=== PATIENT | male | born 1940 | race African-American/Black ===

== ENCOUNTER 2017-06-04 02:59 | Inpatient (IN) | payer MEDICARE ==
--- OUTSIDE RECORDS SUMMARY | 2017-06-04 03:02 | XMS | Continuity of Care Document ---
:[address] [facility] Care Team Providers Name Role Phone NOLOCAL, PRIMARY Primary Care Physician Unavailable Insurance Providers Payer Name Policy Number Subscriber Name Relationship VISN 16 [facility] [id number] LISA MONDRAGON SELF/SAME PATIENT Advance Directives Directive Response Recorded Date/Time Advance Directive? N 03/08/16 5:18pm Living Will? N 03/08/16 5:18pm Health Care Proxy? N 03/08/16 5:18pm Healthcare Power of Dry Primer Powder Blender? N 03/08/16 5:18pm Is the patient an Organ Donor? N 03/08/16 5:18pm Chief Complaint and Reason for Visit Reason for Visit "OFF BALANCE,ELEVATED BP" Problems No problem information available. Medications Current Home Medications Medication Dose Units Route Directions Days/Qty Instructions Start Date Clonidine 0.2 MG PO EVERY DAY @ 0900 14 03/08/16 Hydrochloride (CLONIDINE 0.2 MG TAB) 0.2 MG TAB Meclizine HCl 25 MG PO TWICE A DAY 14 03/08/16 (MECLIZINE 25 MG (0900; 2100) PRN TAB) 25 MG TAB DIZZINESS Social History Problem Response Recorded Date Recreational drugs? N 03/08/16 Alcohol? Y 03/08/16 Query Response Start Date Stop Date Smoking Status: Never Smoker Hospital Discharge Instructions No hospital discharge instructions. Plan of Care Discharge Date 03/08/16 Disposition HOME/SELF CARE Condition at Discharge STABLE Instructions/Education Provided DI for High Blood Pressure DI for Arthritis Forms Provided Discharge Form Prescriptions See Medications Section Referrals NOLOCAL,PRIMARY CARE DOC - Additional Instructions/Education USE EXTRA STRENGTH TYLENOL DIRECTED OR LOW DOSE IBUPROFEN DIRECTED FOR MORNING STIFFNESS OF ARTHRITIS USE MEDICATIONS DIRECTED PROVIDED TO YOU AND FOLLOWUP WITH YOUR PCP OR CLINIC SOON POSSIBLE Functional Status No functional status results. Allergies, Adverse Reactions, Alerts Allergen Type Severity Reaction Status Last Updated Iodine Allergy Unknown Active 03/08/16 Immunizations No Known History of Immunizations. Vital Signs Vital Reading Collection Date/Time Result Blood Pressure 03/08/16 7:37pm 151/70 Blood Pressure Source 03/08/16 7:07pm Manual Cuff Patient Temperature 03/08/16 7:37pm 98.1 Temperature Source 03/08/16 7:07pm Tympanic Respiratory Rate 03/08/16 7:16pm 17 Pulse Rate 03/08/16 7:37pm 88 Pulse Location 03/08/16 7:07pm Monitor Bedside Pulse Oximetry 03/08/16 7:37pm 98 Height 03/08/16 3:51pm 165.10 cm Height 03/08/16 3:51pm 5 ft 5.00 in Weight 03/08/16 3:51pm 71.214 kg Weight 03/08/16 3:51pm 157 lb 0.00 oz Body Mass Index 03/08/16 3:51pm 26.1 Results Laboratory Results Test Name Result Units Flags Reference Collection Result Comments Date/Time Date/Time White Blood Count 6.8 K/uL 4.8-10.8 03/08/16 03/08/16 5:20pm 5:45pm Red Blood Count 6.07 M/uL H 4.70-6.00 03/08/16 03/08/16 5:20pm 5:45pm Hemoglobin 15.7 g/dL 13.5-17.5 03/08/16 03/08/16 5:20pm 5:45pm Hematocrit 48.7 % 42.0-52.0 03/08/16 03/08/16 5:20pm 5:45pm Mean Corpuscular 80.2 fl 80.0-100.0 03/08/16 03/08/16 Volume 5:20pm 5:45pm Mean Corpuscular 25.9 pg L 27.0-31.0 03/08/16 03/08/16 Hemoglobin 5:20pm 5:45pm Mean Corpuscular 32.3 g/dL 32.0-36.0 03/08/16 03/08/16 Hgb Concent Diff 5:20pm 5:45pm Red Cell 15.9 % H 11.5-14.5 03/08/16 03/08/16 Distribution Width 5:20pm 5:45pm Platelet Count 296 K/uL 130-400 03/08/16 03/08/16 5:20pm 5:45pm Mean Platelet 8.2 fl 03/08/16 03/08/16 Volume 5:20pm 5:45pm Granulocytes (%) 62.8 % 50.0-75.0 03/08/16 03/08/16 5:20pm 5:45pm Lymphocytes % 28.0 % 20.0-40.0 03/08/16 03/08/16 5:20pm 5:45pm Monocytes % 5.6 % 0.0-15.0 03/08/16 03/08/16 5:20pm 5:45pm Eosinophils % 2.9 % 0.0-10.0 03/08/16 03/08/16 5:20pm 5:45pm Basophils % 0.7 % 0.0-2.0 03/08/16 03/08/16 5:20pm 5:45pm Granulocytes # 4.3 K/uL 1.8-6.4 03/08/16 03/08/16 5:20pm 5:45pm Lymphocytes # 1.9 K/uL 1.2-3.6 03/08/16 03/08/16 5:20pm 5:45pm Monocytes # 0.4 K/uL 0.3-0.9 03/08/16 03/08/16 5:20pm 5:45pm Eosinophils # 0.2 K/ul 0.0-0.5 03/08/16 03/08/16 5:20pm 5:45pm BASO # 0.0 K/uL 0.0-0.2 03/08/16 03/08/16 5:20pm 5:45pm Manual NO 03/08/16 03/08/16 Differential 5:20pm 5:45pm Sodium Level 141 mmol/L 135-144 03/08/16 03/08/16 5:20pm 5:50pm Potassium Level 4.0 mmol/L 3.5-5.1 03/08/16 03/08/16 5:20pm 5:50pm Chloride Level 104 mmol/L 101-111 03/08/16 03/08/16 5:20pm 5:50pm Carbon Dioxide 26 mmol/L 22-32 03/08/16 03/08/16 Level 5:20pm 5:50pm Anion Gap 15.0 mmol/L 10-20 03/08/16 03/08/16 5:20pm 5:50pm Random Glucose 82 mg/dL 70-109 03/08/16 03/08/16 Random glucose > 200 mg/dL in a patient with typical 5:20pm 5:50pm symptoms of diabetes (polydipsia, polyuria and unexplained weight loss) satisfies ADA criteria for diabetes mellitus if confirmed by repeat testing on another day. Confirmation is unnecessary when acute metabolic decompensation with hyperglycemia is manifested. Reference: Report of the Expert Committee on the Diagnosis and Classification of Diabetes Mellitus. Diabetes Care, 20:1183, 1997. Blood Urea 15 mg/dL 8-26 03/08/16 03/08/16 Nitrogen 5:20pm 5:50pm Creatinine 1.10 mg/dL 0.61-1.24 03/08/16 03/08/16 5:20pm 5:50pm EGFR Note > 60.0 03/08/16 03/08/16 eGFR (Estimated Glomerular Filtration Rate) 5:20pm 5:50pm Reference Range: >60 ml/min/1.73m eGFR calculation value obtained using the MDRD equation. The reportable reference ranges is recommended to be greater than 60 ml/min/1.73m. This is an estimation of the patient's GFR and clinical correlation is recommended. Calcium Level 9.6 mg/dL 8.9-10.3 03/08/16 03/08/16 5:20pm 5:50pm Albumin 4.4 g/dL 3.5-5.0 03/08/16 03/08/16 5:20pm 5:50pm Total Bilirubin 0.5 mg/dL 0.3-1.2 03/08/16 03/08/16 5:20pm 5:50pm Alkaline 92 IU/L H 32-91 03/08/16 03/08/16 Phosphatase 5:20pm 5:50pm Total Protein 8.2 g/dL H 6.5-8.1 03/08/16 03/08/16 5:20pm 5:50pm Alanine 20 IU/L 7-55 03/08/16 03/08/16 Aminotransferase 5:20pm 5:50pm (ALT/SGPT) Aspartate Amino 22 IU/L 15-41 03/08/16 03/08/16 Transf (AST/SGOT) 5:20pm 5:50pm Globulin 3.8 g/dL H 2.3-3.5 03/08/16 03/08/16 5:20pm 5:50pm Albumin/Globulin 1.0 L 1.2-2.2 03/08/16 03/08/16 Ratio 5:20pm 5:50pm Lipase 22 U/L 22-51 03/08/16 03/08/16 5:20pm 5:50pm Procedures No Known History of Procedures. Encounters Encounter Location Arrival/Admit Date Discharge/Depart Date Attending Provider Departed [facility] 03/08/16 3:47pm 03/08/16 7:37pm Randell GAMBLE [facility] Encounter Diagnosis
[2017-06-04 04:00] LABS: Troponin I 0.049 ng/mL (< 0.028)
[2017-06-04] MEDS ORDERED: Mag-Al 1200 mg/1200 mg/30 ML UDCUP PO PRN (05:42)
[2017-06-04] MEDS ORDERED: Nitroglycerin 0.4 MG TAB (25 Tab Bottle) PO PRN (05:42)
[2017-06-04] MEDS ORDERED: Ondansetron ODT 4 MG TAB PO PRN (05:42)
[2017-06-04] MEDS ORDERED: Senokot 8.6 MG TAB PO PRN (05:42)
[2017-06-04] MEDS ORDERED: Aspirin 300 MG Suppository PR SCH (05:45)
[2017-06-04] MEDS ORDERED: Dextrose 50% Abboject 50 ML SYRINGE SLOW IVP PRN (05:46)
[2017-06-04] MEDS ORDERED: Dextrose 5% in Water 1,000 ML IV PRN (05:46)
[2017-06-04] MEDS ORDERED: HumaLOG 300 UNITS/3 ML VIAL SC PRN ×2 (05:46)
[2017-06-04 06:30] VITALS: BMI 27.7
[2017-06-04 06:44] LABS: Troponin I 0.073 ng/mL (< 0.028)
--- NOTE | 2017-06-04 07:15 | HP-2 ---
DATE OF ADMISSION: 06/04/2017 TIME: 0500 CODE STATUS: FULL CODE. PRIMARY CARE PHYSICIAN: Glory cheema, transferred from [place]. ATTENDING: Dr. Pao Pate. PGY-1: Dr. Lilia Miramontes. HISTORIAN: The patient and nurses. CHIEF COMPLAINT: Altered mental status, weakness, and elevated troponin. HISTORY OF PRESENT ILLNESS: A 77-year-old male who presents to the ED as a transfer from [facility] with an elevated troponin without complaint of chest pain. The patient has a past medical histor y of Alzheimer's dementia and at baseline is alert and oriented x1. The patient is without family i n the room. The patient presented to [place] ED for weakness that was generalized and increase d altered mentation per his family. ER: The patient received 325 mg of aspirin in the ED in [place]. PAST MEDICAL HISTORY: Type 2 diabetes, hypertension, hyperlipidemia, dementia, BPH. PAST SURGICAL HISTORY: Prostatectomy, TURP. ALLERGIES: IODINE. MEDICATIONS: Aspirin 81 mg daily, omeprazole 20 mg daily, HCTZ 25 mg daily, mirtazapine 30 mg at n ight, KCl 20 mEq, amlodipine 10 mg daily, atorvastatin 40 mg daily, metoprolol 50 mg b.i.d., metform in 500 mg once a day, glyburide 5 mg daily, prazosin 1 mg at bedtime, clonidine 0.1 mg q.8 hours p.r .n. SOCIAL HISTORY: Former smoker over 10 years. Denies alcohol use, denies drug use. REVIEW OF SYSTEMS: General: Denies fevers, chills, weight changes. Eyes: Denies vision changes o r eye pain. Respiratory: Denies cough, congestion. Cardiovascular: Denies chest pain, palpitatio ns. Gastrointestinal: Denies nausea, vomiting, diarrhea, constipation. Genitourinary: Denies inc ontinence, dysuria. Skin: Denies rashes or lesions. Musculoskeletal: Denies pain or tenderness. Neurologic: Endorses weakness. Denies numbness. Psychiatric: Denies anxiety, depression. PHYSICAL EXAMINATION: VITAL SIGNS: Blood pressure 144/74, pulse 88, respiratory rate 22, T-max 99, pulse ox 95% on room a ir, current weight 86 kilograms. GENERAL: Alert and oriented x1 to person. No apparent distress, thin, not appropriately interactiv e. EYES: PERRLA. Conjunctivae within normal limits. ENT: Oropharynx within normal limits. NECK: Supple, no lymphadenopathy, no thyromegaly. CARDIOVASCULAR: Regular rate and rhythm. No murmur, rub or gallop. A 2+ pedal pulses. RESPIRATORY: Normal effort, no retractions, clear to auscultation bilaterally. SKIN: Warm and dry. ABDOMEN: Soft, nontender to palpation. Positive bowel sounds in all 4 quadrants. No masses or dis tention. EXTREMITIES: No clubbing or cyanosis. MUSCULOSKELETAL: Structure within normal limits. NEUROLOGIC: No focal deficit. GCS 15. PSYCHIATRIC: Appropriate. LABORATORY DATA AND IMAGING: CBC, white blood cell count 11.7, hemoglobin 13.8, hematocrit 43.3, pl atelets 251. Chemistry: Sodium 140, potassium 3.5, chloride 103, bicarbonate 25, BUN 19, creatinin e 1.43, glucose 153, calcium 9.6, total protein 7.2, albumin 3.8, AST 13, ALT 19, alkaline phosphata se 62, total bilirubin 0.9, GFR 58. Hemoglobin A1c 6.2. CRP 12.96. UA, blood negative, protein ne gative, leukocyte esterase negative, nitrites negative, ketones negative, glucose negative. UDS neg ative. CK-MB 1.5. Troponin 0.051, 0.049. EKG, bifascicular block. Chest x-ray, nodular opacities. Final read pending. CT of the head, no acute intracranial abnormalities. ASSESSMENT AND PLAN: 1. A 77-year-old male presents with weakness, altered mental status and found to have an elevated t roponin, admitted for ACS rule out and deconditioning. 2. ACS rule out. Unable to assess whether the patient is actually having chest pain or not due to the patient's Alzheimer disease. We will admit to inpatient telemetry. We will trend the patient's troponins to complete the ACS rule out. We will provide conservative management given the past [facility] history of dementia and other comorbidities. We will discuss goals of care with the family in the morning and determine if we will proceed with a chemical stress test. 3. Deconditioned with decrease in baseline functional status. The patient presented to [facility] with generalized weakness and altered mentation. The patient has an elevated CRP and leukocytosis of unknown infectious source. Blood cultures were ordered. The patient was without signs of skin ulcer. The patient was without signs of pneumonia on chest x-ray and without signs of infection in his urine. Case management consult will be placed to get a better story of the social environment t he patient is currently living and as the patient came in, covered in fecal matter. PT, OT and spee ch will also be consulted in the morning. 4. Diabetes type 2. Sliding scale insulin was started. 5. Acute kidney injury on chronic kidney disease stage 2. The patient was started on normal saline at 120 mL an hour. 6. Hypertension. The patient's HCTZ and amlodipine were restarted, metoprolol was held and the eleni nidine was held. 7. Benign prostatic hypertrophy. Prazosin was started. 8. Hyperlipidemia, atorvastatin 40 mg daily was started.
[2017-06-04] MEDS: Sodium Chloride 0.9% 1,000 ML IV SCH ×4 (08:54→23:40)
[2017-06-04] MEDS: Docusate 100 MG CAP PO SCH ×3 (08:56→20:20)
[2017-06-04] MEDS: Enoxaparin Sodium 30 MG/0.3 ML SYRINGE SC SCH (08:56)
[2017-06-04] MEDS: Hydrochlorothiazide 25 MG TAB PO SCH (08:56)
[2017-06-04] MEDS ORDERED: Enoxaparin Sodium 40 MG/0.4 ML SYRINGE SC SCH (09:00)
--- NOTE | 2017-06-04 09:37 | PDOC.EVN ---
Event Note - Event Note Event Note: Spoke with Dr. Sampson with Cardiology and presented him the case. He states that with his advanced dementia and eleveated troponins, but with lack of EKG changes , hypotension, or severe symptoms, invasive treatment options would not be pursued. I appreciate Dr. Sampson's recommendations and help on this difficult case.
[2017-06-04 09:49] LABS: Troponin I 0.086 ng/mL (< 0.028)
[2017-06-04] MEDS: Prazosin HCl 1 MG CAP PO SCH ×2 (11:36→20:19)
--- NOTE | 2017-06-04 11:53 | RAD ---
RADIOGRAPH CHEST 1 VIEW: HISTORY: 77-year-old male with elevated C-reactive protein. FINDINGS: The thoracic aorta is tortuous and ectatic. There is no evidence of air space density, pneumothorax , or pulmonary edema. The lateral costophrenic angles are sharp. There is no interval change since 06/03/17. IMPRESSION: 1. No acute pulmonary findings. 2. Ectasia of thoracic aorta. zohreh [] POS: APARNA
[2017-06-04 12:23] LABS: Troponin I 0.082 ng/mL (< 0.028)
[2017-06-04] MEDS ORDERED: Sodium Chloride 0.9% 1,000 ML IV SCH (14:45)
[2017-06-04 14:46] LABS: #Basophils 0.1 thou/uL (0.0-0.2); #Lymphocytes 1.2 thou/uL (1.20-3.40); #Monocytes 1.5 thou/uL (0.11-0.59); #Neutrophils 12.2 thou/uL (1.40-6.50); %Basophils 0.3 % (0.0-1.0); %Eosinophils 0.1 % (0.0-10.0); %Lymphocytes 8.1 % (21.0-51.0); Hematocrit 45.6 % (42.0-52.0); Mean Platelet Volume 7.3 fL (7.4-10.4); Red Blood Cell (RBC) Count 5.33 mill/uL (4.70-6.10)
--- NOTE | 2017-06-04 15:05 | PDOC.EVN ---
Event Note - Event Note Event Note: I was called by the nurse about a temp of 103.0 around 1415. Myself and Dr. Alvares went and evaluated the patient. Patient is alert, but fidgeting with lines, very tremulous, and not responding to questions appropriately, not speaking in sentences. Has dementia at baseline, but speaking with the nurse, he was speaking in full sentences this morning, talking about his recent birthday and such. VS: P-128 RR- 30 T-103.0 PE: General: AOx0, in NAD HEENT: no neck tenderness, negative chin to chest test for stiffness CV: sinus tachycardia, no murmurs Lungs: CTAB Abd: soft, mildly distended, possibly some guarding, and hyperactive bowel sounds : No scrotal tenderness or swelling Extremities: No edema, R knee with mild swelling, no erythema, extremely tender to palpation along medial joint line and extreme tenderness with passive ROM, no wounds noted Neuro: b/l UE hand tremors, not responding to commands, failure to move RLE, but all other extremities with motion, UE hand automotive manager strength 5/5 b/l MSK: no spinal tenderness, tenderness to palpation in b/l knee joints, but much worse in R knee, poor movement of both LE, but able to wiggle toes in LLE, no motion of RLE Plan: 1. Sepsis 2/2 unknown source: patient with fever, tachycardia, tachypnea, elevated CRP, and mild leukocytosis. Will start broad spectrum Abx (Vanc and Zosyn) until source is found and Abx can be deescalated. Urine cx and blood cx ordered. Lactic acid ordered. Will give 1L NS bolus. Possible joint infection , will obtain joint aspirate for evaluation. Will consider head CT and LP for possible meningitis.
[2017-06-04 15:06] LABS: AST (SGOT) 19 U/L (5-34); Alkaline Phosphatase 64 U/L (40-150); Anion Gap 16 mmol/L (10-20); BUN (Urea Nitrogen) 12 mg/dL (8.4-25.7); Bilirubin, Total 1.3 mg/dL (0.2-1.2); Calc. Creatinine Clearance 62 mL/min (70-130); Calcium 10.5 mg/dL (7.8-10.44); Carbon Dioxide 24 mmol/L (23-31); Chloride 99 mmol/L (98-107); Estimated GFR-MDRD 85; Globulin 3.9 g/dL (2.4-3.5); Protein, Total 7.9 g/dL (5.8-8.1)
[2017-06-04 15:07] LABS: ALT (SGPT) 20 U/L (8-55)
[2017-06-04] MEDS ORDERED: Lidocaine 1% (PF) 30 ML VIAL ONE (15:09)
[2017-06-04] MEDS ORDERED: Labetalol HCl 100 MG/20 ML VIAL SLOW IVP PRN (15:21)
[2017-06-04 15:53] LABS: BF Reference Range Comment Note:
[2017-06-04 16:08] LABS: BF Color Yellow
[2017-06-04 16:09] LABS: RBC Count-Automated 55000 /cumm
[2017-06-04 16:33] LABS: Number Cells Counted-Fluids 100
[2017-06-04] MEDS: Piperacillin/Tazobactam 3.375 GM in Sodium Chloride 0.9% 100 ML IVPB SCH ×2 (17:05→23:37)
[2017-06-04] MEDS: Acetaminophen 650 MG Suppository PR PRN ×2 (17:11→20:17)
[2017-06-04 18:28] LABS: Troponin I 0.102 ng/mL (< 0.028)
--- NOTE | 2017-06-04 19:30 | HP ---
DATE OF SERVICE: 06/04/2017 CHIEF COMPLAINT: Altered mental status, weakness, and elevated troponins. HISTORY OF PRESENT ILLNESS: The patient is a 77-year-old -[place] male, who was transferred from the [place] ER to the [place] ER with elevated troponins. The patient was apparently taken to the hospital via EMS, when the family was concerned that he was getting more weak. Per EMS reports, the patient was covered in feces when they first got to him. The patient has advanced dem entia and is unable to offer any history at this time. There are also no family members at bedside to help fill in any additional history. In the ER in [place], he was noted to have elevated tr oponins and he subsequently had been sent to [facility] for further intervention. Patient has r emained stable overnight and has been resting comfortably. For the full history on this patient, please see the resident's dictation. PHYSICAL EXAMINATION: VITAL SIGNS: Temperature 99.0, pulse 107, respiration rate 18, O2 sat 97% on room air, blood pressu re 171/81. GENERAL: The patient is resting comfortably and in no acute distress. HEENT: Pupils are equal, round, reactive to light and accommodation. Extraocular muscles are intac t. HEENT: Oropharynx and nasopharynx are without erythema or exudate. NECK: Supple without lymphadenopathy, thyromegaly, or bruits. CARDIOVASCULAR: Regular rate and rhythm without murmurs, gallops, or rubs. LUNGS: Clear to auscultation bilaterally without wheezing or rhonchi. ABDOMEN: Soft, nontender to palpation with bowel sounds present in four quadrants. There is no gua rding or rebound tenderness present. EXTREMITIES: There is no clubbing, cyanosis, or edema. MUSCULOSKELETAL: Was unable to be assessed as patient was resting. LABORATORY AND X-RAY FINDINGS: 1. CBC: WBC is 11.7, hemoglobin 13.8, hematocrit 43.3, platelet count 251. 2. Coags: PT 14.0, INR 1.1, PTT 29.0. 3. CMP: Sodium 140, potassium 3.5, chloride 103, bicarbonate 25, BUN 19, creatinine 1.43, glucose 153, calcium 9.6, total bilirubin 0.9, AST 13, ALT 19, alkaline phosphatase 62, total protein 7.2, a lbumin 3.8. 4. CRP of 12.96. 5. Troponin, 0.051, 0.049, 0.073, 0.086, 0.082. 6. CK-MB 1.4 to 1.5, CK of 155. 7. Urinalysis unremarkable. 8. Toxicology: UDS and SDS were negative. 9. CT of the brain shows no intracranial hemorrhage, but moderate white matter disease and mild vol ume loss. 10. Chest x-ray shows no acute pulmonary findings and ectasia of the thoracic aorta. 11. EKG shows a bifascicular block. ASSESSMENT AND PLAN: The patient is a 77-year-old male, who presented with generalized weakness, al tered mental status, and elevated troponins. 1. Elevated troponins: The patient has not endorsed any chest pain, shortness of breath, palpitati ons, nausea, or vomiting. Unsure how reliable he is as a historian due to his advanced dementia. W toribio will discuss the case with Cardiology to help determine whether the patient should be worked up fo r this elevated troponin. 2. Altered mental status: Urine and blood cultures are currently pending. Patient was initially a febrile and is still afebrile, though temperature is in the 99s currently. There are no overt signs of infection anywhere. We have not seen any evidence of skin breakdown or ulceration that could in dicate whether the patient has an elevated CRP. We will check a procalcitonin. We are going to rec heck the patient's chest x-ray and try to get a 2-view chest x-ray if possible. At this point in ti me, we will hold off on antibiotics, as the patient has no overt signs of infection. 3. Generalized deconditioning: We will try to contact the patient's family to figure out what his baseline is. It sounds like he was having increasing weakness at home so the patient may need to be placed in a facility for further rehabilitation. We will consult case management. 4. Type 2 diabetes: We will check a hemoglobin A1c and place the patient on a sliding scale insuli n. 5. Acute kidney injury: The patient is being started on IV fluids and we will trend his creatinine . 6. Please see the resident's dictation for the remainder of the history, physical, assessment and p eloise.
[2017-06-04] MEDS: Vancomycin HCl 1 GM in Premix Bag 1 BAG IVPB SCH (20:19)
[2017-06-04] MEDS: Atorvastatin Calcium 40 MG TAB PO SCH (20:19)
[2017-06-05] MEDS: Sodium Chloride 0.9% 1,000 ML IV SCH ×3 (04:20→23:37)
[2017-06-05] MEDS: Piperacillin/Tazobactam 3.375 GM in Sodium Chloride 0.9% 100 ML IVPB SCH ×4 (05:54→23:37)
[2017-06-05 06:09] LABS: #Monocytes 1.2 thou/uL (0.11-0.59); #Neutrophils 11.5 thou/uL (1.40-6.50); %Basophils 0.1 % (0.0-1.0); %Lymphocytes 7.3 % (21.0-51.0); %Monocytes 8.8 % (0.0-10.0); Hematocrit 38.9 % (42.0-52.0); Mean Platelet Volume 7.5 fL (7.4-10.4); Red Blood Cell (RBC) Count 4.55 mill/uL (4.70-6.10); White Blood Cell (WBC) Count 13.7 thou/uL (4.8-10.8)
[2017-06-05 06:32] LABS: Anion Gap 10 mmol/L (10-20); BUN (Urea Nitrogen) 14 mg/dL (8.4-25.7); Calc. Creatinine Clearance 54 mL/min (70-130); Calcium 9.1 mg/dL (7.8-10.44); Carbon Dioxide 25 mmol/L (23-31); Chloride 108 mmol/L (98-107); Cholesterol 107 mg/dl (< 200 Desired); Estimated GFR-MDRD 73; LDL Cholesterol, Calculated 56 mg/dL
--- NOTE | 2017-06-05 08:06 | PDOC.FM ---
- Subjective Subjective: Patient states he had a good night. He states he was able to get some rest. He has dementia at baseline. Apparently he had an episode where he became more altered yesterday with tachycardia, fever, and tachypnea. That has since resolved. I will contact his family for more information and further treatment plans. - Objective Vital Signs & Weight: Vital Signs (12 hours) Temp Pulse Resp BP Pulse Ox 06/05/17 04:00 98.7 F 99 18 131/61 98 06/04/17 23:30 98.7 F 97 20 136/67 100 06/04/17 22:00 99.2 F 06/04/17 20:05 102 F H 102 H 24 H 161/77 H 98 Weight Weight 71.894 kg I&O: 06/04/17 06/05/17 06/06/17 06:59 06:59 06:59 Intake Total 3310 Output Total 1200 Balance 2110 Result Diagrams: 06/05/17 05:48 06/05/17 05:48 <Mustapha Lama - Last Filed: 06/05/17 10:23> - Objective Vital Signs & Weight: Vital Signs (12 hours) Temp Pulse Resp BP BP Pulse Ox 06/05/17 08:35 99 145/68 H 06/05/17 04:00 98.7 F 99 18 131/61 98 Weight Weight 71.894 kg I&O: 06/04/17 06/05/17 06/06/17 06:59 06:59 06:59 Intake Total 3310 Output Total 1200 Balance 2110 Result Diagrams: 06/05/17 05:48 06/05/17 05:48 <Irvin Agustin - Last Filed: 06/05/17 12:35> Phys Exam - Physical Examination HEENT: PERRLA Neck: no nodes, supple Respiratory: no wheezing, clear to auscultation bilateral Cardiovascular: RRR, no significant murmur Gastrointestinal: soft, non-tender, no distention, positive bowel sounds Musculoskeletal: no edema, pulses present Tenderness, swelling, and warmth to right knee. Neurological: non-focal, moves all 4 limbs (Does not want to move Right knee as much as left. ) Generalized weakness. usually walks at home, but can't now. Psychiatric: normal affect Deviation from normal: Dementia Skin: no rash <Mustapha Lama - Last Filed: 06/05/17 10:23> Dx/Plan (1) Sepsis Code(s): A41.9 - SEPSIS, UNSPECIFIED ORGANISM Status: Acute Plan: Episode yesterday. -Likely a source of the Right knee. -elevated CRP 12 on admission -Leukocytosis, monitor CBC -Continue broad spectrum antibiotics until source is known. (2) Inflammation of joint of right knee Code(s): M13.161 - MONOARTHRITIS, NOT ELSEWHERE CLASSIFIED, RIGHT KNEE Status : Acute Plan: Synovial cultures pending ROM decreased Warm and tender joint. (3) Dementia Code(s): F03.90 - UNSPECIFIED DEMENTIA WITHOUT BEHAVIORAL DISTURBANCE Status: Acute Plan: Likely need group home placement. (4) Physical deconditioning Code(s): R53.81 - OTHER MALAISE Status: Acute Plan: Likely need terminal manager placement. (5) Diabetes mellitus Code(s): E11.9 - TYPE 2 DIABETES MELLITUS WITHOUT COMPLICATIONS Status: Acute Plan: -Continue sliding scale insulin -Accuchecks. (6) HTN (hypertension) Code(s): I10 - ESSENTIAL (PRIMARY) HYPERTENSION Status: Acute Plan: -HCTZ and amlopidine from home meds restarted -Labetalol PRN (7) HLD (hyperlipidemia) Code(s): E78.5 - HYPERLIPIDEMIA, UNSPECIFIED Status: Acute Plan: Continue statin (8) [id number] kidney injury Code(s): N17.9 - ACUTE KIDNEY FAILURE, UNSPECIFIED; N18.9 - CHRONIC KIDNEY DISEASE, UNSPECIFIED Status: Acute Plan: -Continue IVF -Monitor with BMP (9) BPH (benign prostatic hyperplasia) Code(s): N40.0 - BENIGN PROSTATIC HYPERPLASIA WITHOUT LOWER URINRY TRACT SYMP Status: Acute Plan: Started Prazosin (10) Elevated troponin Code(s): R74.8 - ABNORMAL LEVELS OF OTHER SERUM ENZYMES Status: Acute Plan: -Discussed case with Dr. Sampson with Cardiology -Recommends no invasive treatment unless symptomatic with EKG changes -Will monitor with EKG and troponins if chest pain occurs. - Plan Plan: Will need discussion with family over group home placement and treatment goals. <Mustapha Lama - Last Filed: 06/05/17 10:23> Attending Addendum - Attending Addendum I personally evaluated the patient and discussed the management with Dr. Lama. I agree with the History, Examination, Assessment and Plan documented above with any addition or exceptions noted below. Alert during my exam. Endorses pain in both knees R>L. Pain with R knee extension or flexion. Culture and Crystals from R knee aspirate pending. A: Sepsis from Right septic knee arthritris vs gout/pseudogout. P: Continue IV Vanc/Zosyn. Await knee aspirate culture/sensitivity and joint fluid for crystals. Mohsen <Irvin Agustin - Last Filed: 06/05/17 12:35>
[2017-06-05] MEDS: Vancomycin HCl 1 GM in Premix Bag 1 BAG IVPB SCH ×2 (08:33→20:42)
[2017-06-05] MEDS: Prazosin HCl 1 MG CAP PO SCH ×2 (08:34→20:43)
[2017-06-05] MEDS: Hydrochlorothiazide 25 MG TAB PO SCH (08:34)
[2017-06-05] MEDS: Enoxaparin Sodium 30 MG/0.3 ML SYRINGE SC SCH (08:35)
[2017-06-05] MEDS: Docusate 100 MG CAP PO SCH ×2 (08:35→20:43)
[2017-06-05] MEDS ORDERED: Enoxaparin Sodium 40 MG/0.4 ML SYRINGE SC SCH (09:00)
[2017-06-05] MEDS: Acetaminophen 325 MG TAB PO PRN (20:43)
[2017-06-05] MEDS: Atorvastatin Calcium 40 MG TAB PO SCH (20:43)
[2017-06-06] MEDS: Piperacillin/Tazobactam 3.375 GM in Sodium Chloride 0.9% 100 ML IVPB SCH ×3 (06:05→17:39)
[2017-06-06 06:38] LABS: #Lymphocytes 0.9 thou/uL (1.20-3.40); #Monocytes 1.1 thou/uL (0.11-0.59); #Neutrophils 10.1 thou/uL (1.40-6.50); %Basophils 0.1 % (0.0-1.0); %Eosinophils 0.1 % (0.0-10.0); %Lymphocytes 7.3 % (21.0-51.0); Hematocrit 35.6 % (42.0-52.0); Mean Platelet Volume 7.7 fL (7.4-10.4); Red Blood Cell (RBC) Count 4.15 mill/uL (4.70-6.10); White Blood Cell (WBC) Count 12.1 thou/uL (4.8-10.8)
--- NOTE | 2017-06-06 06:48 | PDOC.FM ---
Addendum entered and electronically signed by Mustapha Lama MD 06/06/17 11: 37: Patient was found to have Uric acid crystals on knee synovial fluid sample. Will work up as Acute gout exacerbation. Will await blood cultures before discontinuing antibiotics. If blood cultures negative will no longer work with Sepsis diagnosis. Original Note: - Subjective Subjective: Patient states he had a good night. He does state the street catheter bothers him. He denies chest pain, sob, n/v/d. He does note that his Right knee is still painful and does not like to move it. Family and Case management are working together on a placement plan. - Objective Vital Signs & Weight: Vital Signs (12 hours) Temp Pulse Resp BP Pulse Ox 06/06/17 04:00 98.5 F 82 18 148/69 H 96 06/05/17 20:00 100.9 F H 96 16 06/05/17 19:36 100.9 F H 96 16 138/61 Weight Weight 73.936 kg I&O: 06/04/17 06/05/17 06/06/17 06:59 06:59 06:59 Intake Total 3310 3790 Output Total 1200 3200 Balance 2110 590 Result Diagrams: 06/06/17 06:19 06/05/17 05:48 <Mustapha Lama - Last Filed: 06/06/17 11:37> - Objective Vital Signs & Weight: Vital Signs (12 hours) Temp Pulse Resp BP Pulse Ox 06/07/17 08:56 72 06/07/17 08:00 97.5 F L 72 16 139/67 99 06/07/17 04:00 97.9 F 86 22 H 164/76 H 99 06/07/17 00:00 98.0 F 68 20 154/76 H 99 Weight Weight 73.437 kg I&O: 06/06/17 06/07/17 06/08/17 06:59 06:59 06:59 Intake Total 3790 800 Output Total 3200 2000 Balance 590 -1200 Result Diagrams: 06/06/17 06:19 06/06/17 06:19 <Irvin Agustin - Last Filed: 06/07/17 09:12> Phys Exam - Physical Examination HEENT: PERRLA, moist MMs Neck: no nodes, supple Respiratory: no wheezing, clear to auscultation bilateral Cardiovascular: RRR, no significant murmur Gastrointestinal: soft, non-tender, no distention, positive bowel sounds Musculoskeletal: no edema, pulses present Neurological: non-focal, normal sensation, moves all 4 limbs Psychiatric: normal affect Skin: no rash <Mustapha Lama - Last Filed: 06/06/17 11:37> Dx/Plan (2) Inflammation of joint of right knee Code(s): M13.161 - MONOARTHRITIS, NOT ELSEWHERE CLASSIFIED, RIGHT KNEE Status : Acute Plan: -Synovial cultures pending -ROM decreased -Warm and tender joint. -Improving (3) Dementia Code(s): F03.90 - UNSPECIFIED DEMENTIA WITHOUT BEHAVIORAL DISTURBANCE Status: Acute Plan: Likely need detention placement. (4) Physical deconditioning Code(s): R53.81 - OTHER MALAISE Status: Acute Plan: Likely need detention placement. (5) Diabetes mellitus Code(s): E11.9 - TYPE 2 DIABETES MELLITUS WITHOUT COMPLICATIONS Status: Acute Plan: -Continue sliding scale insulin -Accuchecks. (6) HTN (hypertension) Code(s): I10 - ESSENTIAL (PRIMARY) HYPERTENSION Status: Acute Plan: -HCTZ and amlopidine from home meds restarted -Labetalol PRN (7) HLD (hyperlipidemia) Code(s): E78.5 - HYPERLIPIDEMIA, UNSPECIFIED Status: Acute Plan: Continue statin (8) Kvchi-tb-yfbbdpj kidney injury Code(s): N17.9 - ACUTE KIDNEY FAILURE, UNSPECIFIED; N18.9 - CHRONIC KIDNEY DISEASE, UNSPECIFIED Status: Acute Plan: -Continue IVF -Monitor with BMP (9) BPH (benign prostatic hyperplasia) Code(s): N40.0 - BENIGN PROSTATIC HYPERPLASIA WITHOUT LOWER URINRY TRACT SYMP Status: Acute Plan: Started Prazosin (10) Elevated troponin Code(s): R74.8 - ABNORMAL LEVELS OF OTHER SERUM ENZYMES Status: Acute Plan: -Discussed case with Dr. Sampson with Cardiology -Recommends no invasive treatment unless symptomatic with EKG changes -Will monitor with EKG and troponins if chest pain occurs. (11) Sepsis Code(s): A41.9 - SEPSIS, UNSPECIFIED ORGANISM Status: Acute Plan: Episode yesterday. -Likely a source of the Right knee. -elevated CRP 12 on admission -Leukocytosis, monitor CBC -Awaiting cultures -Continue broad spectrum antibiotics until source is known. - Plan Plan: Await case management with placement <Mustapha Lama - Last Filed: 06/06/17 11:37> Attending Addendum - Attending Addendum I personally evaluated the patient and discussed the management on DOS 06/[address] Lama. I agree with the History, Examination, Assessment and Plan documented above with any addition or exceptions noted below. Right knee appears less swollen and the heat and redness have resolved. He is still having pain with any flexion/extension from bent 30 degrees of flexion. Aspirate revealed Uric Acid crystals. A: Sepsis due to acute gouty arthritis of right knee. Sepsis resolved. P: Start Indomethacin tid, colchicine. Check Uric acid and monitor CRP and/or Sed rate along with clinical exam for improvement. [facility] <Irvin Agustin - Last Filed: 06/07/17 09:12>
[2017-06-06 07:00] LABS: Anion Gap 11 mmol/L (10-20); BUN (Urea Nitrogen) 15 mg/dL (8.4-25.7); Calc. Creatinine Clearance 58 mL/min (70-130); Calcium 8.9 mg/dL (7.8-10.44); Carbon Dioxide 23 mmol/L (23-31); Chloride 110 mmol/L (98-107); Estimated GFR-MDRD 78
[2017-06-06] MEDS: Docusate 100 MG CAP PO SCH ×2 (09:45→20:59)
[2017-06-06] MEDS: Prazosin HCl 1 MG CAP PO SCH ×2 (09:45→20:59)
[2017-06-06] MEDS: Hydrochlorothiazide 25 MG TAB PO SCH (09:45)
[2017-06-06] MEDS: Enoxaparin Sodium 30 MG/0.3 ML SYRINGE SC SCH (09:46)
[2017-06-06] MEDS: Vancomycin HCl 1 GM in Premix Bag 1 BAG IVPB SCH ×2 (09:46→20:57)
--- NOTE | 2017-06-06 10:42 | PQF ---
CLINICAL DOCUMENTATION IMPROVEMENT CLARIFICATION FORM: ICD-10 Updated PLEASE DO AN ADDENDUM TO THE PROGRESS NOTE WITH ANY DOCUMENTATION UPDATES OR ADDITIONS AND CARRY THROUGH TO DC SUMMARY. THANK YOU. DATE: 06/06 ATTN : DR. ROMÁN RENDON/ DR. Bernardo GAINES Please exercise your independent, professional judgment in responding to the clarification form. Clinical indicators are provided on the bottom of this form for your review Please check appropriate box(s): [ X] Encephalopathy: Type: [ X ] Acute [ ] Subacute [ ] Chronic Etiology: [ ] Metabolic [ ] Toxic [ X ] Septic [ ] Unspecified [ ] in the setting of underlying dementia [ ] Other (please specify) [ ] Transient Alteration of Awareness [ ] Other diagnosis [ ] Unable to determine In addition, please specify: Present on Admission (POA): [ ] Yes [ ] No [ ] Unable to determine For continuity of documentation, please document condition throughout progress notes and discharge summary. Thank You. CLINICAL INDICATORS - SIGNS / SYMPTOMS / LABS ER PHYSICIAN DOCUMENTATION 06/04: PT TRANSFERRED FROM [place] FOR ELEVATED TROPONINS, WEAKNESS & AMS. PT ALTERED FROM BASELINE ATTENDING H&P DOCUMENTATION 06/04: HX OF PRESENT ILLNESS: PT PRESENTED TO [place] ED FOR WEAKNESS & INCREASED AMS PER HIS FAMILY ASSESSMENT & PLAN: 2: AMS ATTENDING PHYSICIAN EVENT NOTE 06/04: CALLED BY NURSE ABOUT T: 103.0 AROUND 1415. PATIENT IS ALERT, BUT FIDGETING W/LINES, VERY TREMULOUS, AND NOT RESPONDING TO QUESTIONS APPROPRIATELY, NOT SPEAKING IN SENTENCES. HAS DEMENTIA AT BASELINE, BUT SPEAKING WITH THE NURSE, HE WAS SPEAKING IN FULL SENTENCES THIS MORNING, TALKING ABOUT HIS RECENT BIRTHDAY AND SUCH. PLAN: 1. SEPSIS 2/2 UNKNOWN SOURCE WBC: 15.0 RISK FACTORS SEPSIS OF UNKNOWN SOURCE FEVER ALZHEIMER'S DEMENTIA - ALTERED FROM BASELINE TREATMENTS: IV ANTIBIOTICS (ZOSYN & VANCOMYCIN 06/04 TO PRESENT) TELEMETRY MONITORING IVF (NS 06/04 - PRESENT) THANK YOU! Sun (This form is maintained as a part of the permanent medical record) 2014 [employer]. All Rights Reserved Sun Boyle RN, BSN [email or web address] Office: [phone] [facility]
[2017-06-06] MEDS: Sodium Chloride 0.9% 1,000 ML IV SCH ×2 (10:57→14:16)
[2017-06-06 11:00] LABS: Vancomycin, Trough 27.8 ug/mL
[2017-06-06 11:42] LABS: Uric Acid 3.6 mg/dL (3.5-7.2)
[2017-06-06] MEDS: Indomethacin 25 mg Capsule PO SCH ×2 (14:22→20:58)
[2017-06-06] MEDS: Atorvastatin Calcium 40 MG TAB PO SCH (20:58)
[2017-06-06] MEDS: Colchicine 0.6 MG TAB PO SCH (20:58)
[2017-06-06] MEDS: Acetaminophen 325 MG TAB PO PRN (20:58)
[2017-06-07] MEDS: Piperacillin/Tazobactam 3.375 GM in Sodium Chloride 0.9% 100 ML IVPB SCH ×2 (00:38→05:45)
--- NOTE | 2017-06-07 06:44 | PDOC.FM ---
- Subjective Subjective: Patient states he slept all night. He states his knee feels a ton better. He can move his knee now and it doesn't feel as swollen. His only complaint is his street catheter today and I will D/c that this morning. He is awaiting placement into longterm care. - Objective Vital Signs & Weight: Vital Signs (12 hours) Temp Pulse Resp BP Pulse Ox 06/07/17 04:00 97.9 F 86 22 H 164/76 H 99 06/07/17 00:00 98.0 F 68 20 154/76 H 99 06/06/17 20:00 99.1 F 76 20 141/69 H 99 Weight Weight 73.437 kg I&O: 06/05/17 06/06/17 06/07/17 06:59 06:59 06:59 Intake Total 3310 3790 800 Output Total 1200 3200 2000 Balance 2110 590 -1200 Result Diagrams: 06/07/17 10:30 06/07/17 10:30 <Mustapha Lama - Last Filed: 06/07/17 11:26> - Objective Vital Signs & Weight: Vital Signs (12 hours) Temp Pulse Resp BP Pulse Ox 06/07/17 08:56 72 06/07/17 08:00 97.5 F L 72 16 139/67 99 06/07/17 04:00 97.9 F 86 22 H 164/76 H 99 06/07/17 00:00 98.0 F 68 20 154/76 H 99 Weight Weight 73.437 kg I&O: 06/06/17 06/07/17 06/08/17 06:59 06:59 06:59 Intake Total 3790 800 Output Total 3200 2000 100 Balance 590 -1200 -100 Result Diagrams: 06/07/17 10:30 06/07/17 10:30 <Irvin Agustin - Last Filed: 06/07/17 11:41> Phys Exam - Physical Examination HEENT: PERRLA, moist MMs Neck: no nodes, supple Respiratory: no wheezing, clear to auscultation bilateral Cardiovascular: RRR, no significant murmur Gastrointestinal: soft, non-tender, no distention, positive bowel sounds Musculoskeletal: no edema, pulses present Right knee less swollen and more ROM today. Neurological: moves all 4 limbs Psychiatric: normal affect <Mustapha Lama - Last Filed: 06/07/17 11:26> Dx/Plan (1) Gout attack Code(s): M10.9 - GOUT, UNSPECIFIED Status: Acute Plan: -Urate crystals found on synovial fluid sample. -Has had in past. -Started colchicine and indomethacin. (2) Inflammation of joint of right knee Code(s): M13.161 - MONOARTHRITIS, NOT ELSEWHERE CLASSIFIED, RIGHT KNEE Status : Acute Plan: -Synovial cultures pending -ROM decreased -Warm and tender joint. -Improving (3) Dementia Code(s): F03.90 - UNSPECIFIED DEMENTIA WITHOUT BEHAVIORAL DISTURBANCE Status: Acute Plan: Likely need longterm placement. (4) Physical deconditioning Code(s): R53.81 - OTHER MALAISE Status: Acute Plan: Likely need longterm placement. (5) Diabetes mellitus Code(s): E11.9 - TYPE 2 DIABETES MELLITUS WITHOUT COMPLICATIONS Status: Acute Plan: -Continue sliding scale insulin -Accuchecks. (6) HTN (hypertension) Code(s): I10 - ESSENTIAL (PRIMARY) HYPERTENSION Status: Acute Plan: -HCTZ and amlopidine from home meds restarted -Labetalol PRN (7) HLD (hyperlipidemia) Code(s): E78.5 - HYPERLIPIDEMIA, UNSPECIFIED Status: Acute Plan: Continue statin (8) Pppxk-cm-xqpdpym kidney injury Code(s): N17.9 - ACUTE KIDNEY FAILURE, UNSPECIFIED; N18.9 - CHRONIC KIDNEY DISEASE, UNSPECIFIED Status: Acute Plan: -IVF discontinued. -Likely resolved. (9) BPH (benign prostatic hyperplasia) Code(s): N40.0 - BENIGN PROSTATIC HYPERPLASIA WITHOUT LOWER URINRY TRACT SYMP Status: Acute Plan: Started Prazosin (10) Elevated troponin Code(s): R74.8 - ABNORMAL LEVELS OF OTHER SERUM ENZYMES Status: Acute Plan: -Discussed case with Dr. Sampson with Cardiology -Recommends no invasive treatment unless symptomatic with EKG changes -Will monitor with EKG and troponins if chest pain occurs. - Plan Plan: Decided on swingbed in [place]. Awaiting bed opening and insurance approval. <Mustapha Lama - Last Filed: 06/07/17 11:26> Attending Addendum - Attending Addendum I personally evaluated the patient and discussed the management with Dr. Lama. I agree with the History, Examination, Assessment and Plan documented above with any addition or exceptions noted below. Moving right knee without pain. No redness, tenderness or effusion. A: Acute gout improved on NSAID and colchicine. P: await placement for swing bed in [place], continue meds and PT. D/C antibiotics. [facility] <Irvin Agustin - Last Filed: 06/07/17 11:41>
[2017-06-07] MEDS: Colchicine 0.6 MG TAB PO SCH (08:56)
[2017-06-07] MEDS: Docusate 100 MG CAP PO SCH (08:56)
[2017-06-07] MEDS: Hydrochlorothiazide 25 MG TAB PO SCH (08:57)
[2017-06-07] MEDS: Indomethacin 25 mg Capsule PO SCH (08:57)
[2017-06-07] MEDS: Prazosin HCl 1 MG CAP PO SCH (08:57)
[2017-06-07] MEDS: Enoxaparin Sodium 30 MG/0.3 ML SYRINGE SC SCH (08:57)
[2017-06-07 10:55] LABS: #Eosinphils 0.1 thou/uL (0.0-0.7); #Lymphocytes 0.7 thou/uL (1.20-3.40); #Monocytes 0.5 thou/uL (0.11-0.59); #Neutrophils 6.8 thou/uL (1.40-6.50); %Basophils 0.2 % (0.0-1.0); %Eosinophils 0.8 % (0.0-10.0); %Lymphocytes 8.3 % (21.0-51.0); %Monocytes 6.6 % (0.0-10.0); Hematocrit 36.6 % (42.0-52.0); Mean Platelet Volume 7.5 fL (7.4-10.4); Red Blood Cell (RBC) Count 4.28 mill/uL (4.70-6.10)
[2017-06-07 11:18] LABS: Anion Gap 12 mmol/L (10-20); BUN (Urea Nitrogen) 15 mg/dL (8.4-25.7); Calc. Creatinine Clearance 61 mL/min (70-130); Calcium 9.3 mg/dL (7.8-10.44); Carbon Dioxide 25 mmol/L (23-31); Chloride 106 mmol/L (98-107); Estimated GFR-MDRD 83
[2017-06-07 12:36] VITALS: BP 162/75; TEMP 97.8
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
--- NOTE | 2017-06-10 11:57 | EKG ---
Test Reason : ELEVEATE TROP Blood Pressure : / mmHG Vent. Rate : 094 BPM Atrial Rate : 094 BPM P-R Int : 162 ms QRS Dur : 120 ms QT Int : 362 ms P-R-T Axes : 047 -64 021 degrees QTc Int : 452 ms Normal sinus rhythm Right bundle branch block Left anterior fascicular block Bifascicular block Abnormal ECG Confirmed by REBECCA STEINBERG, MADONNA ([id number]), editor farm journal JIM PATE ([id number]) on 06/10/2017 11:57:24 AM Referred By: Confirmed By:MADONNA FERNANDEZ MD
== END 2017-06-07 15:31 | DRG 871 ==
LOC: ERS 02:59 → 2NO 05:32
PROVIDERS: ADMIT Family Medicine; ATTEND Family Medicine
DX: A41.9 Sepsis, unspecified organism (principal); G93.41 Metabolic encephalopathy; N17.9 Acute kidney failure, unspecified; I45.2 Bifascicular block; G30.9 Alzheimer's disease, unspecified; F02.80 Dementia in other diseases classified elsewhere, unspecified severity, without behavioral disturbance, psychotic disturbance, mood disturbance, and anxiety; M10.9 Gout, unspecified; E11.22 Type 2 diabetes mellitus with diabetic chronic kidney disease; E78.5 Hyperlipidemia, unspecified; N40.0 Benign prostatic hyperplasia without lower urinary tract symptoms; Z90.79 Acquired absence of other genital organ(s); Z91.041 Radiographic dye allergy status; Z79.84 Long term (current) use of oral hypoglycemic drugs; Z79.82 Long term (current) use of aspirin; Z87.891 Personal history of nicotine dependence; I12.9 Hypertensive chronic kidney disease with stage 1 through stage 4 chronic kidney disease, or unspecified chronic kidney disease; N18.2 Chronic kidney disease, stage 2 (mild); M17.11 Unilateral primary osteoarthritis, right knee; R74.8 Abnormal levels of other serum enzymes; F41.9 Anxiety disorder, unspecified
CPT/HCPCS: 36415; 36416; 71010; 80048; 80053; 80061; 80202; 82553; 83605; 84145; 84484; 84550; 85025; 85060; 85652; 86140; 87040; 87070; 87086; 87205; 89051; 89060; 93005; 94760; A4216; G8978-GP-CM; G8979-GP-CL; G8987-GO-CL; G8988-GO-CJ; G8996-GN-CK; G8997-GN-CJ; J1650; J2001; J2543; J3370; J7050

== ENCOUNTER 2020-09-21 00:49 | Emergency (ER) | payer MEDICARE, MEDICAID ==
[2020-09-21 02:15] LABS: #Basophils 0.1 thou/uL (0.0-0.2); #Eosinphils 0.2 thou/uL (0.0-0.7); #Lymphocytes 2.3 thou/uL (1.20-3.40); #Monocytes 0.9 thou/uL (0.11-0.59); #Neutrophils 3.9 thou/uL (1.40-6.50); %Basophils 1.1 % (0.0-1.0); %Eosinophils 2.5 % (0.0-10.0); %Lymphocytes 31.3 % (21.0-51.0); %Monocytes 11.8 % (0.0-10.0); %Neutrophils 53.3 % (42.0-75.0); Hemoglobin 13.9 g/dL (14.0-18.0); Mean Corpuscular Hemoglobin 26.9 pg (27.0-31.0); Mean Platelet Volume 7.7 fL (7.4-10.4); Platelet Count 260 thou/uL (130-400); RBC Distribution Width 14.6 % (11.5-14.5); Red Blood Cell (RBC) Count 5.16 mill/uL (4.70-6.10); White Blood Cell (WBC) Count 7.4 thou/uL (4.8-10.8)
[2020-09-21 02:37] LABS: ALT (SGPT) 33 U/L (8-55); AST (SGOT) 19 U/L (5-34); Albumin 3.7 g/dL (3.4-4.8); Alkaline Phosphatase 93 U/L (40-110); Anion Gap 13 mmol/L (10-20); BUN (Urea Nitrogen) 24 mg/dL (8.4-25.7); Bilirubin, Total 0.2 mg/dL (0.2-1.2); Calc. Creatinine Clearance 0 mL/min (70-130); Calcium 9.2 mg/dL (7.8-10.44); Carbon Dioxide 25 mmol/L (23-31); Chloride 111 mmol/L (98-107); Globulin 3.2 g/dL (2.4-3.5); Glucose 85 mg/dL (83-110); Potassium 4.4 mmol/L (3.5-5.1); Protein, Total 6.9 g/dL (5.8-8.1); Sodium 145 mmol/L (136-145)
[2020-09-21 02:53] LABS: Bilirubin Negative (Negative); Blood, Urine Negative (Negative); Clarity Clear (Clear); Glucose, Urine (Dipstick) Normal (Negative); Ketone, Urine Negative (Negative); Leukocyte Negative Leu/uL (Negative); Nitrite Negative (Negative); Protein, Urine (Dipstick) Negative (Neg-Trace); Urobilinogen Normal mg/dL (Less than 2); pH, Urine 5.5 (5.0-9.0)
--- NOTE | 2020-09-21 07:41 | CT ---
PRELIMINARY REPORT/DIRECT RADIOLOGY/EMERGENCY AFTER HOURS PROCEDURE: EXAM: CT Head Without Intravenous Contrast. CLINICAL HISTORY: AMS TECHNIQUE: Axial computed tomography images of the head/brain without intravenous contrast. COMPARISON: CT\SR - CT BRAIN WO CON - 05/18/2017 02:56 AM CDT FINDINGS: BRAIN: No acute intraparenchymal hemorrhage. No mass lesion. No CT evidence for acute territorial inf arct. No midline shift or extra-axial collection. Diffuse cerebral and cerebellar atrophy, slightly progressed. There are subcortical and deep white matter hypodensities which are nonspecific but which statistically most likely reflect changes of chronic small vessel ischemic disease, slightly progressed. ORBITS: The orbits are unremarkable. SINUSES AND MASTOIDS: The paranasal sinuses and mastoid air cells are unremarkable. SOFT TISSUES: No significant facial or scalp soft tissue swelling evident. No radiopaque foreign body is seen. BONES: No acute skull fracture. IMPRESSION: 1. No evidence of acute intracranial abnormality. 2. Diffuse cerebral and cerebellar atrophy, slightly progressed. 3. There are subcortical and deep white matter hypodensities which are nonspecific but which statisti raquel most likely reflect changes of chronic small vessel ischemic disease, slightly progressed. ELECTRONICALLY SIGNED BY: Benigno Mg MD Sep 21, 2020 1:43:23 AM SITE TECHNICIAN FINAL REPORT HEAD CT WITHOUT CONTRAST: DATE: 09/21/2020. COMPARISON: 06/04/2017. HISTORY: Altered mental status. FINDINGS: I agree with the preliminary report. The visualized paranasal sinuses and mastoid air cells are well- aerated. There is no displaced calvarial fracture. There is moderate diffuse cerebral volume loss with associated prominence of the CSF containing spaces. Periventricular, deep, and subcortical white matter hypodensity noted, evidence of small vessel disease. No intracranial hemorrhage, midline shift, or mass effect. IMPRESSION: No acute findings.. Transcribed Date/Time: 09/21/2020 8:03 AM
== END 2020-09-21 03:40 | disposition home or self-care (01) ==
LOC: ERS 00:49
DX: R41.82 Altered mental status, unspecified (principal); F91.9 Conduct disorder, unspecified; M10.9 Gout, unspecified; E11.9 Type 2 diabetes mellitus without complications; I10 Essential (primary) hypertension; E78.00 Pure hypercholesterolemia, unspecified; Z87.891 Personal history of nicotine dependence
CPT/HCPCS: 36415; 51701; 70450; 80053; 81003; 85025; 93005

== ENCOUNTER 2020-09-24 23:18 | Inpatient (IN) | payer MEDICARE, MEDICAID ==
[2020-09-25] MEDS ORDERED: Senokot S 8.6-50 MG TAB PO PRN (00:36)
[2020-09-25] MEDS ORDERED: Acetaminophen 325 MG TAB PO PRN (00:36)
[2020-09-25] MEDS ORDERED: Ondansetron ODT 4 MG TAB PO PRN (00:36)
[2020-09-25] MEDS ORDERED: Dextrose 5% in Water 1,000 ML IV PRN (00:43)
[2020-09-25] MEDS ORDERED: Insulin Regular 300 UNITS/3 ML VIAL SC PRN (00:43)
[2020-09-25] MEDS ORDERED: HumaLOG 300 UNITS/3 ML VIAL SC PRN (00:43)
[2020-09-25] MEDS ORDERED: Dextrose 50% Abboject 50 ML SYRINGE SLOW IVP PRN (00:43)
--- NOTE | 2020-09-25 00:56 | PDOC.HHP ---
Hospitalist HPI - History of Present Illness AMS History of Present Illness: The majority of the H&P was taken from the ER record, [facility] records and nursing notes due to the patient's history of Alzheimer's dementia. The patient is an 80-year-old male who is a resident of [facility] that presents to the emergency department via EMS as a transfer from [place] emergency department for the above complaint. Per ER documentation, the patient became "unresponsive" and hypoxic at the [facility]. Therefore, EMS was called. Patient was brought to [place] emergency department for further evaluation. At [place] ER, the patient presented febrile with a temperature of 100.6F with normal BP, HR, RR and SPO2 saturation. Lactic acid was 2.2, WBC is 19.9 and UA consistent with urinary tract infection. The patient was treated with 2 L normal saline, Levaquin, cefepime and vancomycin IV piggyback and was transferred to our hospital with a diagnosis of sepsis likely from a urinary tract infection. ED Course: [place] ER: T 100.6, NL BP, HR, RR, SPO2. EKG normal sinus rhythm, RBBB Initial troponin indeterminate, BNP 60.8, DD 0.55 CXR borderline heart size, no acute process LA 2.2, WBC 19.9 BUN 28, creatinine 1.88 UA 3+ bacteria, leukocytes, blood SARS influenza negative Medications: 2 L normal saline Levaquin 750 mg IVPB Cefepime 2 g IVPB Vancomycin 2 g IVPB Hospitalist ROS - Review of Systems ROS unobtainable: due to mental status All other systems reviewed; all pertinent +/- noted in HPI/Subj - Medication Medications: 1. Lisinopril 20 mg p.o. daily 2. Hydrochlorothiazide 25 mg p.o. Monday 3. Calcium chloride 20 mEq p.o. Monday 4. Amlodipine 10 mg p.o. daily 5. Atorvastatin 20 mg p.o. daily 6. Metformin 500 mg p.o. daily 7. Tramadol 50 mg p.o. as needed pain 8. Tylenol 650 mg p.o. as needed fever pain 9. Aricept 10 mg p.o. daily 10. Exelon patch 9.5 mg TD daily 11. Latanoprost unknown Allergies: Iodine and iodine-containing products 09/25/20 00:36 Resuscitation Status Routine Co-Sign Provider: Resuscitation Status: FULL: Full Resuscitation Discussed with: Confrimed by [facility] staff Hospitalist History - Past Medical History Cardiac: reports: HTN, Hyperlipidemia HEAD SHIPPER: reports: Dementia Psych: reports: Anxiety Renal/: reports: Chronic renal insuff (Stage III) Endocrine: reports: Diabetes (Type II) - Past Surgical History Past Surgical History: reports: TURP (Status post prostatectomy) - Family History Other Family History: Noncontributory to this case. - Social History Smoking Status: Former smoker (Quit greater than 10 years ago) Alcohol: reports: None Drugs: reports: none Living Situation: Group Home Occupation: Does not work - Exam General Appearance: NAD, awake alert. negative: ill appearing General - other findings: Appears comfortable resting on stretcher Eye: PERRL, anicteric sclera ENT: normocephalic atraumatic, dry oral mucosa Neck: supple, no lymphadenopathy Heart: RRR, no murmur, no gallops, no rubs, normal peripheral pulses Respiratory: CTAB, no wheezes, no rales, no ronchi, normal chest expansion, no tachypnea Gastrointestinal: soft, non-tender, normal bowel sounds, no guarding, no rigidity Gastrointestinal - other findings: No rebound tenderness, palpable fullness mid pelvic region Extremities: no cyanosis, no edema Skin: no rashes Neurological: no focal deficits Psychiatric: flat affect Psychiatric - other findings: Alert, oriented to self, follows commands, answers questions yes/no Hospitalist Results - Labs Lab results: Sodium 144, potassium 5.0, chloride 109, CO2 24, BUN 28, creatinine 1.88, glucose 127, GFR 42 LFTs unremarkable WBC is 19.9, hemoglobin 13.2, hematocrit 42.2, platelets 251 BNP 60.8, DD 0.55 UA blood, leukocytes, 3+ bacteria, squamous epithelial SARS and influenza negative - Radiology Interpretation CT scan - head Status: pending CT scan - chest Status: pending Hospitalist H&P A/P - Problem (1) Sepsis Code(s): A41.9 - SEPSIS, UNSPECIFIED ORGANISM Status: Acute (2) AMS (altered mental status) Code(s): R41.82 - ALTERED MENTAL STATUS, UNSPECIFIED Status: Acute (3) Dehydration Code(s): E86.0 - DEHYDRATION Status: Acute (4) HTN (hypertension) Code(s): I10 - ESSENTIAL (PRIMARY) HYPERTENSION Status: Chronic (5) DM2 (diabetes mellitus, type 2) Status: Chronic Qualifiers: Diabetes mellitus lobsterman insulin use: without lobsterman use (6) Glaucoma Code(s): H40.9 - UNSPECIFIED GLAUCOMA Status: Chronic (7) Alzheimer's dementia Code(s): G30.9 - ALZHEIMER'S DISEASE, UNSPECIFIED; F02.80 - DEMENTIA IN OTH DISEASES CLASSD ELSWHR W/O BEHAVRL DISTURB Status: Chronic - Plan Plan: A [facility] resident with history of dementia diabetes presents for altered mental status and hypoxia. #Sepsis Presented T 100.6 F, WBC 19.9, LA 2.2 UA 3+ bacteria, leukocytes, with squamous epithelial cells CXR no acute process Suspected urinary source Received Levaquin, cefepime, vancomycin, 2L NS in ER Start Zosyn. Repeat lactic acid. Blood/urine CX pending #AMS Documented episode unresponsive and hypoxic at [place]. A: NAD, 98% RA Influenza and SARS negative. Order stat CT head and chest. #Dehydration BUN 28, creatinine 1.88 Received 2L NS in ER. Recheck level in a.m. #HTN Presented normotensive. Takes lisinopril, HCTZ, amlodipine at home. Restart lisinopril and amlodipine. Hold HCTZ for now. #DM2 Presented BG 127 Takes metformin at home. Hold metformin. Start moderate ISS Accu-Cheks ACH S. #Glaucoma Takes unknown dosing latanoprost drops. Restart latanoprost when reconciled by nursing #Alzheimer's dementia Unknown baseline. Upon assessment, alert, follows commands, answers questions yes/no appro priately. Oriented to self. Takes Aricept and Exelon patch at home. Restart home medications Ranexa by nursing. SCDs for DVT prophylaxis. No GI prophylaxis. CODE STATUS is full code, confirmed by [facility]. Discussed the case with attending physician, Dr. Pérez, who agrees with plan of care.
[2020-09-25 01:19] LABS: Lactic Acid 1.5 mmol/L (0.5-2.2)
[2020-09-25] MEDS: Piperacillin/Tazobactam 3.375 GM in Sodium Chloride 0.9% 100 ML IVPB SCH ×4 (02:14→19:58)
[2020-09-25 04:53] VITALS: BMI 24.6
[2020-09-25 05:45] LABS: #Eosinphils 0.1 thou/uL (0.0-0.7); #Lymphocytes 1.8 thou/uL (1.20-3.40); #Monocytes 1.1 thou/uL (0.11-0.59); #Neutrophils 11.4 thou/uL (1.40-6.50); %Basophils 0.3 % (0.0-1.0); %Eosinophils 0.5 % (0.0-10.0); %Lymphocytes 12.3 % (21.0-51.0); %Monocytes 7.5 % (0.0-10.0); %Neutrophils 79.4 % (42.0-75.0); Hemoglobin 11.8 g/dL (14.0-18.0); Mean Corpuscular HGB CONC 30.2 g/dL (32.0-36.0); Mean Corpuscular Hemoglobin 25.2 pg (27.0-31.0); Mean Corpuscular Volume 83.5 fL (78.0-98.0); Mean Platelet Volume 8.1 fL (7.4-10.4); Platelet Count 230 thou/uL (130-400); RBC Distribution Width 14.6 % (11.5-14.5); Red Blood Cell (RBC) Count 4.71 mill/uL (4.70-6.10); White Blood Cell (WBC) Count 14.3 thou/uL (4.8-10.8)
[2020-09-25 06:13] LABS: Anion Gap 13 mmol/L (10-20); BUN (Urea Nitrogen) 21 mg/dL (8.4-25.7); Calc. Creatinine Clearance 45 mL/min (70-130); Calcium 8.9 mg/dL (7.8-10.44); Carbon Dioxide 24 mmol/L (23-31); Chloride 111 mmol/L (98-107); Glucose 101 mg/dL (83-110); Potassium 3.8 mmol/L (3.5-5.1); Sodium 144 mmol/L (136-145)
--- NOTE | 2020-09-25 07:14 | CT ---
PRELIMINARY REPORT/[facility]/EMERGENCY AFTER HOURS PROCEDURE EXAM: CT Head Without Intravenous Contrast. CLINICAL HISTORY: AMS TECHNIQUE: Axial computed tomography images of the head/brain without intravenous contrast. COMPARISON: CT\SR - CT BRAIN WO CON - 09/21/2020 01:27 AM HAND WORKER FINDINGS: BRAIN: Diffuse prominence of the sulci and ventricles suggesting cerebral atrophy. There are stable deep wh ite matter low attenuation changes suggesting small vessel disease. No acute intraparenchymal hemorrhage. No mass lesion. No CT evidence for acute territorial infarct. N o midline shift or extra-axial collection. VENTRICLES: No hydrocephalus. ORBITS: The orbits are unremarkable. SINUSES AND MASTOIDS: The paranasal sinuses and mastoid air cells are clear. SOFT TISSUES: No significant facial or scalp soft tissue swelling evident. No radiopaque foreign body is seen. BONES: No acute skull fracture. IMPRESSION: No acute intracranial abnormality. ELECTRONICALLY SIGNED BY: Juliane Akers MD Sep 25, 2020 12:48:51 AM HAND WORKER This report is intended for review by the ordering physician only, in accordance of law. If you recei ve this report in error, please call [facility] at [phone]. FINAL REPORT Exam: Head CT without contrast HISTORY: Altered mental status COMPARISON: 09/21/2020 FINDINGS: Hemorrhage: No intraparenchymal hemorrhage or extra-axial hematoma. Brain parenchyma: Cortical reynaga-white matter differentiation is preserved. No mass effect or midline shift. Basilar cisterns are patent. Ventricular system: Ventricles and sulci are patent and symmetric. Calvarium: Intact. Sinuses and mastoid air cells: Adequate aeration. IMPRESSION: 1. This report is in agreement with initial report by [facility]. 2. No acute intracranial process. Transcribed Date/Time: 09/25/2020 7:17 AM
--- NOTE | 2020-09-25 08:35 | PDOC.HOSPP ---
- Subjective Encounter Date: 09/25/20 Encounter Time: 10:00 non-verbal Subjective: Patient remains somnolent. He is not arousable and is not vocalizing or following any commands. - Objective Vital Signs & Weight: Vital Signs (12 hours) Temp Pulse Resp BP Pulse Ox 09/25/20 04:07 98.5 F 76 18 153/70 H 99 09/25/20 00:58 98.6 F 71 18 157/71 H 100 Weight Weight 148 lb 1.6 oz Result Diagrams: 09/25/20 05:07 09/25/20 05:07 Additional Labs: Accuchecks 09/25/20 05:42 POC Glucose 90 Hospitalist ROS - Review of Systems ROS unobtainable: due to mental status - Medication Medications: Active Medications Generic Name Dose Route Start Last Admin Trade Name Freq PRN Reason Stop Dose Admin Piperacillin Sod/Tazobactam 100 mls @ 200 mls/hr 09/25/20 02:00 09/25/20 02:14 Sod 3.375 gm/ Sodium Chloride IVPB 100 mls 0200,0800,1400,2000 ALTAGRACIA Administration - Exam General Appearance: NAD General - other findings: Somnolent ENT: moist mucosa Heart: RRR, no murmur, no gallops, no rubs Respiratory: CTAB, no wheezes, no rales, no ronchi Gastrointestinal: soft, non-tender, non-distended, normal bowel sounds Extremities: no edema Psychiatric: somnolent Hosp A/P - Plan A [facility] with history of dementia diabetes presents for altered mental status and hypoxia. #Sepsis Presented T 100.6 F, WBC 19.9, LA 2.2 UA 3+ bacteria, leukocytes, with squamous epithelial cells CXR no acute process Suspected urinary source Received Levaquin, cefepime, vancomycin, 2L NS in ER Starting Zosyn. Repeat lactic acid negative Blood/urine CX pending #AMS Documented episode unresponsive and hypoxic at [place]. A: NAD, 98% RA Influenza and Covid-[address] head negative CT chest pending #Dehydration BUN 28, creatinine 1.88 Received 2L NS in ER. creatinine normalized this morning #HTN Presented normotensive. Takes lisinopril, HCTZ, amlodipine at home. Restart lisinopril and amlodipine. Hold HCTZ for now. #DM2 Presented BG 127 Takes metformin at home. Hold metformin. Start moderate ISS Accu-Cheks ACH S. #Glaucoma Takes unknown dosing latanoprost drops. Restart latanoprost when reconciled by nursing #Alzheimer's dementia Unknown baseline. Upon initial assessment, alert, follows commands, answers questions yes/no appropriately. Oriented to self. Today he is somnolent and not responsive. Takes Aricept and Exelon patch at home. Restart home medications Ranexa by nursing. SCDs for DVT prophylaxis. No GI prophylaxis. CODE STATUS is full code, confirmed by [facility].
[2020-09-25] MEDS ORDERED: Loperamide HCl 2 MG CAP PO PRN (08:36)
[2020-09-25] MEDS ORDERED: traMADol HCl 50 MG TAB PO PRN (08:38)
[2020-09-25] MEDS ORDERED: Non-Formulary Item 1 EACH (Ascorbic Acid [Vitamin C] 500 MG Capsule) PO SCH (09:00)
[2020-09-25] MEDS ORDERED: Rivastigmine 9.5mg/24 Hour PATCH TD SCH (09:00)
[2020-09-25] MEDS ORDERED: QUINIDINE PO SCH ×2 (09:00)
[2020-09-25] MEDS ORDERED: DEXTROMETHORPHAN HBR PO SCH ×2 (09:00)
--- NOTE | 2020-09-25 09:21 | CT ---
PRELIMINARY REPORT/[facility]/EMERGENCY AFTER HOURS PROCEDURE: EXAM: CT Chest Without Intravenous Contrast. CLINICAL HISTORY: NO PREVIOUS // SCANNED WITHOUT CONTRAST DUE TO PT HAVING AN IODINE ALLERGY.// Pt transferred from [facility] ED for sepsis and hypoxia. Pt was sent there from [place] for hypoxia, hypotension, and AMS . He was febrile on arrival to [facility], but VS were otherwise stable. He was not hypoxic there TECHNIQUE: Axial computed tomography images of the chest without intravenous contrast. COMPARISON: CT\SR - CT BRAIN WO CON - 09/21/2020 01:27 AM EXHIBIT DESIGNER FINDINGS: LUNGS: Lungs show paraseptal and centrilobular emphysema. There is dependent atelectasis. No acute pulmonary process identified. PLEURAL SPACES: No pleural effusion. No pneumothorax. HEART AND MEDIASTINUM: Heart is enlarged. There are atherosclerotic calcifications in the coronary arteries. Atherosclerotic changes are noted in the aorta without evidence for aneurysm. Left thyroid gland is enlarged at 2.9 x 3.7 cm and heterogeneous LYMPH NODES: No lymphadenopathy. CHEST WALL AND UPPER ABDOMEN: No acute abdominal process identified. There is right nephrolithiasis. BONES: Skeleton is diffusely osteopenic. No acute fracture or bone destruction. IMPRESSION: 1. No acute pulmonary process identified 2. See body of report for significant nonemergent findings. ELECTRONICALLY SIGNED BY: Juliane Akers MD Sep 25, 2020 12:53:19 AM EXHIBIT DESIGNER This report is intended for review by the ordering physician only, in accordance of law. If you recei ve this report in error, please call [facility] at [phone]. FINAL REPORT EMERGENT AFTER HOURS CT OF THE CHEST WITHOUT CONTRAST: FINDINGS/IMPRESSION: I agree with the findings and impression given in the preliminary report per [facility] physici an. 1. No evidence of acute intrathoracic abnormality. 2. Nonobstructing right kidney stone. 3. Nonemergent thyroid hypodensity should be further evaluated with a nonemergent outpatient thyroid ultrasound. POS: IMTIAZ
[2020-09-25] MEDS: Allopurinol 100 MG TAB PO SCH (09:45)
[2020-09-25] MEDS: Lisinopril 20 MG TAB PO SCH (09:45)
[2020-09-25] MEDS: Atorvastatin Calcium 40 MG TAB PO SCH (09:45)
[2020-09-25] MEDS: Metoprolol Tartrate 50 MG TAB PO SCH ×2 (09:46→20:02)
[2020-09-25] MEDS: Ascorbic Acid 500 mg Chewable Tablet PO SCH ×2 (09:46→20:02)
[2020-09-25] MEDS: Dorzolamide HCl 2% Ophth Soln 10 ml Bottle EA EYE SCH ×2 (12:54→20:02)
[2020-09-25] MEDS: Melatonin 3 MG TAB PO SCH (20:02)
[2020-09-25] MEDS: Donepezil HCl 10 MG TAB PO SCH (20:02)
[2020-09-25] MEDS: Latanoprost 0.005% Ophth Soln 2.5 ml Bottle EA EYE SCH (20:12)
[2020-09-25] MEDS ORDERED: Non-Formulary Item 1 EACH (Melatonin [Melatonin] 1 MG Tablet) PO SCH (21:00)
[2020-09-25] MEDS ORDERED: Non-Formulary Item 1 EACH (Latanoprost/Pf [Latanoprost 0.005% Eye Drop] 7.5 ML Drops) EA EYE SCH (21:00)
[2020-09-25] MEDS ORDERED: TEMAZEPAM 7.5 MG PO SCH ×2 (21:00)
[2020-09-26] MEDS: Piperacillin/Tazobactam 3.375 GM in Sodium Chloride 0.9% 100 ML IVPB SCH ×4 (02:17→20:09)
--- NOTE | 2020-09-26 07:47 | PDOC.HOSPP ---
- Subjective Encounter Date: 09/26/20 Encounter Time: 10:10 Subjective: Patient without change overnight. He would not open his eyes for me this morning but did respond to questions. Denied any complaints. Could not answer orientation questions. - Objective Vital Signs & Weight: Vital Signs (12 hours) Temp Pulse Resp BP Pulse Ox 09/26/20 07:13 98.0 F 52 L 18 176/71 H 98 09/26/20 03:33 98.0 F 54 L 18 153/71 H 99 09/26/20 00:34 133/51 L 09/25/20 23:37 97.9 F 62 18 171/68 H 96 Weight Weight 148 lb 1.6 oz I&O: 09/25/20 09/26/20 09/27/20 06:59 06:59 06:59 Intake Total 1130 Balance 1130 Result Diagrams: 09/25/20 05:07 09/25/20 05:07 Additional Labs: Accuchecks 09/26/20 09/25/20 09/25/20 05:57 21:22 15:21 POC Glucose 97 98 89 09/25/20 11:20 POC Glucose 153 H Hospitalist ROS - Review of Systems ROS unobtainable: due to mental status - Medication Medications: Active Medications Generic Name Dose Route Start Last Admin Trade Name Sasha PRN Reason Stop Dose Admin Allopurinol 100 mg 09/25/20 09:00 09/25/20 09:45 Allopurinol 100 Mg Tab PO 100 mg DAILY ALTAGRACIA Administration Ascorbic Acid 500 mg 09/25/20 09:00 09/25/20 20:02 Ascorbic Acid 500 Mg Chewable Tablet PO 500 mg BID ALTAGRACIA Administration Atorvastatin Calcium 40 mg 09/25/20 09:00 09/25/20 09:45 Atorvastatin Calcium 40 Mg Tab PO 40 mg DAILY ALTAGRACIA Administration Donepezil HCl 10 mg 09/25/20 21:00 09/25/20 20:02 Donepezil Hcl 10 Mg Tab PO 10 mg HS ALTAGRACIA Administration Dorzolamide HCl 1 drop 09/25/20 09:00 09/25/20 20:02 Dorzolamide Hcl 2% Ophth Soln 10 Ml Bottle EA EYE 1 drop BID ALTAGRACIA Administration Piperacillin Sod/Tazobactam 100 mls @ 200 mls/hr 09/25/20 02:00 09/26/20 02:17 Sod 3.375 gm/ Sodium Chloride IVPB 100 mls 0200,0800,1400,2000 ALTAGRACIA Administration Insulin Human Lispro 0 units 09/25/20 00:43 09/25/20 12:54 Humalog 300 Units/3 Ml Vial SC 2 units .MODERATE SLIDING SC PRN Administration Moderate Correctional Scale Latanoprost 1 drop 09/25/20 21:00 09/25/20 20:12 Latanoprost 0.005% Ophth Soln 2.5 Ml Bottle EA EYE 1 drop HS ALTAGRACIA Administration Lisinopril 20 mg 09/25/20 09:00 09/25/20 09:45 Lisinopril 20 Mg Tab PO 20 mg DAILY ALTAGRACIA Administration Melatonin 3 mg 09/25/20 21:00 09/25/20 20:02 Melatonin 3 Mg Tab PO 3 mg HS ALTAGRACIA Administration Memantine 10 mg 09/25/20 09:00 09/25/20 09:46 Memantine Hcl 10 Mg Tab PO 10 mg DAILY ALTAGRACIA Administration Metoprolol Tartrate 50 mg 09/25/20 09:00 09/25/20 20:02 Metoprolol Tartrate 50 Mg Tab PO 50 mg BID ALTAGRACIA Administration - Exam General Appearance: NAD General - other findings: Sleeping but arousable, will not open eyes ENT: moist mucosa Heart: RRR, no murmur, no gallops, no rubs Respiratory: CTAB, no wheezes, no rales, no ronchi Gastrointestinal: soft, non-tender, non-distended, normal bowel sounds Extremities: no edema Psychiatric: oriented to person, lethargic. negative: oriented to place, oriented to time Hosp A/P - Plan A long term resident with history of dementia diabetes presents for altered mental status and hypoxia. #Sepsis Presented T 100.6 F, WBC 19.9, LA 2.2 UA 3+ bacteria, leukocytes, with squamous epithelial cells CXR no acute process Suspected urinary source Received Levaquin, cefepime, vancomycin, 2L NS in ER Started Zosyn. Repeat lactic acid negative Blood/urine CX pending, no growth to date #AMS Documented episode unresponsive and hypoxic at [place]. A: NAD, 98% RA Influenza and Covid-[address] head negative CT chest negative #Dehydration BUN 28, creatinine 1.88 --> 1.28 after fluids Received 2L NS in ER. creatinine normalized #HTN Presented normotensive. Takes lisinopril, HCTZ, amlodipine at home. Restart lisinopril and amlodipine. Hold HCTZ for now. #DM2 Presented BG 127 Takes metformin at home. Hold metformin. Start moderate ISS Accu-Cheks ACH S. #Glaucoma Takes unknown dosing latanoprost drops. Restart latanoprost when reconciled by nursing #Alzheimer's dementia Unknown baseline. Upon initial assessment, alert, follows commands, answers questions yes/no appropriately. Oriented to self. Takes Aricept and Exelon patch at home. Restart home medications, Ranexa by nursing. SCDs for DVT prophylaxis. No GI prophylaxis. CODE STATUS is full code, confirmed by [facility] long term. EXAM: CT Chest Without Intravenous Contrast. FINDINGS/IMPRESSION: I agree with the findings and impression given in the preliminary report per [facility] physician. 1. No evidence of acute intrathoracic abnormality. 2. Nonobstructing right kidney stone. 3. Nonemergent thyroid hypodensity should be further evaluated with a nonemergent outpatient thyroid ultrasound.
[2020-09-26] MEDS: Timolol 0.5% Ophth Soln 5 ml Bottle EA EYE SCH ×2 (08:49→20:08)
[2020-09-26] MEDS: Dorzolamide HCl 2% Ophth Soln 10 ml Bottle EA EYE SCH ×2 (08:49→20:13)
[2020-09-26] MEDS: Lisinopril 20 MG TAB PO SCH (08:50)
[2020-09-26] MEDS: Rivastigmine 9.5mg/24 Hour PATCH TD SCH ×2 (08:50→11:30)
[2020-09-26] MEDS: Atorvastatin Calcium 40 MG TAB PO SCH (08:50)
[2020-09-26] MEDS: Allopurinol 100 MG TAB PO SCH (08:50)
[2020-09-26] MEDS: Ascorbic Acid 500 mg Chewable Tablet PO SCH ×2 (08:50→20:11)
[2020-09-26] MEDS: Metoprolol Tartrate 50 MG TAB PO SCH ×2 (08:50→20:11)
[2020-09-26] MEDS: Amlodipine 10 MG TAB PO PRN (14:08)
[2020-09-26] MEDS: Melatonin 3 MG TAB PO SCH (20:11)
[2020-09-26] MEDS: Donepezil HCl 10 MG TAB PO SCH (20:11)
[2020-09-26] MEDS: Latanoprost 0.005% Ophth Soln 2.5 ml Bottle EA EYE SCH (20:20)
[2020-09-27] MEDS: Piperacillin/Tazobactam 3.375 GM in Sodium Chloride 0.9% 100 ML IVPB SCH ×3 (01:04→14:44)
[2020-09-27 06:37] LABS: #Eosinphils 0.2 thou/uL (0.0-0.7); #Lymphocytes 1.5 thou/uL (1.20-3.40); #Monocytes 0.7 thou/uL (0.11-0.59); #Neutrophils 5.3 thou/uL (1.40-6.50); %Basophils 0.3 % (0.0-1.0); %Eosinophils 2.3 % (0.0-10.0); %Lymphocytes 19.4 % (21.0-51.0); %Monocytes 8.8 % (0.0-10.0); %Neutrophils 69.1 % (42.0-75.0); Hemoglobin 11.9 g/dL (14.0-18.0); Mean Corpuscular HGB CONC 32.1 g/dL (32.0-36.0); Mean Corpuscular Hemoglobin 26.6 pg (27.0-31.0); Mean Corpuscular Volume 82.8 fL (78.0-98.0); Mean Platelet Volume 7.6 fL (7.4-10.4); Platelet Count 243 thou/uL (130-400); RBC Distribution Width 14.4 % (11.5-14.5); Red Blood Cell (RBC) Count 4.47 mill/uL (4.70-6.10); White Blood Cell (WBC) Count 7.7 thou/uL (4.8-10.8)
[2020-09-27 06:57] LABS: Anion Gap 11 mmol/L (10-20); BUN (Urea Nitrogen) 10 mg/dL (8.4-25.7); Calc. Creatinine Clearance 58 mL/min (70-130); Carbon Dioxide 24 mmol/L (23-31); Chloride 110 mmol/L (98-107); Glucose 108 mg/dL (83-110); Potassium 3.6 mmol/L (3.5-5.1); Sodium 141 mmol/L (136-145)
[2020-09-27] MEDS: Rivastigmine 9.5mg/24 Hour PATCH TD SCH (09:00)
[2020-09-27] MEDS: Metoprolol Tartrate 50 MG TAB PO SCH ×2 (09:00→20:51)
[2020-09-27] MEDS: Atorvastatin Calcium 40 MG TAB PO SCH (09:00)
[2020-09-27] MEDS: Ascorbic Acid 500 mg Chewable Tablet PO SCH ×2 (09:00→20:51)
[2020-09-27] MEDS: Timolol 0.5% Ophth Soln 5 ml Bottle EA EYE SCH ×2 (09:01→20:50)
[2020-09-27] MEDS: Dorzolamide HCl 2% Ophth Soln 10 ml Bottle EA EYE SCH ×2 (09:01→20:51)
[2020-09-27] MEDS: Allopurinol 100 MG TAB PO SCH (09:01)
[2020-09-27] MEDS: Lisinopril 20 MG TAB PO SCH (09:01)
--- NOTE | 2020-09-27 15:56 | PDOC.HOSPP ---
- Subjective Encounter Date: 09/27/20 - Objective Vital Signs & Weight: Vital Signs (12 hours) Temp Pulse Resp BP Pulse Ox 09/27/20 11:30 97.8 F 54 L 14 160/73 H 98 09/27/20 07:20 97.8 F 55 L 14 166/71 H 97 09/27/20 04:00 97.7 F 60 16 165/69 H 97 Weight Weight 148 lb 1.6 oz I&O: 09/26/20 09/27/20 09/28/20 06:59 06:59 06:59 Intake Total 1130 1060 Balance 1130 1060 Result Diagrams: 09/27/20 06:16 09/27/20 06:16 Additional Labs: Accuchecks 09/27/20 09/26/20 05:06 23:20 POC Glucose 91 96 Hospitalist ROS - Review of Systems ROS unobtainable: due to mental status (pt sleepy but arousable says he feels ok and does not answer further not in distress) - Medication Medications: Active Medications Generic Name Dose Route Start Last Admin Trade Name Gerq PRN Reason Stop Dose Admin Allopurinol 100 mg 09/25/20 09:00 09/27/20 09:01 Allopurinol 100 Mg Tab PO 100 mg DAILY ALTAGRACIA Administration Amlodipine Besylate 10 mg 09/25/20 00:47 09/26/20 14:08 Amlodipine 10 Mg Tab PO 10 mg DAILY PRN Administration SBP GREATER THAN 160 Ascorbic Acid 500 mg 09/25/20 09:00 09/27/20 09:00 Ascorbic Acid 500 Mg Chewable Tablet PO 500 mg BID ALTAGRACIA Administration Atorvastatin Calcium 40 mg 09/25/20 09:00 09/27/20 09:00 Atorvastatin Calcium 40 Mg Tab PO 40 mg DAILY ALTAGRACIA Administration Donepezil HCl 10 mg 09/25/20 21:00 09/26/20 20:11 Donepezil Hcl 10 Mg Tab PO 10 mg HS ALTAGRACIA Administration Dorzolamide HCl 1 drop 09/25/20 09:00 09/27/20 09:01 Dorzolamide Hcl 2% Ophth Soln 10 Ml Bottle EA EYE 1 drop BID ALTAGRACIA Administration Piperacillin Sod/Tazobactam 100 mls @ 200 mls/hr 09/25/20 02:00 09/27/20 14:44 Sod 3.375 gm/ Sodium Chloride IVPB 100 mls 0200,0800,1400,2000 ALTAGRACIA Administration Insulin Human Lispro 0 units 09/25/20 00:43 09/25/20 12:54 Humalog 300 Units/3 Ml Vial SC 2 units .MODERATE SLIDING SC PRN Administration Moderate Correctional Scale Latanoprost 1 drop 09/25/20 21:00 09/26/20 20:20 Latanoprost 0.005% Ophth Soln 2.5 Ml Bottle EA EYE 1 drop HS ALTAGRACIA Administration Lisinopril 20 mg 09/25/20 09:00 09/27/20 09:01 Lisinopril 20 Mg Tab PO 20 mg DAILY ALTAGRACIA Administration Melatonin 3 mg 09/25/20 21:00 09/26/20 20:11 Melatonin 3 Mg Tab PO 3 mg HS ALTAGRACIA Administration Memantine 10 mg 09/25/20 09:00 09/27/20 09:00 Memantine Hcl 10 Mg Tab PO 10 mg DAILY ALTAGRACIA Administration Metoprolol Tartrate 50 mg 09/25/20 09:00 09/27/20 09:00 Metoprolol Tartrate 50 Mg Tab PO 50 mg BID ALTAGRACIA Administration Ondansetron HCl 4 mg 09/25/20 00:36 09/27/20 01:04 Ondansetron Odt 4 Mg Tab PO 4 mg Q6H PRN Administration Nausea/Vomiting Rivastigmine 9.5 mg 09/26/20 09:00 09/27/20 09:00 Rivastigmine 9.5mg/24 Hour Patch TD 9.5 mg DAILY ALTAGRACIA Administration Timolol Maleate 1 drop 09/26/20 09:00 09/27/20 09:01 Timolol 0.5% Ophth Soln 5 Ml Bottle EA EYE 1 drop BID ALTAGRACIA Administration - Exam General Appearance: ill appearing Eye: anicteric sclera ENT: normocephalic atraumatic Neck: supple Heart: no murmur Respiratory: no wheezes Gastrointestinal: soft Extremities: no cyanosis Skin: no lesions Neurological: cranial nerve grossly intact Musculoskeletal: normal tone Psychiatric: normal affect Hosp A/P - Plan A [facility] resident with history of dementia diabetes presents for altered mental status and hypoxia Sepsis due to UTI Ecoli Zosyn chanded to ceftrioxone Blood/urine CX neg Acute metabolic and toxic encephalaopthy possible due to sepsis and underlaying dementia Pt responsive to vocal command and able to swallow food Dehydration Currenlty stable HTN Continue to monitor bP Continue lisinopril and amlodipine. DM2 Continue to monitor Blood sugar and sliding scale Glaucoma Conitnue home eye drops Alzheimer's dementia Continue to monitor mental status Takes Aricept and Exelon patch at home. DVT prophylaxis with Lovenox ordered continue SCD CODE STATUS ifull code
[2020-09-27] MEDS ORDERED: cefTRIAXone\\ROCEPHIN 1 GM in Sodium Chloride 0.9% 100 ML IVPB SCH (16:00)
[2020-09-27] MEDS: Amlodipine 10 MG TAB PO PRN (16:18)
[2020-09-27] MEDS: Latanoprost 0.005% Ophth Soln 2.5 ml Bottle EA EYE SCH (20:51)
[2020-09-27] MEDS: Melatonin 3 MG TAB PO SCH (20:51)
[2020-09-27] MEDS: Donepezil HCl 10 MG TAB PO SCH (20:52)
[2020-09-28 06:20] LABS: #Eosinphils 0.2 thou/uL (0.0-0.7); #Lymphocytes 1.5 thou/uL (1.20-3.40); #Monocytes 0.5 thou/uL (0.11-0.59); #Neutrophils 4.8 thou/uL (1.40-6.50); %Basophils 0.6 % (0.0-1.0); %Eosinophils 2.7 % (0.0-10.0); %Lymphocytes 21.4 % (21.0-51.0); %Monocytes 7.5 % (0.0-10.0); %Neutrophils 67.7 % (42.0-75.0); Mean Corpuscular HGB CONC 32.1 g/dL (32.0-36.0); Mean Corpuscular Hemoglobin 26.5 pg (27.0-31.0); Mean Corpuscular Volume 82.7 fL (78.0-98.0); Mean Platelet Volume 7.3 fL (7.4-10.4); Platelet Count 257 thou/uL (130-400); RBC Distribution Width 14.3 % (11.5-14.5); Red Blood Cell (RBC) Count 4.52 mill/uL (4.70-6.10); White Blood Cell (WBC) Count 7.1 thou/uL (4.8-10.8)
[2020-09-28 06:38] LABS: Anion Gap 11 mmol/L (10-20); BUN (Urea Nitrogen) 8 mg/dL (8.4-25.7); Calc. Creatinine Clearance 67 mL/min (70-130); Calcium 8.6 mg/dL (7.8-10.44); Carbon Dioxide 26 mmol/L (23-31); Chloride 110 mmol/L (98-107); Glucose 98 mg/dL (83-110); Potassium 3.4 mmol/L (3.5-5.1); Sodium 144 mmol/L (136-145)
[2020-09-28] MEDS ORDERED: hydrALAZINE 20 MG/ML VIAL SLOW IVP PRN (07:26)
--- NOTE | 2020-09-28 07:41 | PDOC.HOSPP ---
- Subjective Encounter Date: 09/28/20 Encounter Time: 10:00 Subjective: Patient awake and alert. No complaints. He has pulled out his IV and is playing with it but no visible bleeding. He is alert and oriented x1 which is his baseline. - Objective Vital Signs & Weight: Vital Signs (12 hours) Temp Pulse Resp BP Pulse Ox 09/28/20 06:10 189/92 H 09/28/20 00:05 168/71 H 09/27/20 23:11 97.8 F 55 L 16 181/80 H 100 09/27/20 20:50 57 L 09/27/20 19:54 97.3 F L 57 L 14 188/74 H 92 L Weight Weight 148 lb 1.6 oz I&O: 09/27/20 09/28/20 09/29/20 06:59 06:59 06:59 Intake Total 1060 930 Balance 1060 930 Result Diagrams: 09/28/20 05:56 09/28/20 05:56 Additional Labs: Accuchecks 09/28/20 09/27/20 09/27/20 06:01 19:59 16:18 POC Glucose 91 103 H 144 H Hospitalist ROS - Review of Systems ROS unobtainable: due to mental status - Medication Medications: Active Medications Generic Name Dose Route Start Last Admin Trade Name Freq PRN Reason Stop Dose Admin Allopurinol 100 mg 09/25/20 09:00 09/27/20 09:01 Allopurinol 100 Mg Tab PO 100 mg DAILY ALTAGRACIA Administration Amlodipine Besylate 10 mg 09/25/20 00:47 09/27/20 16:18 Amlodipine 10 Mg Tab PO 10 mg DAILY PRN Administration SBP GREATER THAN 160 Ascorbic Acid 500 mg 09/25/20 09:00 09/27/20 20:51 Ascorbic Acid 500 Mg Chewable Tablet PO 500 mg BID ALTAGRACIA Administration Atorvastatin Calcium 40 mg 09/25/20 09:00 09/27/20 09:00 Atorvastatin Calcium 40 Mg Tab PO 40 mg DAILY ALTAGRACIA Administration Donepezil HCl 10 mg 09/25/20 21:00 09/27/20 20:52 Donepezil Hcl 10 Mg Tab PO 10 mg HS ALTAGRACIA Administration Dorzolamide HCl 1 drop 09/25/20 09:00 09/27/20 20:51 Dorzolamide Hcl 2% Ophth Soln 10 Ml Bottle EA EYE 1 drop BID ALTAGRACIA Administration Insulin Human Lispro 0 units 09/25/20 00:43 09/25/20 12:54 Humalog 300 Units/3 Ml Vial SC 2 units .MODERATE SLIDING SC PRN Administration Moderate Correctional Scale Latanoprost 1 drop 09/25/20 21:00 09/27/20 20:51 Latanoprost 0.005% Ophth Soln 2.5 Ml Bottle EA EYE 1 drop HS ALTAGRACIA Administration Lisinopril 20 mg 09/25/20 09:00 09/27/20 09:01 Lisinopril 20 Mg Tab PO 20 mg DAILY ALTAGRACIA Administration Melatonin 3 mg 09/25/20 21:00 09/27/20 20:51 Melatonin 3 Mg Tab PO 3 mg HS ALTAGRACIA Administration Memantine 10 mg 09/25/20 09:00 09/27/20 09:00 Memantine Hcl 10 Mg Tab PO 10 mg DAILY ALTAGRACIA Administration Metoprolol Tartrate 50 mg 09/25/20 09:00 09/27/20 20:51 Metoprolol Tartrate 50 Mg Tab PO 50 mg BID ALTAGRACIA Administration Ondansetron HCl 4 mg 09/25/20 00:36 09/27/20 01:04 Ondansetron Odt 4 Mg Tab PO 4 mg Q6H PRN Administration Nausea/Vomiting Rivastigmine 9.5 mg 09/26/20 09:00 09/27/20 09:00 Rivastigmine 9.5mg/24 Hour Patch TD 9.5 mg DAILY ALTAGRACIA Administration Timolol Maleate 1 drop 09/26/20 09:00 09/27/20 20:50 Timolol 0.5% Ophth Soln 5 Ml Bottle EA EYE 1 drop BID ALTAGRACIA Administration - Exam General Appearance: NAD, awake alert ENT: moist mucosa Heart: RRR, no murmur, no gallops, no rubs Respiratory: CTAB, no wheezes, no rales, no ronchi Gastrointestinal: soft, non-tender, non-distended, normal bowel sounds Extremities: no edema Psychiatric: normal affect, normal behavior, oriented to person. negative: oriented to place, oriented to time Hosp A/P - Plan A long term resident with history of dementia diabetes presents for altered mental status and hypoxia. #Sepsis-resolved Presented T 100.6 F, WBC 19.9, LA 2.2 UA 3+ bacteria, leukocytes, with squamous epithelial cells CXR no acute process UTI Received Levaquin, cefepime, vancomycin, 2L NS in ER Started Zosyn. Repeat lactic acid negative Urine culture with E. coli sensitive to cephalosporins and Bactrim, will change to po Bactrim for discharge #AMS-resolved Documented episode unresponsive and hypoxic at [place]. A: NAD, 98% RA Influenza and Covid-[address] head negative CT chest negative #Dehydration BUN 28, creatinine 1.88 --> 1.28 after fluids Received 2L NS in ER. creatinine now normalized #HTN Presented normotensive. Takes lisinopril, HCTZ, amlodipine at home. Restart lisinopril and amlodipine. Holding HCTZ for now, BP up today so can restart on discharge #DM2 Presented BG 127 Takes metformin at home. Hold metformin, can restart on d/c Started moderate ISS Accu-Cheks ACH S. #Glaucoma Takes unknown dosing latanoprost drops. Restart latanoprost when reconciled by nursing #Alzheimer's dementia Unknown baseline. Upon initial assessment, alert, follows commands, answers questions yes/no appropriately. Oriented to self. Takes Aricept and Exelon patch at home. Restart home medications, Ranexa by nursing. SCDs for DVT prophylaxis. No GI prophylaxis. CODE STATUS is full code, confirmed by [facility] long term. Disposition: Back to long term today. EXAM: CT Chest Without Intravenous Contrast. FINDINGS/IMPRESSION: I agree with the findings and impression given in the preliminary report per [facility] physician. 1. No evidence of acute intrathoracic abnormality. 2. Nonobstructing right kidney stone. 3. Nonemergent thyroid hypodensity should be further evaluated with a nonemergent outpatient thyroid ultrasound.
[2020-09-28] MEDS ORDERED: Potassium Chloride 20 MEQ TAB PO SCH (07:45)
[2020-09-28] MEDS: Timolol 0.5% Ophth Soln 5 ml Bottle EA EYE SCH (08:28)
[2020-09-28] MEDS: Atorvastatin Calcium 40 MG TAB PO SCH (08:29)
[2020-09-28] MEDS: Rivastigmine 9.5mg/24 Hour PATCH TD SCH (08:29)
[2020-09-28] MEDS: Metoprolol Tartrate 50 MG TAB PO SCH (08:29)
[2020-09-28] MEDS: Dorzolamide HCl 2% Ophth Soln 10 ml Bottle EA EYE SCH (08:29)
[2020-09-28] MEDS: Lisinopril 20 MG TAB PO SCH (08:30)
[2020-09-28] MEDS: Allopurinol 100 MG TAB PO SCH (08:30)
[2020-09-28] MEDS: Ascorbic Acid 500 mg Chewable Tablet PO SCH (08:30)
[2020-09-28] MEDS ORDERED: Enoxaparin Sodium 40 MG/0.4 ML SYRINGE SC SCH (09:00)
[2020-09-28] MEDS ORDERED: Sulfameth/Trimethoprim DS 800-160mg TAB PO SCH (09:00)
--- NOTE | 2020-09-28 12:36 | PDOC.DS.DS ---
Provider - Provider Date of Admission: 09/25/20 11:58 Date of Discharge: 09/28/20 Admitting Provider: Quentin Pérez MD Consultations: None Primary Care Physician: Jaime Jaimes MD Course - Hospital Course Hospital Course: Patient was admitted to the hospital from [facility] after he was noted to be decreased mental status and hypoxic. In the hospital patient was found to have a urinary tract infection. He was alert and oriented x1 throughout his hospitalization which is his baseline. He never had any hypoxia in the hospital. Patient grew back E. coli in his urine that was sensitive to Bactrim. He has clinically improved and he has been discharged back to his [facility]. Patient did have speech therapy evaluation during hospitalization and had his diet altered. Pertinent Studies: CT Chest Without Intravenous Contrast. FINDINGS/IMPRESSION: I agree with the findings and impression given in the preliminary report per [facility] physician. 1. No evidence of acute intrathoracic abnormality. 2. Nonobstructing right kidney stone. 3. Nonemergent thyroid hypodensity should be further evaluated with a nonemergent outpatient thyroid ultrasound. Resuscitation Status: 09/25/20 00:36 Resuscitation Status Routine Co-Sign Provider: Resuscitation Status: FULL: Full Resuscitation Discussed with: Confrimed by [facility] staff - Labs Lab Results: 09/28/20 05:56 09/28/20 05:56 Abnormal Lab Results - Last 48 hrs 09/27/20 06:16: Chloride 110 H 09/27/20 06:16: RBC 4.47 L, Hgb 11.9 L, Hct 37.0 L, MCH 26.6 L, Lymphocytes % 19.4 L, Monocytes # 0.7 H 09/28/20 05:56: Potassium 3.4 L, Chloride 110 H, BUN 8 L 09/28/20 05:56: RBC 4.52 L, Hgb 12.0 L, Hct 37.4 L, MCH 26.5 L, MPV 7.3 L - Physical Exam Vitals: Vital Signs (12 hours) Temp Pulse Resp BP BP Pulse Ox 09/28/20 09:20 162/67 H 09/28/20 08:30 182/71 H 98 09/28/20 08:28 51 L 09/28/20 08:27 51 L 09/28/20 07:25 97.4 F L 51 L 18 182/71 H 98 09/28/20 06:10 189/92 H Weight Weight 148 lb 1.6 oz Physical Exam: The patient was seen and examined on the day of discharge. Problem - Discharge Plan Assessment: E. coli urinary tract infection sensitive to Bactrim and cephalosporins. Plan of Treatment: We will discharge back to the [facility] on a course of Bactrim double str ength. - Time spent with Patient (mins): 32 Plan - Discharge Medications Home Medications: Medication Instructions Recorded Confirmed Type Atorvastatin Calcium [Lipitor] 40 mg PO DAILY 06/07/17 09/25/20 History Hydrochlorothiazide 25 mg PO DAILY 06/07/17 09/25/20 History Potassium Chloride [K-Dur] 20 mg PO DAILY 06/07/17 09/25/20 History metFORMIN [Glucophage] 500 mg PO DAILY 06/07/17 09/25/20 History Donepezil HCl [Aricept] 10 mg PO HS #30 tab 06/26/17 09/25/20 Rx Dorzolamide HCl [Trusopt 2% Ophth 1 drop EA EYE BID bot 06/26/17 09/25/20 Rx Soln] Memantine HCl [Namenda] 10 mg PO DAILY #30 tab 06/26/17 09/25/20 Rx Acetaminophen 650 mg PO Q6H PRN 09/25/20 09/25/20 History Allopurinol 100 mg PO DAILY 09/25/20 09/25/20 History Amlodipine [Norvasc] 10 mg PO DAILY 09/25/20 09/25/20 History Ascorbic Acid [Vitamin C] 500 mg PO BID 09/25/20 09/25/20 History Dextromethorphan Hbr/Quinidine 10 mg PO DAILY 09/25/20 09/25/20 History [Nuedexta] Latanoprost/Pf [Latanoprost 0.005% 1 drop EA EYE HS 09/25/20 09/25/20 History Eye Drop] Lisinopril [Zestril] 20 mg PO DAILY 09/25/20 09/25/20 History Loperamide HCl [Loperamide] 2 mg PO DAILY PRN 09/25/20 09/25/20 History Melatonin 2 tab PO HS 09/25/20 09/25/20 History Metoprolol Tartrate 50 mg PO BID 09/25/20 09/25/20 History Rivastigmine Patch [Exelon Patch] 1 patch TD DAILY 09/25/20 09/25/20 History Temazepam 7.5 mg PO HS 09/25/20 09/25/20 History Timolol Maleate [Istalol] 1 drop EA EYE BID 09/25/20 09/25/20 History traMADol HCl [Tramadol HCl] 50 mg PO Q6H PRN 09/25/20 09/25/20 History Sulfamethoxazole/Trimethoprim 1 tab PO BID tab 09/28/20 Rx [Bactrim DS] Allergies: Iodine and Iodide Containing Produc Allergy (Verified 09/25/20 01:30) Rash - Discharge Instructions Activity:: Activity as Tolerated Nourishment:: Diabetic Diet, Heart Healthy Diet (NDD-1 pureed, extra sauce/gravy, nectar thick liquids) Therapies:: Not Applicable Equipment/Supplies:: Not Applicable IV Therapy:: Not Applicable - Follow up Plan Referrals: Jaime Jaimes MD [Primary Care Provider] - Disposition: CUSTODIAL/ASSISTED LIVING Quality - Care Measures CORE MEASURES:: N/A
[2020-09-28 13:23] VITALS: BP 142/76; TEMP 98.2
== END 2020-09-28 14:21 | DRG 871 ==
LOC: ERS 23:18 → SURG B 23:59 → OBSVTOIN 09-25 11:58
PROVIDERS: ADMIT Student in an Organized Health Care Education/Training Program; ATTEND Emergency Medicine
DX: A41.51 Sepsis due to Escherichia coli [E. coli] (principal); G92 Toxic encephalopathy; N39.0 Urinary tract infection, site not specified; Z20.822 Contact with and (suspected) exposure to COVID-19; G30.9 Alzheimer's disease, unspecified; F02.80 Dementia in other diseases classified elsewhere, unspecified severity, without behavioral disturbance, psychotic disturbance, mood disturbance, and anxiety; E78.5 Hyperlipidemia, unspecified; F41.9 Anxiety disorder, unspecified; E11.22 Type 2 diabetes mellitus with diabetic chronic kidney disease; I12.9 Hypertensive chronic kidney disease with stage 1 through stage 4 chronic kidney disease, or unspecified chronic kidney disease; E86.0 Dehydration; M10.9 Gout, unspecified; E78.00 Pure hypercholesterolemia, unspecified; H40.9 Unspecified glaucoma; Z91.041 Radiographic dye allergy status; Z87.891 Personal history of nicotine dependence; Z79.899 Other long term (current) drug therapy; Z79.84 Long term (current) use of oral hypoglycemic drugs
CPT/HCPCS: 36415; 36416; 70450; 71250; 80048; 83605; 84484; 85025; 96365; 96366; G0378; J0360; J0696; J1650; J2543; J3490; Q0162

== ENCOUNTER 2020-10-18 14:20 | Inpatient (IN) | payer MEDICARE, OTHER ==
[2020-10-18 17:28] LABS: Actual Bicarbonate (HCO3a) 11.3 mEq/L (22-28); Base Excess (BEa) -14.2 mEq/L (-2.0 to +3.0); Calcium, Ionized (arterial) 1.29 mmol/L (1.12-1.30); Carboxyhemoglobin (COHb) 0.3 gm% (0.0-3.0); Hemoglobin (Hb) 12.6 g/dL (14.0-18.0); O2 Tension (PaO2), arterial 91.7 mmHg (> 60.0); Potassium - ABG Lab 3.48 mmol/L (3.70-5.30); pH, Arterial 7.26 (7.35-7.45)
[2020-10-18 17:32] LABS: CO2 Tension 25.9 mmHg (35.0-45.0)
[2020-10-18 17:33] LABS: ALV-art Gradient 25.655 mmHg (0-20); Puncture Site RBA
--- NOTE | 2020-10-18 17:37 | PDOC.HHP ---
Hospitalist HPI Severe hypernatremia History of Present Illness: Patient is a 80-year-old -Thai male with a past medical history of hypertension, type 2 diabetes mellitus, Alzheimer's dementia who is a direct admit from [facility] where he was seen for altered mental status. Work-up in the ER was concerning for severe hypernatremia with sodium of more than 175. Patient was transferred here for higher level of care. Of note, fingerstick glucose was inconsistent with BMP glucose levels with the showing 50 and 500, respectively. Patient arrived to this hospital slightly hypotensive with SBP in the mid 80s. He was obtunded with minimal response to noxious stimuli. However, he is protecting his airways. Satting 100% on room air. Fingerstick blood glucose is 172 on arrival. Staying in the ICU due to critical care high risk for decompensation. I called his NOK at [phone] (Selene Potter) for additional information. Apparently, patient was having trouble breathing since his the morning of admission, and that he required. He has been eating well, could not swallow his medications or food. ED Course: Course as per [facility] Alert and oriented x1 Severe dehydration, hypernatremia and renal failure Chest x-ray without acute cardiopulmonary findings Allergies/Adverse Reactions: Allergy/AdvReac Type Severity Reaction Status Date / Time Iodine and Iodide Containing Allergy Rash Verified 10/18/20 15:52 Produc Home Medications: Medication Instructions Recorded Confirmed Type Atorvastatin Calcium [Lipitor] 20 mg PO DAILY 06/07/17 10/18/20 History Hydrochlorothiazide 25 mg PO DAILY 06/07/17 10/18/20 History Potassium Chloride [K-Dur] 20 mg PO DAILY 06/07/17 10/18/20 History metFORMIN [Glucophage] 500 mg PO DAILY 06/07/17 10/18/20 History Donepezil HCl [Aricept] 10 mg PO HS #30 tab 06/26/17 10/18/20 Rx Dorzolamide HCl [Trusopt 2% Ophth 1 drop EA EYE BID bot 06/26/17 09/25/20 Rx Soln] Memantine HCl [Namenda] 10 mg PO DAILY #30 tab 06/26/17 10/18/20 Rx Acetaminophen 650 mg PO Q6H PRN 09/25/20 09/25/20 History Allopurinol 100 mg PO DAILY 09/25/20 10/18/20 History Amlodipine [Norvasc] 10 mg PO DAILY 09/25/20 10/18/20 History Ascorbic Acid [Vitamin C] 500 mg PO BID 09/25/20 10/18/20 History Dextromethorphan Hbr/Quinidine 20 mg PO DAILY 09/25/20 10/18/20 History [Nuedexta] Latanoprost/Pf [Latanoprost 0.005% 1 drop EA EYE HS 09/25/20 10/18/20 History Eye Drop] Lisinopril [Zestril] 20 mg PO DAILY 09/25/20 10/18/20 History Loperamide HCl [Loperamide] 2 mg PO DAILY PRN 09/25/20 09/25/20 History Melatonin 2 tab PO HS 09/25/20 10/18/20 History Metoprolol Tartrate 50 mg PO BID 09/25/20 09/25/20 History Rivastigmine Patch [Exelon Patch] 1 patch TD DAILY 09/25/20 10/18/20 History Temazepam 7.5 mg PO HS 09/25/20 10/18/20 History Timolol Maleate [Istalol] 1 drop EA EYE BID 09/25/20 10/18/20 History traMADol HCl [Tramadol HCl] 50 mg PO Q6H PRN 09/25/20 09/25/20 History Sulfamethoxazole/Trimethoprim 1 tab PO BID tab 09/28/20 Rx [Bactrim DS] Ascorbic Acid [Vitamin C] 500 mg PO DAILY 10/18/20 10/18/20 History Zinc Sulfate 220 mg PO DAILY 10/18/20 10/18/20 History Past History: PMHx: PSHx: FHx: Social: Hospitalist HPI ROS ROS unobtainable: due to mental status Hospitalist Exam Vitals: Vital Signs (12 hours) Temp Pulse Resp BP Pulse Ox 10/18/20 16:53 97.8 F 89 23 H 85/44 L 100 Weight Weight 143 lb 4.807 oz Most Recent Monitor Data Heart Rate from ECG 89 NIBP 85/44 NIBP BP-Mean 57 Respiration from ECG 19 SpO2 100 General Appearance: ill appearing General - other findings: Severely dry. Minimally responsive to noxious stimuli Eye: anicteric sclera Eye - other findings: Unequal pupils, right more than left ENT: normocephalic atraumatic Heart: RRR, no murmur, no gallops, no rubs Respiratory: CTAB, no wheezes, no rales, no ronchi Gastrointestinal: soft, non-tender, non-distended Extremities: no clubbing, no edema Musculoskeletal: generalized weakness Psychiatric: not oriented, somnolent Hospitalist Results Result Diagrams: 10/18/20 17:14 10/18/20 17:14 Lab results: Laboratory Last Values POC Glucose 172 mg/dL (70-100) H 10/18/20 17:12 Hospitalist H&P A/P (1) Acute metabolic encephalopathy Code(s): G93.41 - METABOLIC ENCEPHALOPATHY Status: Acute Assessment and Plan: As per impression (2) Acute hypernatremia Code(s): E87.0 - HYPEROSMOLALITY AND HYPERNATREMIA Status: Acute Assessment and Plan: As per impression (3) Dysphagia Code(s): R13.10 - DYSPHAGIA, UNSPECIFIED Status: Acute Assessment and Plan: As per impression (4) [id number] kidney injury Code(s): N17.9 - ACUTE KIDNEY FAILURE, UNSPECIFIED; N18.9 - CHRONIC KIDNEY DISEASE, UNSPECIFIED Status: Acute Assessment and Plan: As per impression (5) BPH (benign prostatic hyperplasia) Code(s): N40.0 - BENIGN PROSTATIC HYPERPLASIA WITHOUT LOWER URINRY TRACT SYMP Status: Acute Assessment and Plan: As per impression (6) Dehydration Code(s): E86.0 - DEHYDRATION Status: Acute Assessment and Plan: As per impression (7) Dementia Code(s): F03.90 - UNSPECIFIED DEMENTIA WITHOUT BEHAVIORAL DISTURBANCE Status: Acute Assessment and Plan: As per impression Plan: Assessment Patient is a 80-year-old -Thai male with a past medical history of hypertension, BPH, type 2 diabetes mellitus brought in for evaluation of severe hypernatremia and dehydration after he presented to [facility] with altered mental status. He has been having poor oral intake as per niece. He was found to have multiple endorgan damage including severe renal failure and severe dehydration. Severe hypernatremia Dehydration Acute on chronic kidney disease Hypotension Dysphagia metabolic encephalopathy Sacral decubitus ulcer Type 2 diabetes mellitus Alzheimer dementia BPH Plan: Admit to CCU for higher level of care Start patient on aggressive volume repletion. Nephrology is recommending D5 infusion with 1 amp of bicarb Critical care attending is also assisting in this case. Appreciate recommendations. Monitor BMP every 3 hours Will obtain a ultrasound nephrology consult Patient received a dose of vancomycin and Zosyn by ED critical care attending GI and DVT prophylaxis on board CT head in the morning Wound care consulted for sacral decubitus ulcer Family states the patient is full code. They are also requesting placement of PEG tube to improve his nutritional status
[2020-10-18 17:39] LABS: #Eosinphils 0.2 thou/uL (0.0-0.7); #Monocytes 0.5 thou/uL (0.11-0.59); #Neutrophils 15.5 thou/uL (1.40-6.50); %Basophils 0.1 % (0.0-1.0); %Eosinophils 1.1 % (0.0-10.0); %Monocytes 2.8 % (0.0-10.0); Hemoglobin 12.5 g/dL (14.0-18.0); Mean Corpuscular HGB CONC 30.6 g/dL (32.0-36.0); Mean Corpuscular Hemoglobin 27.5 pg (27.0-31.0); Mean Corpuscular Volume 89.9 fL (78.0-98.0); Mean Platelet Volume 10.4 fL (7.4-10.4); Platelet Count 181 thou/uL (130-400); RBC Distribution Width 15.4 % (11.5-14.5); Red Blood Cell (RBC) Count 4.54 mill/uL (4.70-6.10); White Blood Cell (WBC) Count 18.2 thou/uL (4.8-10.8)
[2020-10-18] MEDS ORDERED: Sodium Chloride 0.9% 1,000 ML IV SCH (17:45)
[2020-10-18] MEDS ORDERED: Sodium Bicarbonate 50 MEQ in Dextrose 5% in Water 1,000 ML IV SCH (18:00)
[2020-10-18 18:04] LABS: ALT (SGPT) 62 U/L (8-55); AST (SGOT) 42 U/L (5-34); Albumin 2.9 g/dL (3.4-4.8); Alkaline Phosphatase 75 U/L (40-110); Bilirubin, Total 0.5 mg/dL (0.2-1.2); Calc. Creatinine Clearance 12 mL/min (70-130); Calcium 8.3 mg/dL (7.8-10.44); Carbon Dioxide 10 mmol/L (23-31); Globulin 3.7 g/dL (2.4-3.5); Glucose 198 mg/dL (83-110); Protein, Total 6.6 g/dL (5.8-8.1); Sodium Greater than 175 mmol/L (136-145)
[2020-10-18 18:16] LABS: Lactic Acid 3.3 mmol/L (0.5-2.2)
[2020-10-18 18:25] LABS: Chloride Greater than 145 mmol/L (98-107)
[2020-10-18 18:27] LABS: BUN (Urea Nitrogen) 151 mg/dL (8.4-25.7)
--- NOTE | 2020-10-18 18:27 | PDOC.NEPPN ---
- Subjective Encounter Date: 10/18/20 - Objective Vital Signs & Weight: Vital Signs (12 hours) Temp Pulse Resp BP Pulse Ox 10/18/20 17:40 100 10/18/20 16:53 97.8 F 89 23 H 85/44 L 100 Weight Weight 143 lb 4.807 oz Most Recent Monitor Data Heart Rate from ECG 90 NIBP 103/58 NIBP BP-Mean 73 Respiration from ECG 23 SpO2 100 I&O: 10/17/20 10/18/20 10/19/20 06:59 06:59 06:59 Output Total 400 Balance -400 Result Diagrams: 10/18/20 17:14 10/18/20 17:14 Additional Labs: Accuchecks 10/18/20 17:12 POC Glucose 172 H Nephrology Results - Labs Result Diagrams: 10/18/20 17:14 10/18/20 17:14 Lab results: WBC 18.2 thou/uL (4.8-10.8) H 10/18/20 17:14 Hgb 12.5 g/dL (14.0-18.0) L 10/18/20 17:14 Hct 40.8 % (42.0-52.0) L 10/18/20 17:14 MCV 89.9 fL (78.0-98.0) 10/18/20 17:14 Plt Count 181 thou/uL (130-400) 10/18/20 17:14 Neutrophils % 85.0 % (42.0-75.0) H 10/18/20 17:14 ABG pH 7.26 (7.35-7.45) L 10/18/20 17:20 ABG pCO2 25.9 mmHg (35.0-45.0) L* 10/18/20 17:20 ABG pO2 91.7 mmHg (> 60.0) H 10/18/20 17:20 Sodium Greater than 175 mmol/L (136-145) H* 10/18/20 17:14 Potassium 4.0 mmol/L (3.5-5.1) 10/18/20 17:14 Carbon Dioxide 10 mmol/L (23-31) L 10/18/20 17:14 BUN Greater than 125 mg/dL (8.4-25.7) H 10/18/20 17:14 Creatinine 4.34 mg/dL (0.7-1.3) H 10/18/20 17:14 Glucose 198 mg/dL (83-110) H 10/18/20 17:14 Lactic Acid 3.3 mmol/L (0.5-2.2) H 10/18/20 17:53 Calcium 8.3 mg/dL (7.8-10.44) 10/18/20 17:14 Total Bilirubin 0.5 mg/dL (0.2-1.2) 10/18/20 17:14 AST 42 U/L (5-34) H 10/18/20 17:14 ALT 62 U/L (8-55) H 10/18/20 17:14 Alkaline Phosphatase 75 U/L (40-110) 10/18/20 17:14 Serum Total Protein 6.6 g/dL (5.8-8.1) 10/18/20 17:14 Albumin 2.9 g/dL (3.4-4.8) L 10/18/20 17:14 Sodium Greater than 175 mmol/L (136-145) H* 10/18/20 17:14 Potassium 4.0 mmol/L (3.5-5.1) 10/18/20 17:14 Carbon Dioxide 10 mmol/L (23-31) L 10/18/20 17:14 Anion Gap TNP 10/18/20 17:14 BUN Greater than 125 mg/dL (8.4-25.7) H 10/18/20 17:14 Creatinine 4.34 mg/dL (0.7-1.3) H 10/18/20 17:14 Glucose 198 mg/dL (83-110) H 10/18/20 17:14 Calcium 8.3 mg/dL (7.8-10.44) 10/18/20 17:14 Albumin 2.9 g/dL (3.4-4.8) L 10/18/20 17:14 Nephrology AP PN - Plan Acute renal failure with marked azotemia: Due to hemodynamic factors related to severe dehydration and lisinopril use, and rhabdomyolysis. Severe dehydration with hypernatremia: Due to excess free water deficit in excess of dehydration from poor oral intake and diuretic use. Severe metabolic acidosis: 2/2 Acute renal failure and metformin use. Rhabdomyolysis Encephalopathy. PLAN Start Hypotonic sodium bicarbonate containing fluid (D5 + 50 Meq on NaHCo3) at 200 cc/hr. Monitor electrolytes every 4-6 hours. Start free water flushes by NG tube Avoid nehrotoxic agents including metformin, lisinopril and diuretics. Get repeat CK in the am. Also get urine elecyrolytes and protein. Other treatments as per primary attending.
[2020-10-18] MEDS ORDERED: Piperacillin/Tazobactam 3.375 GM in Sodium Chloride 0.9% 100 ML IVPB SCH (19:00)
[2020-10-18] MEDS ORDERED: Dextrose 5% in Water 1,000 ML IV SCH (19:00)
--- NOTE | 2020-10-18 19:04 | CON ---
DATE OF CONSULTATION: 10/18/2020 TIME OF CONSULTATION: 5:30 p.m. HISTORY OF PRESENT ILLNESS: This patient is unable to provide any history. He is transferred from [facility] with markedly abnormal labs. He lives in a halfway and was transferred from the halfway to the outside ER for altered mentation. According to the records that I am reviewing, the patient was found to have a low glucose at the halfway when EMS was called around 9 a.m. and he was given an amp of D50. He has a history of diabetes, hypertension, cerebral infarction, cognitive deficits, gout, and Alzheimer's. His fluids were given, 3 L of saline, according to the nurse's checkout. He had been admitted to another hospital approximately 3 weeks ago. He did not eat or drink anything for 2 to 3 days prior to this admission. PAST MEDICAL HISTORY: As stated above. REVIEW OF SYSTEMS: Unable to obtain due to the patient's altered mental status. He resists eye opening and does not respond to verbal commands. He is moving spontaneously all extremities. PHYSICAL EXAMINATION: VITAL SIGNS: His blood pressure was 85/44 initially, improved to a MAP of 64 with additional IV fluids. His heart rate is 94. His room air saturation is 100%. GENERAL: He is in no acute distress. HEAD AND NECK: Shows resistance to eye opening. Oropharynx shows very poor dentition. There is some dried exudate in the mouth. Otherwise, mucous membranes are clean. Neck is without any JVD or masses. Stiffness is present. RESPIRATORY: Excursions are diminished and is clear, but no significant breath sounds noted. CARDIOVASCULAR: Regular rate and rhythm. ABDOMEN: Benign without hepatosplenomegaly. BACK: Shows sacral decubitus stage 2, right upper extremity. He has elbow and shoulder contraction. Left upper extremity is stiff as well. Both lower extremities are stiff, but he responds to plantar stim. SKIN: With poor turgor. PSYCHIATRIC: Unable to assess. His mental status is altered. LABORATORY DATA: His only labs that we have presently are an ABG showing a pH of 7.26, pCO2 of 26, pO2 of 92, and on that ABG, the sodium is listed as 189 with a potassium of 3.5. At the outside facility, the creatinine was at 5.2, carbon dioxide at 14, and glucose was 442. Glucose here is in the 200s. Albumin was 3.1. Liver functions, SGOT and SGPT were 70. The urinalysis showed 4 to 6 rbc's, rare to few bacteria, 1+ uric acid crystals, 2+ amorphous crystals, 1.025 specific gravity, glucose greater than 1000, protein of 30, and I do not see any ketones. Sodium there was greater than 175, potassium 4.7, and BUN 150. IMPRESSION: 1. Altered mental status. 2. Marked dehydration. 3. Marked electrolyte abnormality with hypernatremia. 4. Acute renal failure. 5. Metabolic acidosis, uncertain etiology, possible diabetic ketoacidosis. 6. Transaminitis, possible shock liver. 7. History of Alzheimer dementia. 8. History of strokes with contractures. 9. Decubitus ulcer with possible sepsis from halfway. 10. Possible obstructive uropathy. PLAN: 1. Hydration. Try to correct his electrolytes over the next 48 hours. Evaluate whether he has DKA or HHN. Villanueva catheter. Send urinalysis and cultures of blood and urine. Central line might be useful; however, we are unable to reach any contacts that are listed on the face sheet. 2. Evaluate with head CT once his electrolytes are stabilized if he does not improve his mental status and establish what his baseline is. 3. DVT and stress ulcer prophylaxis. 4. Glycemic control. 5. Ultrasound of the kidneys and abdomen. 6. Antibiotics, Zosyn x1 and vancomycin x1. 7. Wound care. 8. Further intervention and decisions will be based on the patient's clinical response. Thank you for asking for a Critical Care consultation. Critical care time at bedside, 45 minutes. Job ID: [id number]
[2020-10-18 19:21] LABS: Creatinine, Urine 95.39 mg/dL (63-166)
[2020-10-18] MEDS ORDERED: Vancomycin 1 GM in Premix Bag 1 BAG IVPB SCH (19:30)
[2020-10-18 20:00] LABS: ALT (SGPT) 63 U/L (8-55); AST (SGOT) 42 U/L (5-34); Alkaline Phosphatase 77 U/L (40-110); Bilirubin, Total 0.6 mg/dL (0.2-1.2); Calc. Creatinine Clearance 13 mL/min (70-130); Calcium 8.5 mg/dL (7.8-10.44); Carbon Dioxide 13 mmol/L (23-31); Globulin 3.6 g/dL (2.4-3.5); Glucose 177 mg/dL (83-110); Magnesium 3.1 mg/dL (1.6-2.6); Potassium 3.5 mmol/L (3.5-5.1); Protein, Total 6.6 g/dL (5.8-8.1); Sodium Greater than 175 mmol/L (136-145)
[2020-10-18] MEDS ORDERED: D5 1/4 NS 1,000 ML IV SCH (20:00)
[2020-10-18 20:04] LABS: Chloride Greater than 145 mmol/L (98-107)
[2020-10-18 20:05] LABS: Troponin I 0.278 ng/mL (< 0.028)
[2020-10-18 20:08] LABS: BUN (Urea Nitrogen) 125 mg/dL (8.4-25.7)
[2020-10-18] MEDS: Heparin 5,000 UNITS/ML VIAL SC SCH (20:11)
[2020-10-18 20:33] LABS: INR-International Normal Ratio 1.4; PTT 28.1 sec (22.9-36.1); Prothrombin Time 17.5 sec (12.0-14.7)
--- NOTE | 2020-10-18 20:46 | ULT ---
RENAL ULTRASOUND: History: Renal failure. Comparison: CT abdomen/pelvis, 07-07-17 Technique: Multiplanar reynaga scale and color doppler images were obtained in a renal ultrasound. FINDINGS: There are cysts in the right kidney measuring up to 3.3 cm in size. No left renal abnormality is seen . There is no evidence of hydronephrosis or shadowing calculi in either kidney. The kidneys measure 9 .9 and 9.6 cm in length on the right and left, respectively. The urinary bladder is decompressed with a Villanueva catheter. IMPRESSION: Right renal cysts. POS: EAA
[2020-10-18 20:58] LABS: Band 8 % (5-11); Eosinophils 2 % (0-10); Hemoglobin 13.3 g/dL (14.0-18.0); Lymphocytes 6 % (21-51); MDiff Complete? YES; Mean Corpuscular HGB CONC 31.3 g/dL (32.0-36.0); Mean Corpuscular Volume 89.4 fL (78.0-98.0); Mean Platelet Volume 10.6 fL (7.4-10.4); Monocytes 2 % (0-10); Neutrophil 82 % (42-75); Platelet Count 159 thou/uL (130-400); RBC Distribution Width 15.4 % (11.5-14.5); Red Blood Cell (RBC) Count 4.76 mill/uL (4.70-6.10); White Blood Cell (WBC) Count 18.5 thou/uL (4.8-10.8)
--- NOTE | 2020-10-18 22:45 | CT ---
CT OF THE BRAIN WITHOUT CONTRAST: Date: 10/18/2020 COMPARISON: 09/29/2020. HISTORY: Altered mental status. TECHNIQUE: Multiple contiguous axial images were obtained in a CT of the brain without contrast. FINDINGS: There are scattered hypodensities in the subcortical and periventricular white matter, likely seconda ry to small vessel ischemic disease. No large confluent infarction is seen. There is no evidence of h ydrocephalus, intracranial hemorrhage, or extra-axial fluid collection. The calvarium and overlying soft tissues are unremarkable. The visualized paranasal sinuses and masto id air cells are well aerated. IMPRESSION: No evidence of acute intracranial abnormality. POS: EAA
[2020-10-18 23:54] LABS: BUN (Urea Nitrogen) 118 mg/dL (8.4-25.7); Calc. Creatinine Clearance 14 mL/min (70-130); Calcium 7.8 mg/dL (7.8-10.44); Carbon Dioxide 14 mmol/L (23-31); Glucose 252 mg/dL (83-110); Potassium 3.9 mmol/L (3.5-5.1); Sodium Greater than 175 mmol/L (136-145)
[2020-10-19 00:06] LABS: Chloride Greater than 145 mmol/L (98-107)
--- NOTE | 2020-10-19 00:52 | PDOC.BPN ---
- Brief Progress Note Encounter Date: 10/19/20 House informed of patient being hyponatremic on bicarb drip as he also has severe metabolic acidosis. His dose of bicarb drip for nausea if some improvement in his bicarb however hypernatremia above 175 remains consistent. He is currently having hypotonic fluid infusion although I think he has hypov olemic hypernatremia Last BP read was 88/43 We will give him a liter of normal saline bolus to correct hypovolemia We will then continue with correction of hypernatremia with hypotonic fluids.
[2020-10-19] MEDS ORDERED: Sodium Chloride 0.9% 1,000 ML IV SCH (01:00)
[2020-10-19] MEDS ORDERED: Sodium Bicarb 50 MEQ/50 ML Abboject 8.4% SYRINGE IVP SCH (01:15)
[2020-10-19 01:19] LABS: SARS-CoV-2 PCR by NAA Not Detected (NotDetected)
[2020-10-19] MEDS ORDERED: FLU VACC QS2020-21(65YR UP)/PF 240 MCG/0.7 ML SYRINGE IM ONE (09:00)
[2020-10-19] MEDS: Famotidine/PF 20 mg/2ml Vial SLOW IVP SCH (10:55)
[2020-10-19] MEDS: Heparin 5,000 UNITS/ML VIAL SC SCH ×2 (10:55→20:51)
[2020-10-19] MEDS ORDERED: Dextrose 5% in Water 1,000 ML IV PRN (11:50)
[2020-10-19] MEDS ORDERED: Dextrose 50% Abboject 50 ML SYRINGE SLOW IVP PRN (11:50)
[2020-10-19] MEDS ORDERED: Insulin Regular 300 UNITS/3 ML VIAL SC PRN (11:50)
--- NOTE | 2020-10-19 12:14 | PRG ---
DATE OF SERVICE: 10/19/2020 SUBJECTIVE: The patient remains in the ICU on IV fluids. He has severe hypernatremia. OBJECTIVE: VITAL SIGNS: His pulse is 82, blood pressure 120/57, O2 sat 100%, respiratory rate 20. I find him arousable, but does not follow commands. He has left-sided hemiplegia. HEENT: Otherwise unremarkable. NECK: No JVD. LUNGS: Clear. CARDIAC: S1, S2. Regular. ABDOMEN: Soft. EXTREMITIES: No edema. LABORATORY DATA: His last labs last night showed a sodium of 175, potassium 3.9, chloride 145, CO2 of 14, BUN 118, creatinine 3.9, glucose 252. ASSESSMENT: 1. Profound volume depletion with severe free water deficit. 2. Metabolic acidosis. 3. Mild rhabdomyolysis. PLAN: 1. Follow sodium levels closely and adjust IV fluid rate as needed. 2. He was on empiric antibiotics-those have been stopped. 3. We will follow. Job ID: [id number]
[2020-10-19] MEDS ORDERED: Aspirin 81 mg Enteric Coated Tablet PER TUBE SCH (12:15)
[2020-10-19] MEDS: Insulin Regular 300 UNITS/3 ML VIAL SC PRN ×2 (12:40→18:39)
[2020-10-19] MEDS: Dextrose 5% in Water 1,000 ML IV SCH ×3 (12:49→22:00)
[2020-10-19] MEDS: Lactated Ringer's 1,000 ML IV SCH ×2 (12:50→22:00)
[2020-10-19 15:29] LABS: BUN (Urea Nitrogen) 115 mg/dL (8.4-25.7); Calc. Creatinine Clearance 15 mL/min (70-130); Calcium 7.5 mg/dL (7.8-10.44); Carbon Dioxide 13 mmol/L (23-31); Chloride Greater than 145 mmol/L (98-107); Glucose 169 mg/dL (83-110); Potassium 3.2 mmol/L (3.5-5.1); Sodium Greater than 175 mmol/L (136-145)
--- NOTE | 2020-10-19 15:43 | PDOC.NEPPN ---
- Subjective Encounter Date: 10/19/20 Subjective: Seen and examined. somnolent. - Objective Vital Signs & Weight: Vital Signs (12 hours) Temp Pulse Pulse BP BP Pulse Ox Pulse Ox 10/19/20 15:00 98.7 F 10/19/20 13:45 75 87 137/62 116/61 100 10/19/20 12:00 98.9 F 10/19/20 11:00 98.2 F 10/19/20 09:00 98.7 F 10/19/20 08:00 99.1 F 100 10/19/20 07:00 99.5 F Pulse Ox 10/19/20 15:00 10/19/20 13:45 100 10/19/20 12:00 10/19/20 11:00 10/19/20 09:00 10/19/20 08:00 10/19/20 07:00 Weight Weight 138 lb 10.732 oz Most Recent Monitor Data Heart Rate from ECG 85 NIBP 133/70 NIBP BP-Mean 91 Respiration from ECG 19 SpO2 100 I&O: 10/18/20 10/19/20 10/20/20 06:59 06:59 06:59 Intake Total 3300 800 Output Total 980 855 Balance 2320 -55 Result Diagrams: 10/18/20 19:21 10/19/20 05:25 Additional Labs: Accuchecks 10/18/20 10/18/20 19:54 17:12 POC Glucose 84 172 H Nephrology ROS - Medication Medications: Active Medications Generic Name Dose Route Start Last Admin Trade Name Freq PRN Reason Stop Dose Admin Aspirin 81 mg 10/19/20 12:15 10/19/20 13:53 Aspirin 81 Mg Enteric Coated Tablet PER TUBE 10/19/20 16:15 81 mg ONE ALTAGRACIA Administration Famotidine 20 mg 10/19/20 09:00 10/19/20 10:55 Famotidine/Pf 20 Mg/2ml Vial SLOW IVP 20 mg DAILY ALTAGRACIA Administration Heparin Sodium (Porcine) 5,000 units 10/18/20 21:00 10/19/20 10:55 Heparin 5,000 Units/Ml Vial SC 5,000 units BID ALTAGRACIA Administration Sodium Bicarbonate 50 meq/ 1,050 mls @ 200 mls/hr 10/18/20 18:00 10/18/20 20:40 Dextrose/Water IV 1,050 mls INF ALTAGRACIA Administration Sodium Chloride 1,000 mls @ 999 mls/hr 10/19/20 01:00 10/19/20 00:52 Normal Saline 0.9% IV 10/19/20 02:00 1,000 mls .Q1H1M ALTAGRACIA Administration Dextrose/Water 1,000 mls @ 200 mls/hr 10/19/20 11:45 10/19/20 12:49 D5w IV 1,000 mls .Q5H ALTAGRACIA Administration Lactated Ringer's 1,000 mls @ 100 mls/hr 10/19/20 11:45 10/19/20 12:50 Lactated Ringer's IV 1,000 mls .Q10H ALTAGRACIA Administration Influenza Virus Vaccine Quadrival 240 mcg 10/19/20 09:00 10/19/20 10:32 Flu Vacc [id number](65yr Up)/Pf 240 Mcg/0.7 Ml Syringe IM 10/19/20 09:01 Not Given .ONCE ONE Insulin Human Regular 0 units 10/19/20 11:50 10/19/20 12:40 Insulin Regular 300 Units/3 Ml Vial SC 6 unit .MODERATE SLIDING SC PRN Administration Moderate Correctional Scale Sodium Bicarbonate 50 meq 10/19/20 01:15 10/19/20 10:32 Sodium Bicarb 50 Meq/50 Ml Abboject 8.4% Syringe IVP 10/19/20 03:15 Not Given NOW ALTAGRACIA - Exam General - other findings: somnolent Eye: anicteric sclera ENT: normocephalic atraumatic, dry oral mucosa Neck: symmetric Respiratory - other findings: fair air entry with transmitted sound Cardiovascular: RRR Extremities - other findings: trace to mild bilater hand edema. No leg edema Neurological - other findings: somnolent. Non conversation. moves with stimulation Nephrology Results - Labs Result Diagrams: 10/18/20 19:21 10/19/20 05:25 Lab results: WBC 18.5 thou/uL (4.8-10.8) H 10/18/20 19:21 Hgb 13.3 g/dL (14.0-18.0) L 10/18/20 19:21 Hct 42.6 % (42.0-52.0) 10/18/20 19: MCV 89.4 fL (78.0-98.0) 10/18/20 19:21 Plt Count 159 thou/uL (130-400) 10/18/20 19:21 Neutrophils % 85.0 % (42.0-75.0) H 10/18/20 17:14 Band Neuts % (Manual) 8 % (5-11) 10/18/20 19:21 ABG pH 7.26 (7.35-7.45) L 10/18/20 17:20 ABG pCO2 25.9 mmHg (35.0-45.0) L* 10/18/20 17:20 ABG pO2 91.7 mmHg (> 60.0) H 10/18/20 17:20 Sodium Greater than 175 mmol/L (136-145) H* 10/19/20 05:25 Potassium 3.2 mmol/L (3.5-5.1) L 10/19/20 05:25 Chloride Greater than 145 mmol/L (98-107) H* 10/19/20 05:25 Carbon Dioxide 13 mmol/L (23-31) L 10/19/20 05:25 BUN 115 mg/dL (8.4-25.7) H 10/19/20 05:25 Creatinine 3.51 mg/dL (0.7-1.3) H 10/19/20 05:25 Glucose 169 mg/dL (83-110) H 10/19/20 05:25 Lactic Acid 3.3 mmol/L (0.5-2.2) H 10/18/20 17:53 Calcium 7.5 mg/dL (7.8-10.44) L 10/19/20 05:25 Total Bilirubin 0.6 mg/dL (0.2-1.2) 10/18/20 19:21 AST 42 U/L (5-34) H 10/18/20 19:21 ALT 63 U/L (8-55) H 10/18/20 19:21 Alkaline Phosphatase 77 U/L (40-110) 10/18/20 19:21 Troponin I 0.278 ng/mL (< 0.028) H 10/18/20 19:21 Serum Total Protein 6.6 g/dL (5.8-8.1) 10/18/20 19:21 Albumin 3.0 g/dL (3.4-4.8) L 10/18/20 19:21 Sodium Greater than 175 mmol/L (136-145) H* 10/19/20 05:25 Potassium 3.2 mmol/L (3.5-5.1) L 10/19/20 05:25 Chloride Greater than 145 mmol/L (98-107) H* 10/19/20 05:25 Carbon Dioxide 13 mmol/L (23-31) L 10/19/20 05:25 Anion Gap TNP 10/19/20 05:25 BUN 115 mg/dL (8.4-25.7) H 10/19/20 05:25 Creatinine 3.51 mg/dL (0.7-1.3) H 10/19/20 05:25 Glucose 169 mg/dL (83-110) H 10/19/20 05:25 Calcium 7.5 mg/dL (7.8-10.44) L 10/19/20 05:25 Magnesium 3.1 mg/dL (1.6-2.6) H 10/18/20 19:21 Albumin 3.0 g/dL (3.4-4.8) L 10/18/20 19:21 Nephrology AP PN - Plan Acute renal failure with marked azotemia: Due to hemodynamic factors related to severe dehydration and lisinopril use, and rhabdomyolysis. Improving with IVF Severe dehydration with hypernatremia: Due to excess free water deficit in excess of dehydration from poor oral intake and diuretic use. Severe metabolic acidosis: 2/2 Acute renal failure and metformin use. Rhabdomyolysis: CK level today is up. Encephalopathy.Most likely uremia superimposed on dementia PLAN Start D5w at 200 cc/hr. Also start LR at 100 cc/hr. Increase free water via NG tube to 200 every 2hrs. Monitor electrolytes every 6 hours. Other supportive care to continue Get repeat CK in the am.
--- NOTE | 2020-10-19 16:24 | PDOC.HOSPP ---
- Subjective Encounter Date: 10/19/20 Encounter Time: 09:30 non-verbal Subjective: Patient seen and examined for encephalopathy with severe hyponatremia. Remains confused. Overnight events noted - Objective Vital Signs & Weight: Vital Signs (12 hours) Temp Pulse Pulse BP BP Pulse Ox Pulse Ox 10/19/20 15:00 98.7 F 10/19/20 13:45 75 87 137/62 116/61 100 10/19/20 12:00 98.9 F 10/19/20 11:00 98.2 F 10/19/20 09:00 98.7 F 10/19/20 08:00 99.1 F 100 10/19/20 07:00 99.5 F Pulse Ox 10/19/20 15:00 10/19/20 13:45 100 10/19/20 12:00 10/19/20 11:00 10/19/20 09:00 10/19/20 08:00 10/19/20 07:00 Weight Weight 138 lb 10.732 oz Most Recent Monitor Data Heart Rate from ECG 85 NIBP 133/70 NIBP BP-Mean 91 Respiration from ECG 19 SpO2 100 I&O: 10/18/20 10/19/20 10/20/20 06:59 06:59 06:59 Intake Total 3300 800 Output Total 980 855 Balance 2320 -55 Result Diagrams: 10/18/20 19:21 10/19/20 05:25 Additional Labs: Accuchecks 10/18/20 10/18/20 19:54 17:12 POC Glucose 84 172 H Abnormal Lab Results - Last 48 hrs 10/18/20 17:14: Sodium Greater than 175 H*, Chloride Greater than 145 H*, Carbon Dioxide 10 L, BUN 151 H, Creatinine 4.34 H, AST 42 H, ALT 62 H, Albumin 2.9 L, Globulin 3.7 H, Albumin/Globulin Ratio 0.8 L 10/18/20 17:14: WBC 18.2 H, RBC 4.54 L, Hgb 12.5 L, Hct 40.8 L, MCHC 30.6 L, RDW 15.4 H, Neutrophils % 85.0 H, Lymphocytes % 11.0 L, Neutrophils # 15.5 H 10/18/20 17:20: Bicarbonate Actual 11.3 L, ABG pH 7.26 L, ABG pCO2 25.9 L*, ABG pO2 91.7 H, ABG O2 Content 17.0 L, ABG Base Excess -14.2 L, ABG Hematocrit 37.0 L, ABG Hemoglobin 12.6 L, ABG Deoxyhemoglobin 4.1 H, A-a O2 Gradient 25.655 H, Potassium 3.48 L, Sodium 189 H 10/18/20 17:53: Lactic Acid 3.3 H 10/18/20 19:21: Sodium Greater than 175 H*, Chloride Greater than 145 H*, Carbon Dioxide 13 L, BUN 125 H, Creatinine 4.20 H, Magnesium 3.1 H, AST 42 H, ALT 63 H, Albumin 3.0 L, Globulin 3.6 H, Albumin/Globulin Ratio 0.8 L 10/18/20 19:21: WBC 18.5 H, Hgb 13.3 L, MCHC 31.3 L, RDW 15.4 H, MPV 10.6 H, Neutrophils % (Manual) 82 H, Lymphocytes % (Manual) 6 L 10/18/20 19:21: Troponin I 0.278 H 10/18/20 20:19: PT 17.5 H 10/18/20 23:14: Sodium Greater than 175 H*, Chloride Greater than 145 H*, Carbon Dioxide 14 L, BUN 118 H, Creatinine 3.90 H 10/18/20 : U Random Total Protein 31 H 10/19/20 05:25: Potassium 3.2 L, Sodium Greater than 175 H*, Chloride Greater than 145 H*, Carbon Dioxide 13 L, BUN 115 H, Creatinine 3.51 H, Calcium 7.5 L Microbiology - Entire Visit 10/18/[address] catheter Urine Culture - Preliminary NO GROWTH AT 12 HOURS Radiology Reviewed by me: Yes (CT brainno acute abnormality) EKG Reviewed by me: Yes (Telemetrysinus rhythm) Hospitalist ROS - Review of Systems ROS unobtainable: due to mental status - Medication Medications: Active Medications Generic Name Dose Route Start Last Admin Trade Name Freq PRN Reason Stop Dose Admin Famotidine 20 mg 10/19/20 09:00 10/19/20 10:55 Famotidine/Pf 20 Mg/2ml Vial SLOW IVP 20 mg DAILY ALTAGRACIA Administration Heparin Sodium (Porcine) 5,000 units 10/18/20 21:00 10/19/20 10:55 Heparin 5,000 Units/Ml Vial SC 5,000 units BID ALTAGRACIA Administration Sodium Bicarbonate 50 meq/ 1,050 mls @ 200 mls/hr 10/18/20 18:00 10/18/20 20:40 Dextrose/Water IV 1,050 mls INF ALTAGRACIA Administration Sodium Chloride 1,000 mls @ 999 mls/hr 10/19/20 01:00 10/19/20 00:52 Normal Saline 0.9% IV 10/19/20 02:00 1,000 mls .Q1H1M ALTAGRACIA Administration Dextrose/Water 1,000 mls @ 200 mls/hr 10/19/20 11:45 10/19/20 12:49 D5w IV 1,000 mls .Q5H ALTAGRACIA Administration Lactated Ringer's 1,000 mls @ 100 mls/hr 10/19/20 11:45 10/19/20 12:50 Lactated Ringer's IV 1,000 mls .Q10H ALTAGRACIA Administration Influenza Virus Vaccine Quadrival 240 mcg 10/19/20 09:00 10/19/20 10:32 Flu Vacc [id number](65yr Up)/Pf 240 Mcg/0.7 Ml Syringe IM 10/19/20 09:01 Not Given .ONCE ONE Insulin Human Regular 0 units 10/19/20 11:50 10/19/20 12:40 Insulin Regular 300 Units/3 Ml Vial SC 6 unit .MODERATE SLIDING SC PRN Administration Moderate Correctional Scale Sodium Bicarbonate 50 meq 10/19/20 01:15 10/19/20 10:32 Sodium Bicarb 50 Meq/50 Ml Abboject 8.4% Syringe IVP 10/19/20 03:15 Not Given NOW [facility] Hospitalist Exam Vitals: Vital Signs (12 hours) Temp Pulse Pulse BP BP Pulse Ox Pulse Ox 10/19/20 15:00 98.7 F 10/19/20 13:45 75 87 137/62 116/61 100 10/19/20 12:00 98.9 F 10/19/20 11:00 98.2 F 10/19/20 09:00 98.7 F 10/19/20 08:00 99.1 F 100 10/19/20 07:00 99.5 F Pulse Ox 10/19/20 15:00 10/19/20 13:45 100 10/19/20 12:00 10/19/20 11:00 10/19/20 09:00 10/19/20 08:00 10/19/20 07:00 Weight Weight 138 lb 10.732 oz Most Recent Monitor Data Heart Rate from ECG 85 NIBP 133/70 NIBP BP-Mean 91 Respiration from ECG 19 SpO2 100 General Appearance: ill appearing Eye: anicteric sclera ENT: normocephalic atraumatic, dry oral mucosa Neck: supple, no JVD Heart: RRR, no gallops, no rubs, normal peripheral pulses Respiratory: no wheezes, no rales, no ronchi, normal chest expansion Gastrointestinal: soft, normal bowel sounds, no guarding, no rigidity Extremities: no cyanosis, no clubbing, no edema Neurological - other findings: Neurowithdrawing to painful stimuli, exam limited due to current mentation Psychiatric: lethargic Hosp A/P (1) Toxic metabolic encephalopathy Code(s): G92 - TOXIC ENCEPHALOPATHY Status: Acute (2) Hyperosmolality and hypernatremia Code(s): E87.0 - HYPEROSMOLALITY AND HYPERNATREMIA Status: Acute (3) [id number] kidney injury Code(s): N17.9 - ACUTE KIDNEY FAILURE, UNSPECIFIED; N18.9 - CHRONIC KIDNEY DISEASE, UNSPECIFIED Status: Acute Qualifiers: Chronic kidney disease stage: stage 2 (mild) (4) Metabolic acidosis Code(s): E87.2 - ACIDOSIS Status: Acute (5) Rhabdomyolysis Code(s): M62.82 - RHABDOMYOLYSIS Status: Acute (6) Dehydration Code(s): E86.0 - DEHYDRATION Status: Acute (7) Sepsis Code(s): A41.9 - SEPSIS, UNSPECIFIED ORGANISM Status: Suspected Plan: Present on admission (8) Lactic acidosis Code(s): E87.2 - ACIDOSIS Status: Acute (9) Diabetes mellitus Code(s): E11.9 - TYPE 2 DIABETES MELLITUS WITHOUT COMPLICATIONS Status: Chronic Qualifiers: Chronic kidney disease stage: stage 2 (mild) (10) HLD (hyperlipidemia) Code(s): E78.5 - HYPERLIPIDEMIA, UNSPECIFIED Status: Chronic (11) HTN (hypertension) Code(s): I10 - ESSENTIAL (PRIMARY) HYPERTENSION Status: Chronic (12) Alzheimer's dementia Code(s): G30.9 - ALZHEIMER'S DISEASE, UNSPECIFIED; F02.80 - DEMENTIA IN OTH DISEASES CLASSD ELSWHR W/O BEHAVRL DISTURB Status: Chronic (13) Hypokalemia Code(s): E87.6 - HYPOKALEMIA Status: Acute (14) Swallowing dysfunction Code(s): R13.10 - DYSPHAGIA, UNSPECIFIED Status: Acute (15) Sacral decubitus ulcer, stage II Code(s): L89.152 - PRESSURE ULCER OF SACRAL REGION, STAGE 2 Status: Chronic Plan: Present on admission (16) BPH (benign prostatic hyperplasia) Code(s): N40.0 - BENIGN PROSTATIC HYPERPLASIA WITHOUT LOWER URINRY TRACT SYMP Status: Chronic - Plan 80-year-old male with dementia, hypertension and swallowing dysfunction currently on modified diet presents to the emergency room at [place] on 10/18 with altered mentation and poor oral intake of 3 days duration. His blood sugar per EMS was less than 50. He received D50 by EMS and was started on IV fluids with dextrose. His temperature by EMS was around 96 with mild tachypnea. In the emergency room his work-up was consistent with leukocytosis with WBC 14.4 with left shift, sodium greater than 175, bicarb 14,lactic acid 3.3, BUN 150 with creatinine of 5.22, CK 1128 with blood glucose of 442 on the BMP. He received 10 units of IV insulin, vancomycin, cefepime along with IV fluids and was transferred to intensive care unit for hospital admission. Plan: Continue IV fluid management per nephrology. Monitor basic metabolic profile and q. 6 hourly per nephrology. Patient received 1 dose of vancomycin and Zosyn yesterday. Due to persistent leukocytosis we will start meropenem. Repeat chest x-ray in a.m. Check CK in a.m. Add low-dose aspirin due to elevated troponin which is probably due to demand ischemia. Add moderate sliding scale. Continue wound care for decubitus ulcer present on admission. DVT prophylaxis with subcu heparin GI prophylaxis. PT/OT/speech. I discussed plan of care with KATHY Potter at [phone]. She requested to continue full code. Palliative care consulted
[2020-10-19 16:59] LABS: Anion Gap 13 mmol/L (10-20); BUN (Urea Nitrogen) 82 mg/dL (8.4-25.7); Calc. Creatinine Clearance 21 mL/min (70-130); Calcium 7.4 mg/dL (7.8-10.44); Carbon Dioxide 15 mmol/L (23-31); Chloride 143 mmol/L (98-107); Glucose 229 mg/dL (83-110); Potassium 3.3 mmol/L (3.5-5.1); Sodium 168 mmol/L (136-145)
[2020-10-19] MEDS: Meropenem 500 MG in Sodium Chloride 0.9% 100 ML IVPB SCH (18:14)
[2020-10-19 19:13] LABS: Anion Gap 13 mmol/L (10-20); BUN (Urea Nitrogen) 96 mg/dL (8.4-25.7); Calc. Creatinine Clearance 17 mL/min (70-130); Calcium 7.5 mg/dL (7.8-10.44); Carbon Dioxide 15 mmol/L (23-31); Chloride 145 mmol/L (98-107); Glucose 261 mg/dL (83-110); Potassium 3.3 mmol/L (3.5-5.1); Sodium 170 mmol/L (136-145)
[2020-10-19] MEDS: Thiamine 100 MG TAB PER TUBE SCH (20:51)
[2020-10-19] MEDS: Multivit, Therapeutic 1 TAB PER TUBE SCH (20:51)
[2020-10-19] MEDS: Folic Acid 1 MG TAB PER TUBE SCH (20:51)
[2020-10-19] MEDS: Latanoprost 0.005% Ophth Soln 2.5 ml Bottle EA EYE SCH (20:52)
[2020-10-19] MEDS ORDERED: TIMOLOL MALEATE FS SCH (21:00)
[2020-10-19 21:41] LABS: Anion Gap 12 mmol/L (10-20); BUN (Urea Nitrogen) 71 mg/dL (8.4-25.7); Calc. Creatinine Clearance 23 mL/min (70-130); Calcium 7.3 mg/dL (7.8-10.44); Carbon Dioxide 16 mmol/L (23-31); Chloride 137 mmol/L (98-107); Glucose 189 mg/dL (83-110); Potassium 3.1 mmol/L (3.5-5.1); Sodium 162 mmol/L (136-145)
[2020-10-19 23:12] LABS: SARS-CoV-2 IgG Ab Non-Reactive (NonReactive); SARS-CoV-2 IgG Index 0.07 S/CO (< 1.40)
[2020-10-20] MEDS: Insulin Regular 300 UNITS/3 ML VIAL SC PRN ×2 (00:15→06:43)
[2020-10-20] MEDS: Dextrose 5% in Water 1,000 ML IV SCH ×2 (02:45→08:28)
[2020-10-20 04:11] LABS: Lactic Acid 1.7 mmol/L (0.5-2.2)
[2020-10-20 04:15] LABS: CK (CPK) 2224 U/L (30-200); Phosphorus 2.5 mg/dL (2.3-4.7); Vancomycin, Random 18.6 ug/mL (See Comment)
[2020-10-20 04:18] LABS: ALT (SGPT) 41 U/L (8-55); AST (SGOT) 42 U/L (5-34); Albumin 2.4 g/dL (3.4-4.8); Alkaline Phosphatase 64 U/L (40-110); Anion Gap 10 mmol/L (10-20); BUN (Urea Nitrogen) 55 mg/dL (8.4-25.7); Bilirubin, Total 0.5 mg/dL (0.2-1.2); Calc. Creatinine Clearance 26 mL/min (70-130); Calcium 7.1 mg/dL (7.8-10.44); Carbon Dioxide 15 mmol/L (23-31); Globulin 2.8 g/dL (2.4-3.5); Glucose 179 mg/dL (83-110); Magnesium 1.9 mg/dL (1.6-2.6); Potassium 3.1 mmol/L (3.5-5.1); Protein, Total 5.2 g/dL (5.8-8.1); Sodium 155 mmol/L (136-145)
[2020-10-20 04:21] LABS: Chloride 133 mmol/L (98-107)
[2020-10-20 04:22] LABS: Band 16 % (5-11); Eosinophils 2 % (0-10); Hemoglobin 9.5 g/dL (14.0-18.0); Lymphocytes 17 % (21-51); MDiff Complete? YES; Mean Corpuscular HGB CONC 32.3 g/dL (32.0-36.0); Mean Corpuscular Hemoglobin 27.6 pg (27.0-31.0); Mean Corpuscular Volume 85.4 fL (78.0-98.0); Mean Platelet Volume 10.5 fL (7.4-10.4); Monocytes 3 % (0-10); Neutrophil 62 % (42-75); Platelet Count 120 thou/uL (130-400); RBC Distribution Width 14.4 % (11.5-14.5); Red Blood Cell (RBC) Count 3.46 mill/uL (4.70-6.10); White Blood Cell (WBC) Count 9.4 thou/uL (4.8-10.8)
[2020-10-20] MEDS: Meropenem 500 MG in Sodium Chloride 0.9% 100 ML IVPB SCH ×2 (04:29→17:34)
--- NOTE | 2020-10-20 06:50 | CON ---
DATE OF CONSULTATION: 10/18/2020 SERVICE: Nephrology. REASON FOR CONSULTATION: Acute renal failure and electrolyte derangements. REQUESTING PHYSICIAN: Prince Sherrill Vela MD HISTORY OF PRESENT ILLNESS: Following history was obtained from review of medical record as the patient is encephalopathic. The patient is admitted on transfer from [place] ER for further evaluation and treatment of acute renal failure and severe electrolyte derangements as well as encephalopathy. An 80-year-old male patient, [facility]p resident at [place] with prior history of hypertension, dementia, amongst others, who was just discharged from the hospital a few weeks ago following treatment for the sepsis from urinary tract infection associated with acute encephalopathy, now brought in due to mental status change, generalized weakness, and poor oral intake. Of note, on discharge on September 28, 2020, the patient was started on Bactrim DS and he also was on metformin, lisinopril, and hydrochlorothiazide. He reportedly was said to be generally weak with decreased responsiveness and poor oral intake associated with hypotension, hence the patient was taken to the ER, where he was found to have markedly elevated serum sodium and chloride as well as acute elevation in creatinine. The patient was obtunded and was subsequently treated with IV fluids with improvement in blood pressure and subsequently, transferred in here for further treatment. He reportedly received about 4 L of normal saline prior to transfer. PAST MEDICAL HISTORY: 1. Hypertension. 2. Hyperlipidemia. 3. Dementia. 4. Anxiety. 5. Type 2 diabetes mellitus. 6. Glaucoma. PAST SURGICAL HISTORY: Transurethral resection of the prostate. FAMILY HISTORY: Unable to obtain due to the patient's condition. SOCIAL HISTORY: intermediate resident. Former smoker, quit about 10 years ago. ALLERGIES: REPORTEDLY SAID TO BE ALLERGIC TO IODINE AND IODINE CONTAINING PRODUCTS. PRIOR TO HOSPITAL MEDICATIONS: Review of recent discharge showed that the patient should be on the following medications. 1. Bactrim DS one tablet p.o. b.i.d. 2. Tramadol 50 mg q.6h p.r.n. 3. Timolol one drop to each eye b.i.d. 4. Temazepam 7.5 mg p.o. daily at bedtime. 5. Exelon patch one daily. 6. Metoprolol 50 mg p.o. b.i.d. 7. Melatonin two tablets p.o. daily at bedtime. 8. Loperamide two tablets p.o. daily p.r.n. 9. Lisinopril 20 mg p.o. daily. 10. Latanoprost one drop to each eye daily at bedtime. 11. Nuedexta 10 mg p.o. daily. 12. Ascorbic acid 500 mg p.o. b.i.d. 13. Amlodipine 10 mg p.o. daily. 14. Allopurinol 100 mg p.o. daily. 15. Acetaminophen 650 mg p.o. q.6 p.r.n. 16. Namenda 10 mg p.o. daily. 17. Dorzolamide eye drops one drop to each eye b.i.d. 18. Donepezil 10 mg p.o. daily at bedtime. 19. Metformin 500 mg p.o. daily. 20. Potassium chloride 20 mEq p.o. daily. 21. Hydrochlorothiazide 25 mg p.o. daily. 22. Lipitor 40 mg p.o. daily. REVIEW OF SYSTEMS: Could not be performed due to the patient's condition. PHYSICAL EXAMINATION: VITAL SIGNS: Temperature 97.8, pulse 92, respiratory rate 18, SpO2 of 100% on room air, and blood pressure is 86/53. GENERAL: Somnolent elderly male, in no obvious distress. Afebrile. Acyanotic and anicteric. HEENT: Normocephalic and atraumatic. Oral mucosa is dry. NECK: Supple with no obvious JVD. CARDIOVASCULAR: Regular rhythm and rate with normal heart sounds 1 and 2. RESPIRATORY: Fair air entry bilaterally with few transmitted breath sounds. No obvious rhonchi or use of accessory muscles appreciated. GI: Full, soft, nondistended with hypoactive bowel sounds. EXTREMITIES: Grossly normal looking with no obvious edema or erythema. SKIN: Rather dry with no erythema or cyanosis. LABORATORY CUREMAN: The patient is somnolent. Attempts to wake up with stimulation. Moves extremities to pain. DIAGNOSTIC DATA: Initial CBC on presentation showed WBC count of 18.2, hemoglobin of 12.5, MCV of 89.9, platelet of 181. Coagulation panel showed PT 17.5, INR 1.4, and PTT 28.1. Arterial blood gas showed pH of 7.26, pCO2 of 25.9, pO2 of 91.7. Ionized calcium of 1.29. This was done on room air. Initial chemistry showed sodium greater than 175, potassium 4.0, chloride greater than 145, CO2 of 10, BUN 151, creatinine 4.34, glucose 198, calcium 8.3, total bilirubin 0.5, AST 42, ALT 62, alkaline phosphatase 75, total protein 6.6, albumin 2.9. Creatine kinase performed prior to transfer at [facility] showed 1128. Earlier on in the day at [place], the patient is noted to have the following chemistry, sodium greater than 175, chloride greater than 145, CO2 of 14, BUN 150, creatinine 5.22, glucose 442, calcium 8.6, bilirubin 0.5, AST 50, ALT 70, alkaline phosphatase 79, total protein 6.3, albumin 3.1. Urinalysis performed earlier today at [facility] showed dark yellow urine with pH of 5.0, specific gravity of 1.025, positive protein, glucose more than or equal to 1000, trace ketone, large blood, negative nitrite, small bilirubin, leukocyte esterase was positive. Microscopy showed 4-6 rbc and no wbc. Of note, on September 28, creatinine was 0.83. ASSESSMENT: 1. Acute renal failure: Due to hemodynamic factors related to severe volume depletion from poor oral intake as well as use of diuretics as well as medications. The patient was on lisinopril and Bactrim DS. 2. Severe hypernatremia: Due to volume depletion with excess free water deficit. 3. Severe hyperchloremia. 4. Severe metabolic acidosis, both high anion gap and hyperchloremic. 5. Rhabdomyolysis with CPK more than 1000. 6. Encephalopathy: Most likely due to uremic encephalopathy superimposed on dementia. 7. Hypotension: Due to volume depletion with use of antihypertensives. PLAN: 1. Volume resuscitation with crystalloids to be followed by hypotonic solution containing sodium bicarbonate. We will start D5 plus 50 mEq of sodium bicarbonate to run at 200 mL/h. We will also start free water flushes via NG tube 200 mL every 4 hours. 2. We will hold all nephrotoxic agents including metformin, lisinopril, diuretics, and Bactrim. 3. We will also get urine electrolytes as well as CPK in the morning. We will follow serial electrolytes and renal function. Further treatment to follow depending on hospital course and review of other diagnostic tests. Many thanks for involving us in the care of this patient. We will follow along with you. Job ID: [id number]
--- NOTE | 2020-10-20 07:49 | RAD ---
XR Chest 1 View Portable HISTORY: Leukocytosis. Evaluation for aspiration. COMPARISON: 10/18/2020 exam. FINDINGS: Heart size is within normal limits. There are atherosclerotic changes of the aorta. An NG t ube is present with the tip within the stomach. The lungs are clear of infiltrates. IMPRESSION: No active intrathoracic disease.
--- NOTE | 2020-10-20 07:59 | PRG ---
DATE OF SERVICE: 10/20/2020 SUBJECTIVE: The patient remains in the ICU for treatment of severe hypernatremia. He is on no vasopressors. He is currently on sodium bicarbonate drip at 200 mL/h, D5W with 50 mEq of sodium bicarbonate. OBJECTIVE: GENERAL: On exam, he is obtunded. VITAL SIGNS: His temperature 99.6, pulse 78, blood pressure 140/70, O2 saturation 100%. HEENT: Unremarkable. NECK: No JVD. LUNGS: Clear anteriorly. CARDIAC: S1 and S2, regular. ABDOMEN: Soft. EXTREMITIES: No edema. LABORATORY DATA: Sodium 155, potassium 3.1, chloride 133, CO2 of 15, BUN 55, creatinine 1.9, glucose 179. CK is 2224. White blood cell count 9.4, hematocrit 29.5, and platelet count 120. ASSESSMENT: 1. Rhabdomyolysis. 2. Severe hypernatremia. 3. Metabolic acidosis. PLAN: The Nephrology Service is following the patient and is managing the IV fluids. His sodium seems to be falling at an appropriate rate. He is empirically on some antibiotics, but so far the cultures have remained sterile. At the current time, there is really nothing with this gentleman that cannot be managed on the floor. I would suggest transferring him to the telemetry floor and continue present care. Job ID: [id number]
[2020-10-20] MEDS ORDERED: Vancomycin HCl 500 MG in Sodium Chloride 0.9% 100 ML IVPB SCH (08:00)
[2020-10-20] MEDS: Lactated Ringer's 1,000 ML IV SCH ×2 (08:28→17:34)
[2020-10-20] MEDS ORDERED: Potassium Bicarbonate/Cit Ac 20 MEQ TAB PER TUBE SCH (08:30)
[2020-10-20] MEDS: Famotidine/PF 20 mg/2ml Vial SLOW IVP SCH (08:35)
[2020-10-20] MEDS: Heparin 5,000 UNITS/ML VIAL SC SCH ×2 (08:35→21:42)
[2020-10-20] MEDS: Aspirin Chewable 81 MG TAB PER TUBE SCH (08:35)
[2020-10-20] MEDS ORDERED: Aspirin 81 mg Enteric Coated Tablet PER TUBE SCH (09:00)
[2020-10-20] MEDS: Timolol 0.25% Ophth Soln 5 ml Bottle EA EYE SCH ×2 (09:27→21:27)
--- NOTE | 2020-10-20 13:50 | PDOC.NEPPN ---
- Subjective Encounter Date: 10/20/20 Subjective: Still somnolent. Moves with stimulation. Non verbal - Objective Vital Signs & Weight: Vital Signs (12 hours) Temp Pulse Ox 10/20/20 12:00 99.9 F H 10/20/20 08:00 100.3 F H 100 10/20/20 04:00 99.6 F Weight Admit Weight 138 lb Weight 139 lb 5.314 oz Most Recent Monitor Data Heart Rate from ECG 82 NIBP 148/78 NIBP BP-Mean 101 Respiration from ECG 28 SpO2 100 I&O: 10/19/20 10/20/20 10/21/20 06:59 06:59 06:59 Intake Total 3300 9782 1777 Output Total 980 2960 860 Balance 2320 6881 917 Result Diagrams: 10/20/20 03:40 10/20/20 03:40 Additional Labs: Accuchecks 10/20/20 10/20/20 10/20/20 12:26 06:36 00:13 POC Glucose 144 H 181 H 153 H 10/19/20 18:02 POC Glucose 160 H Nephrology ROS - Medication Medications: Active Medications Generic Name Dose Route Start Last Admin Trade Name Freq PRN Reason Stop Dose Admin Aspirin 81 mg 10/20/20 09:00 10/20/20 08:35 Aspirin Chewable 81 Mg Tab PER TUBE 81 mg DAILY ALTAGRACIA Administration Famotidine 20 mg 10/19/20 09:00 10/20/20 08:35 Famotidine/Pf 20 Mg/2ml Vial SLOW IVP 20 mg DAILY ALTAGRACIA Administration Folic Acid 1 mg 10/19/20 21:00 10/19/20 20:51 Folic Acid 1 Mg Tab PER TUBE 1 mg HS ALTAGRACIA Administration Heparin Sodium (Porcine) 5,000 units 10/18/20 21:00 10/20/20 08:35 Heparin 5,000 Units/Ml Vial SC 5,000 units BID ALTAGRACIA Administration Sodium Chloride 1,000 mls @ 999 mls/hr 10/19/20 01:00 10/19/20 00:52 Normal Saline 0.9% IV 10/19/20 02:00 1,000 mls .Q1H1M ALTAGRACIA Administration Lactated Ringer's 1,000 mls @ 100 mls/hr 10/19/20 11:45 10/20/20 08:28 Lactated Ringer's IV 1,000 mls .Q10H ALTAGRACIA Administration Meropenem 500 mg/ Sodium 100 mls @ 200 mls/hr 10/19/20 17:00 10/20/20 04:29 Chloride IVPB 100 mls 0500,1700 ALTAGRACIA Administration Vancomycin HCl 500 mg/ Sodium 100 mls @ 100 mls/hr 10/20/20 08:00 10/20/20 08:27 Chloride IVPB 100 mls 0800 ALTAGRACIA Administration Influenza Virus Vaccine Quadrival 240 mcg 10/19/20 09:00 10/19/20 10:32 Flu Vacc [id number](65yr Up)/Pf 240 Mcg/0.7 Ml Syringe IM 10/19/20 09:01 Not Given .ONCE ONE Insulin Human Regular 0 units 10/19/20 11:50 10/20/20 06:43 Insulin Regular 300 Units/3 Ml Vial SC 2 unit .MODERATE SLIDING SC PRN Administration Moderate Correctional Scale Latanoprost 1 drop 10/19/20 21:00 10/19/20 20:52 Latanoprost 0.005% Ophth Soln 2.5 Ml Bottle EA EYE 1 drop HS ALTAGRACIA Administration Multivitamins 1 tab 10/19/20 21:00 10/19/20 20:51 Multivit, Therapeutic 1 Tab PER TUBE 1 tab HS ALTAGRACIA Administration Sodium Bicarbonate 50 meq 10/19/20 01:15 10/19/20 10:32 Sodium Bicarb 50 Meq/50 Ml Abboject 8.4% Syringe IVP 10/19/20 03:15 Not Given NOW ALTAGRACIA Thiamine HCl 100 mg 10/19/20 21:00 10/19/20 20:51 Thiamine 100 Mg Tab PER TUBE 100 mg HS ALTAGRACIA Administration - Exam General Appearance: awake alert General - other findings: ssonolent Eye: anicteric sclera ENT: normocephalic atraumatic Neck: symmetric Respiratory - other findings: fair air entry bilaterally with some transmitted sound. no distress Cardiovascular: RRR Gastrointestinal: soft, non-distended Extremities - other findings: trace to mild edema of the hands Neurological - other findings: somnolent Nephrology Results - Labs Result Diagrams: 10/20/20 03:40 10/20/20 03:40 Lab results: WBC 9.4 thou/uL (4.8-10.8) 10/20/20 03:40 Hgb 9.5 g/dL (14.0-18.0) L 10/20/20 03:40 Hct 29.5 % (42.0-52.0) L 10/20/20 03:40 MCV 85.4 fL (78.0-98.0) 10/20/20 03:40 Plt Count 120 thou/uL (130-400) L 10/20/20 03:40 Neutrophils % 85.0 % (42.0-75.0) H 10/18/20 17:14 Band Neuts % (Manual) 16 % (5-11) H 10/20/20 03:40 ABG pH 7.26 (7.35-7.45) L 10/18/20 17:20 ABG pCO2 25.9 mmHg (35.0-45.0) L* 10/18/20 17:20 ABG pO2 91.7 mmHg (> 60.0) H 10/18/20 17:20 Sodium 155 mmol/L (136-145) H 10/20/20 03:40 Potassium 3.1 mmol/L (3.5-5.1) L 10/20/20 03:40 Chloride 133 mmol/L (98-107) H* 10/20/20 03:40 Carbon Dioxide 15 mmol/L (23-31) L 10/20/20 03:40 BUN 55 mg/dL (8.4-25.7) H 10/20/20 03:40 Creatinine 1.99 mg/dL (0.7-1.3) H 10/20/20 03:40 Glucose 179 mg/dL (83-110) H 10/20/20 03:40 Lactic Acid 1.7 mmol/L (0.5-2.2) 10/20/20 03:40 Calcium 7.1 mg/dL (7.8-10.44) L 10/20/20 03:40 Total Bilirubin 0.5 mg/dL (0.2-1.2) 10/20/20 03:40 AST 42 U/L (5-34) H 10/20/20 03:40 ALT 41 U/L (8-55) 10/20/20 03:40 Alkaline Phosphatase 64 U/L (40-110) 10/20/20 03:40 Creatine Kinase 2224 U/L (30-200) H 10/20/20 03:40 Troponin I 0.278 ng/mL (< 0.028) H 10/18/20 19:21 Serum Total Protein 5.2 g/dL (5.8-8.1) L 10/20/20 03:40 Albumin 2.4 g/dL (3.4-4.8) L 10/20/20 03:40 Sodium 155 mmol/L (136-145) H 10/20/20 03:40 Potassium 3.1 mmol/L (3.5-5.1) L 10/20/20 03:40 Chloride 133 mmol/L (98-107) H* 10/20/20 03:40 Carbon Dioxide 15 mmol/L (23-31) L 10/20/20 03:40 Anion Gap 10 mmol/L (10-20) 10/20/20 03:40 BUN 55 mg/dL (8.4-25.7) H 10/20/20 03:40 Creatinine 1.99 mg/dL (0.7-1.3) H 10/20/20 03:40 Glucose 179 mg/dL (83-110) H 10/20/20 03:40 Calcium 7.1 mg/dL (7.8-10.44) L 10/20/20 03:40 Phosphorus 2.5 mg/dL (2.3-4.7) 10/20/20 03:40 Magnesium 1.9 mg/dL (1.6-2.6) 10/20/20 03:40 Albumin 2.4 g/dL (3.4-4.8) L 10/20/20 03:40 Nephrology AP PN - Plan Acute renal failure with marked azotemia: Due to hemodynamic factors related to severe dehydration, and bactrim and lisinopril use, and rhabdomyolysis. Severe dehydration with hypernatremia: Due to excess free water deficit in exces s of dehydration from poor oral intake and diuretic use. Severe metabolic acidosis: 2/2 Acute renal failure and metformin use. Rhabdomyolysis Encephalopathy.Due to ARF and electrolyte derangement superimposed on dementia Hypokalemia Hx of HTN Hx of Dementia PLAN DC D5W. Increase free water flushes by NG tube from 200 cc every 2 hours to 300 cc every 2 hours. Continue LR at 100 cc/hr Start alkali therapy viaNG tube Avoid nehrotoxic agents including metformin, lisinopril and diuretics. Get repeat CK in the am. Other treatments as per primary attending.
[2020-10-20 14:21] LABS: Anion Gap 12 mmol/L (10-20); BUN (Urea Nitrogen) 46 mg/dL (8.4-25.7); Calc. Creatinine Clearance 31 mL/min (70-130); Calcium 7.5 mg/dL (7.8-10.44); Carbon Dioxide 19 mmol/L (23-31); Glucose 132 mg/dL (83-110); Potassium 3.9 mmol/L (3.5-5.1); Sodium 157 mmol/L (136-145)
[2020-10-20 15:31] LABS: Chloride 130 mmol/L (98-107)
--- NOTE | 2020-10-20 17:45 | PDOC.HOSPP ---
- Subjective Encounter Date: 10/20/20 Encounter Time: 09:30 non-verbal Subjective: Patient seen and examined for encephalopathy which is slowly improving. No overnight events. - Objective Vital Signs & Weight: Vital Signs (12 hours) Temp Pulse Pulse BP BP Pulse Ox Pulse Ox 10/20/20 16:00 98.6 F 10/20/20 15:28 93 92 136/65 124/56 L 98 10/20/20 12:00 99.9 F H 10/20/20 08:15 100 10/20/20 08:00 100.3 F H 100 Pulse Ox 10/20/20 16:00 10/20/20 15:28 100 10/20/20 12:00 10/20/20 08:15 10/20/20 08:00 Weight Admit Weight 138 lb Weight 139 lb 5.314 oz Most Recent Monitor Data Heart Rate from ECG 81 NIBP 127/70 NIBP BP-Mean 89 Respiration from ECG 27 SpO2 98 I&O: 10/19/20 10/20/20 10/21/20 06:59 06:59 06:59 Intake Total 3300 9782 2617 Output Total 980 2960 1375 Balance 2320 6822 1242 Result Diagrams: 10/20/20 03:40 10/20/20 13:53 Additional Labs: Accuchecks 10/20/20 10/20/20 10/20/20 12:26 06:36 00:13 POC Glucose 144 H 181 H 153 H 10/19/20 18:02 POC Glucose 160 H Abnormal Lab Results - Last 48 hrs 10/18/20 17:14: Sodium Greater than 175 H*, Chloride Greater than 145 H*, Carbon Dioxide 10 L, BUN 151 H, Creatinine 4.34 H, AST 42 H, ALT 62 H, Albumin 2.9 L, Globulin 3.7 H, Albumin/Globulin Ratio 0.8 L 10/18/20 17:53: Lactic Acid 3.3 H 10/18/20 19:21: Sodium Greater than 175 H*, Chloride Greater than 145 H*, Carbon Dioxide 13 L, BUN 125 H, Creatinine 4.20 H, Magnesium 3.1 H, AST 42 H, ALT 63 H, Albumin 3.0 L, Globulin 3.6 H, Albumin/Globulin Ratio 0.8 L 10/18/20 19:21: WBC 18.5 H, Hgb 13.3 L, MCHC 31.3 L, RDW 15.4 H, MPV 10.6 H, Neutrophils % (Manual) 82 H, Lymphocytes % (Manual) 6 L 10/18/20 19:21: Troponin I 0.278 H 10/18/20 20:19: PT 17.5 H 10/18/20 23:14: Sodium Greater than 175 H*, Chloride Greater than 145 H*, Carbon Dioxide 14 L, BUN 118 H, Creatinine 3.90 H 10/18/20 : U Random Total Protein 31 H 10/19/20 05:25: Sodium Greater than 175 H*, Potassium 3.2 L, Chloride Greater than 145 H*, Carbon Dioxide 13 L, BUN 115 H, Creatinine 3.51 H, Calcium 7.5 L 10/19/20 11:30: Sodium 170 H*, Potassium 3.3 L, Chloride 145 H*, Carbon Dioxide 15 L, BUN 96 H, Creatinine 3.05 H, Calcium 7.5 L 10/19/20 15:04: Sodium 168 H*, Potassium 3.3 L, Chloride 143 H*, Carbon Dioxide 15 L, BUN 82 H, Creatinine 2.54 H, Calcium 7.4 L 10/19/20 21:08: Creatine Kinase 2640 H 10/19/20 21:08: Sodium 162 H*, Potassium 3.1 L, Chloride 137 H*, Carbon Dioxide 16 L, BUN 71 H, Creatinine 2.25 H, Calcium 7.3 L 10/20/20 03:40: Sodium 155 H, Potassium 3.1 L, Chloride 133 H*, Carbon Dioxide 15 L, BUN 55 H, Creatinine 1.99 H, Calcium 7.1 L, AST 42 H, Serum Total Protein 5.2 L, Albumin 2.4 L, Albumin/Globulin Ratio 0.9 L 10/20/20 03:40: RBC 3.46 L, Hgb 9.5 L, Hct 29.5 L, Plt Count 120 L, MPV 10.5 H, Band Neuts % (Manual) 16 H, Lymphocytes % (Manual) 17 L 10/20/20 03:40: Creatine Kinase 2224 H 10/20/20 13:53: Sodium 157 H, Chloride 130 H*, Carbon Dioxide 19 L, BUN 46 H, Creatinine 1.72 H, Calcium 7.5 L Microbiology - Entire Visit 10/18/[address] catheter Urine Culture - Final NO GROWTH AT 36 HOURS 10/18/20 19:21 Venous blood - Right Arm Blood Culture - Preliminary NO GROWTH AT 48 HOURS 10/18/20 19:21 Venous blood - Right Hand Blood Culture - Preliminary NO GROWTH AT 48 HOURS Radiology Reviewed by me: Yes (Chest x-rayno new infiltrate) EKG Reviewed by me: Yes (Sinus rhythm on telemetry) Hospitalist ROS - Review of Systems ROS unobtainable: due to mental status - Medication Medications: Active Medications Generic Name Dose Route Start Last Admin Trade Name Freq PRN Reason Stop Dose Admin Aspirin 81 mg 10/20/20 09:00 10/20/20 08:35 Aspirin Chewable 81 Mg Tab PER TUBE 81 mg DAILY ALTAGRACIA Administration Famotidine 20 mg 10/19/20 09:00 10/20/20 08:35 Famotidine/Pf 20 Mg/2ml Vial SLOW IVP 20 mg DAILY ALTAGRACIA Administration Folic Acid 1 mg 10/19/20 21:00 10/19/20 20:51 Folic Acid 1 Mg Tab PER TUBE 1 mg HS ALTAGRACIA Administration Heparin Sodium (Porcine) 5,000 units 10/18/20 21:00 10/20/20 08:35 Heparin 5,000 Units/Ml Vial SC 5,000 units BID ALTAGRACIA Administration Sodium Chloride 1,000 mls @ 999 mls/hr 10/19/20 01:00 10/19/20 00:52 Normal Saline 0.9% IV 10/19/20 02:00 1,000 mls .Q1H1M ALTAGRACIA Administration Lactated Ringer's 1,000 mls @ 100 mls/hr 10/19/20 11:45 10/20/20 17:34 Lactated Ringer's IV 1,000 mls .Q10H ALTAGRACIA Administration Meropenem 500 mg/ Sodium 100 mls @ 200 mls/hr 10/19/20 17:00 10/20/20 17:34 Chloride IVPB 100 mls 0500,1700 ALTAGRACIA Administration Vancomycin HCl 500 mg/ Sodium 100 mls @ 100 mls/hr 10/20/20 08:00 10/20/20 08:27 Chloride IVPB 100 mls 0800 ALTAGRACIA Administration Influenza Virus Vaccine Quadrival 240 mcg 10/19/20 09:00 10/19/20 10:32 Flu Vacc [id number](65yr Up)/Pf 240 Mcg/0.7 Ml Syringe IM 10/19/20 09:01 Not Given .ONCE ONE Insulin Human Regular 0 units 10/19/20 11:50 10/20/20 06:43 Insulin Regular 300 Units/3 Ml Vial SC 2 unit .MODERATE SLIDING SC PRN Administration Moderate Correctional Scale Latanoprost 1 drop 10/19/20 21:00 10/19/20 20:52 Latanoprost 0.005% Ophth Soln 2.5 Ml Bottle EA EYE 1 drop HS ALTAGRACIA Administration Multivitamins 1 tab 10/19/20 21:00 10/19/20 20:51 Multivit, Therapeutic 1 Tab PER TUBE 1 tab HS ALTAGRACIA Administration Sodium Bicarbonate 50 meq 10/19/20 01:15 10/19/20 10:32 Sodium Bicarb 50 Meq/50 Ml Abboject 8.4% Syringe IVP 10/19/20 03:15 Not Given NOW ALTAGRACIA Thiamine HCl 100 mg 10/19/20 21:00 10/19/20 20:51 Thiamine 100 Mg Tab PER TUBE 100 mg HS ALTAGRACIA Administration Timolol Maleate 1 drop 10/20/20 09:00 10/20/20 09:27 Timolol 0.25% Ophth Soln 5 Ml Bottle EA EYE 1 drop BID ALTAGRACIA Administration Hospitalist Exam Vitals: Vital Signs (12 hours) Temp Pulse Pulse BP BP Pulse Ox Pulse Ox 10/20/20 16:00 98.6 F 10/20/20 15:28 93 92 136/65 124/56 L 98 10/20/20 12:00 99.9 F H 10/20/20 08:15 100 10/20/20 08:00 100.3 F H 100 Pulse Ox 10/20/20 16:00 10/20/20 15:28 100 10/20/20 12:00 10/20/20 08:15 10/20/20 08:00 Weight Admit Weight 138 lb Weight 139 lb 5.314 oz Most Recent Monitor Data Heart Rate from ECG 81 NIBP 127/70 NIBP BP-Mean 89 Respiration from ECG 27 SpO2 98 General Appearance: awake alert Heart: RRR, no gallops, no rubs, normal peripheral pulses Respiratory: no wheezes, no rales, no ronchi, normal chest expansion Gastrointestinal: soft, non-distended, normal bowel sounds, no guarding, no rigidity Extremities: no cyanosis Neurological - other findings: Neuro/psychexam limited due to current mentation Psychiatric: lethargic Hosp A/P (1) Toxic metabolic encephalopathy Code(s): G92 - TOXIC ENCEPHALOPATHY Status: Acute (2) Hyperosmolality and hypernatremia Code(s): E87.0 - HYPEROSMOLALITY AND HYPERNATREMIA Status: Acute (3) [id number] kidney injury Code(s): N17.9 - ACUTE KIDNEY FAILURE, UNSPECIFIED; N18.9 - CHRONIC KIDNEY DISEASE, UNSPECIFIED Status: Acute Qualifiers: Chronic kidney disease stage: stage 2 (mild) (4) Metabolic acidosis Code(s): E87.2 - ACIDOSIS Status: Acute (5) Rhabdomyolysis Code(s): M62.82 - RHABDOMYOLYSIS Status: Acute (6) Dehydration Code(s): E86.0 - DEHYDRATION Status: Acute (7) Sepsis Code(s): A41.9 - SEPSIS, UNSPECIFIED ORGANISM Status: Suspected (8) Lactic acidosis Code(s): E87.2 - ACIDOSIS Status: Acute (9) Diabetes mellitus Code(s): E11.9 - TYPE 2 DIABETES MELLITUS WITHOUT COMPLICATIONS Status: Chronic Qualifiers: Chronic kidney disease stage: stage 2 (mild) (10) HLD (hyperlipidemia) Code(s): E78.5 - HYPERLIPIDEMIA, UNSPECIFIED Status: Chronic (11) HTN (hypertension) Code(s): I10 - ESSENTIAL (PRIMARY) HYPERTENSION Status: Chronic (12) Alzheimer's dementia Code(s): G30.9 - ALZHEIMER'S DISEASE, UNSPECIFIED; F02.80 - DEMENTIA IN OTH DISEASES CLASSD ELSWHR W/O BEHAVRL DISTURB Status: Chronic (13) Hypokalemia Code(s): E87.6 - HYPOKALEMIA Status: Acute (14) Swallowing dysfunction Code(s): R13.10 - DYSPHAGIA, UNSPECIFIED Status: Acute (15) Sacral decubitus ulcer, stage II Code(s): L89.152 - PRESSURE ULCER OF SACRAL REGION, STAGE 2 Status: Chronic (16) BPH (benign prostatic hyperplasia) Code(s): N40.0 - BENIGN PROSTATIC HYPERPLASIA WITHOUT LOWER URINRY TRACT SYMP Status: Chronic - Plan 80-year-old male with dementia, hypertension and swallowing dysfunction currently on modified diet presents to the emergency room at [facility] on 10/18 with altered mentation and poor oral intake of 3 days duration. His blood sugar per EMS was less than 50. He received D50 by EMS and was started on IV fluids with dextrose. His temperature by EMS was around 96 with mild tachypnea. In the emergency room his work-up was consistent with leukocytosis with WBC 14.4 with left shift, sodium greater than 175, bicarb 14,lactic acid 3.3, BUN 150 with creatinine of 5.22, CK 1128 with blood glucose of 442 on the BMP. He received 10 units of IV insulin, vancomycin, cefepime along with IV fluids and was transferred to intensive care unit for hospital admission. Plan: Hemodynamically stable. Urine output improving. Creatinine 1.99 this morning. Chest x-ray negative for infiltrate. Will continue empiric antibiotics. Discontinue D5 water. Continue lactated Ringer. Continue DVT and GI prophylaxis. Patient has thrombocytopenia which will be monitored. Continue sliding scale. Continue tube feeding through NG. Monitor CK. Discontinue vancomycin. Will transfer to telemetry. The DPOA requested PEG tube placement prior to discharge. Will consult GI and when patient is stable. Potassium level improving lactic acid normalized. CK level improving.
[2020-10-20] MEDS: Folic Acid 1 MG TAB PER TUBE SCH (21:26)
[2020-10-20] MEDS: Thiamine 100 MG TAB PER TUBE SCH (21:26)
[2020-10-20] MEDS: Multivit, Therapeutic 1 TAB PER TUBE SCH (21:26)
[2020-10-20] MEDS: Latanoprost 0.005% Ophth Soln 2.5 ml Bottle EA EYE SCH (21:27)
[2020-10-21] MEDS: Insulin Regular 300 UNITS/3 ML VIAL SC PRN ×2 (01:19→15:24)
[2020-10-21] MEDS: Lactated Ringer's 1,000 ML IV SCH (04:36)
[2020-10-21] MEDS: Meropenem 500 MG in Sodium Chloride 0.9% 100 ML IVPB SCH ×2 (04:53→18:00)
[2020-10-21 07:32] LABS: Hemoglobin 10.4 g/dL (14.0-18.0); Mean Corpuscular HGB CONC 31.4 g/dL (32.0-36.0); Mean Corpuscular Hemoglobin 26.6 pg (27.0-31.0); Mean Corpuscular Volume 84.7 fL (78.0-98.0); Mean Platelet Volume 10.7 fL (7.4-10.4); Platelet Count 115 thou/uL (130-400); RBC Distribution Width 14.4 % (11.5-14.5); Red Blood Cell (RBC) Count 3.89 mill/uL (4.70-6.10); White Blood Cell (WBC) Count 9.5 thou/uL (4.8-10.8)
[2020-10-21 07:43] LABS: Band 7 % (5-11); Eosinophils 1 % (0-10); Lymphocytes 12 % (21-51); MDiff Complete? YES; Monocytes 1 % (0-10); Neutrophil 77 % (42-75); Platelet Morphology Comment Appears Decreased; Polychromasia SLIGHT = 2-3 cells (100X) (0-2/hpf); Reactive Lymphocytes 2 % (0-10)
[2020-10-21 08:01] LABS: Anion Gap 10 mmol/L (10-20); BUN (Urea Nitrogen) 34 mg/dL (8.4-25.7); CK (CPK) 1176 U/L (30-200); Calc. Creatinine Clearance 33 mL/min (70-130); Calcium 7.5 mg/dL (7.8-10.44); Carbon Dioxide 22 mmol/L (23-31); Chloride 130 mmol/L (98-107); Glucose 143 mg/dL (83-110); Magnesium 2.1 mg/dL (1.6-2.6); Phosphorus 1.7 mg/dL (2.3-4.7); Potassium 4.3 mmol/L (3.5-5.1); Sodium 158 mmol/L (136-145)
[2020-10-21] MEDS ORDERED: Potassium Phosphate 30 MMOL in Sodium Chloride 0.9% 250 ML 250 ML IVPB SCH (08:30)
[2020-10-21] MEDS ORDERED: Ergocalciferol 1.25 MG(50,000 UNITS) CAP PO SCH (09:00)
--- NOTE | 2020-10-21 10:01 | PDOC.NEPPN ---
- Subjective Encounter Date: 10/21/20 Subjective: Seen and examined. More awake today. Non conversational though. - Objective Vital Signs & Weight: Vital Signs (12 hours) Temp Pulse Resp BP Pulse Ox 10/21/20 09:08 99.2 F 87 22 H 129/61 98 10/21/20 04:00 100 F H 95 18 142/69 H 98 10/21/20 01:11 100 10/21/20 00:00 98.3 F Weight Admit Weight 138 lb Weight 139 lb 5.314 oz Most Recent Monitor Data Heart Rate from ECG 95 NIBP 135/59 NIBP BP-Mean 84 Respiration from ECG 26 SpO2 100 I&O: 10/20/20 10/21/20 10/22/20 06:59 06:59 06:59 Intake Total 9782 6696 Output Total 2960 2940 Balance 6822 3756 Result Diagrams: 10/21/20 07:16 10/21/20 07:16 Additional Labs: Accuchecks 10/21/20 10/21/20 10/20/20 05:48 00:53 18:06 POC Glucose 154 H 180 H 131 H 10/20/20 12:26 POC Glucose 144 H Nephrology ROS - Medication Medications: Active Medications Generic Name Dose Route Start Last Admin Trade Name Freq PRN Reason Stop Dose Admin Aspirin 81 mg 10/20/20 09:00 10/20/20 08:35 Aspirin Chewable 81 Mg Tab PER TUBE 81 mg DAILY ALTAGRACIA Administration Famotidine 20 mg 10/19/20 09:00 10/20/20 08:35 Famotidine/Pf 20 Mg/2ml Vial SLOW IVP 20 mg DAILY ALTAGRACIA Administration Folic Acid 1 mg 10/19/20 21:00 10/20/20 21:26 Folic Acid 1 Mg Tab PER TUBE 1 mg HS ALTAGRACIA Administration Heparin Sodium (Porcine) 5,000 units 10/18/20 21:00 10/20/20 21:42 Heparin 5,000 Units/Ml Vial SC 5,000 units BID ALTAGRACIA Administration Sodium Chloride 1,000 mls @ 999 mls/hr 10/19/20 01:00 10/19/20 00:52 Normal Saline 0.9% IV 10/19/20 02:00 1,000 mls .Q1H1M ALTAGRACIA Administration Meropenem 500 mg/ Sodium 100 mls @ 200 mls/hr 10/19/20 17:00 10/21/20 04:53 Chloride IVPB 100 mls 0500,1700 ALTAGRACIA Administration Influenza Virus Vaccine Quadrival 240 mcg 10/19/20 09:00 10/19/20 10:32 Flu Vacc [id number](65yr Up)/Pf 240 Mcg/0.7 Ml Syringe IM 10/19/20 09:01 Not Given .ONCE ONE Insulin Human Regular 0 units 10/19/20 11:50 10/21/20 01:19 Insulin Regular 300 Units/3 Ml Vial SC 2 unit .MODERATE SLIDING SC PRN Administration Moderate Correctional Scale Latanoprost 1 drop 10/19/20 21:00 10/20/20 21:27 Latanoprost 0.005% Ophth Soln 2.5 Ml Bottle EA EYE 1 drop HS ALTAGRACIA Administration Multivitamins 1 tab 10/19/20 21:00 10/20/20 21:26 Multivit, Therapeutic 1 Tab PER TUBE 1 tab HS ALTAGRACIA Administration Sodium Bicarbonate 50 meq 10/19/20 01:15 10/19/20 10:32 Sodium Bicarb 50 Meq/50 Ml Abboject 8.4% Syringe IVP 10/19/20 03:15 Not Given NOW ALTAGRACIA Thiamine HCl 100 mg 10/19/20 21:00 10/20/20 21:26 Thiamine 100 Mg Tab PER TUBE 100 mg HS ALTAGRACIA Administration Timolol Maleate 1 drop 10/20/20 09:00 10/20/20 21:27 Timolol 0.25% Ophth Soln 5 Ml Bottle EA EYE 1 drop BID ALTAGRACIA Administration - Exam General - other findings: awake. fatigued. no conversational ENT: normocephalic atraumatic, moist mucosa Neck: symmetric Respiratory - other findings: fair air entry bilateraly with caorse transmitted sound Cardiovascular: RRR Gastrointestinal: soft, non-tender, non-distended, normal bowel sounds Gastrointestinal - other findings: Villanueva catheter noted with mild paraphimosis which was reduced Extremities - other findings: trace to mild edema of the hands and feet. James>feet. Neurological - other findings: awake, non verbal. Nephrology Results - Labs Result Diagrams: 10/21/20 07:16 10/21/20 07:16 Lab results: WBC 9.5 thou/uL (4.8-10.8) 10/21/20 07:16 Hgb 10.4 g/dL (14.0-18.0) L 10/21/20 07:16 Hct 33.0 % (42.0-52.0) L 10/21/20 07:16 MCV 84.7 fL (78.0-98.0) 10/21/20 07:16 Plt Count 115 thou/uL (130-400) L 10/21/20 07:16 Neutrophils % 85.0 % (42.0-75.0) H 10/18/20 17:14 Band Neuts % (Manual) 7 % (5-11) 10/21/20 07:16 ABG pH 7.26 (7.35-7.45) L 10/18/20 17:20 ABG pCO2 25.9 mmHg (35.0-45.0) L* 10/18/20 17:20 ABG pO2 91.7 mmHg (> 60.0) H 10/18/20 17:20 Sodium 158 mmol/L (136-145) H 10/21/20 07:16 Potassium 4.3 mmol/L (3.5-5.1) 10/21/20 07:16 Chloride 130 mmol/L (98-107) H* 10/21/20 07:16 Carbon Dioxide 22 mmol/L (23-31) L 10/21/20 07:16 BUN 34 mg/dL (8.4-25.7) H 10/21/20 07:16 Creatinine 1.60 mg/dL (0.7-1.3) H 10/21/20 07:16 Glucose 143 mg/dL (83-110) H 10/21/20 07:16 Lactic Acid 1.7 mmol/L (0.5-2.2) 10/20/20 03:40 Calcium 7.5 mg/dL (7.8-10.44) L 10/21/20 07:16 Total Bilirubin 0.5 mg/dL (0.2-1.2) 10/20/20 03:40 AST 42 U/L (5-34) H 10/20/20 03:40 ALT 41 U/L (8-55) 10/20/20 03:40 Alkaline Phosphatase 64 U/L (40-110) 10/20/20 03:40 Creatine Kinase 1176 U/L (30-200) H 10/21/20 07:16 Troponin I 0.278 ng/mL (< 0.028) H 10/18/20 19:21 Serum Total Protein 5.2 g/dL (5.8-8.1) L 10/20/20 03:40 Albumin 2.4 g/dL (3.4-4.8) L 10/20/20 03:40 Sodium 158 mmol/L (136-145) H 10/21/20 07:16 Potassium 4.3 mmol/L (3.5-5.1) 10/21/20 07:16 Chloride 130 mmol/L (98-107) H* 10/21/20 07:16 Carbon Dioxide 22 mmol/L (23-31) L 10/21/20 07:16 Anion Gap 10 mmol/L (10-20) 10/21/20 07:16 BUN 34 mg/dL (8.4-25.7) H 10/21/20 07:16 Creatinine 1.60 mg/dL (0.7-1.3) H 10/21/20 07:16 Glucose 143 mg/dL (83-110) H 10/21/20 07:16 Calcium 7.5 mg/dL (7.8-10.44) L 10/21/20 07:16 Phosphorus 1.7 mg/dL (2.3-4.7) L 10/21/20 07:16 Magnesium 2.1 mg/dL (1.6-2.6) 10/21/20 07:16 Albumin 2.4 g/dL (3.4-4.8) L 10/20/20 03:40 Nephrology AP PN - Plan Acute renal failure with marked azotemia: Due to hemodynamic factors related to severe dehydration, and bactrim and lisinopril use, and rhabdomyolysis. Creat continue to trend down. Not at baseline however Severe dehydration with hypernatremia: Due to excess free water deficit in excess of dehydration from poor oral intake and diuretic use. Severe metabolic acidosis: 2/2 Acute renal failure and metformin use. Rhabdomyolysis: CK is trending down, Encephalopathy.Due to ARF and electrolyte derangement superimposed on dementia Hypokalemia Hx of HTN Hx of Dementia Hypophosphatemia Paraphimosis Vit D deficiency PLAN replete serum phosphorus with potassium phosphate Start vit D supplementation Substitute LR with 1/2 Ns given potassium phosphate supplementation with associated risk of hyperkalemia Continue oral alkali therapy Get CXR to assess volume status Continue free water flushes by NG tube 300 cc every 2 hours. Avoid nehrotoxic agents including metformin, lisinopril and diuretics. Other treatments as per primary attending.
[2020-10-21] MEDS ORDERED: Sodium Bicarbonate Tab 325 MG TAB PO SCH (10:15)
--- NOTE | 2020-10-21 10:27 | RAD ---
Exam: Chest one view HISTORY:Possible aspiration Comparison: 10/20/2020 FINDINGS: Cardiac silhouette:Stable cardiac silhouette Lines and tubes: Nasogastric tube terminates in the epigastric region. Aorta: Atherosclerosis Pulmonary vessels: Normal Costophrenic angles: Clear LUNGS: No masses or consolidation. Pneumothorax: None Osseous abnormalities: None IMPRESSION: 1. No acute cardiopulmonary process 2. Atherosclerosis
[2020-10-21] MEDS: Aspirin Chewable 81 MG TAB PER TUBE SCH (11:19)
[2020-10-21] MEDS: Famotidine/PF 20 mg/2ml Vial SLOW IVP SCH (11:20)
[2020-10-21] MEDS: Heparin 5,000 UNITS/ML VIAL SC SCH ×2 (11:21→22:24)
[2020-10-21] MEDS: Timolol 0.25% Ophth Soln 5 ml Bottle EA EYE SCH ×2 (11:22→22:23)
[2020-10-21] MEDS: Sodium Bicarbonate Tab 325 MG TAB PO SCH ×2 (15:15→22:23)
[2020-10-21] MEDS: Sodium Chloride 0.45% 1,000 ML IV SCH (15:23)
[2020-10-21] MEDS: Scopolamine 1.5 mg/72 hour Patch TD SCH (16:39)
--- NOTE | 2020-10-21 17:10 | PDOC.HOSPP ---
- Subjective Encounter Date: 10/21/20 Encounter Time: 11:30 Subjective: Patient seen and examined for encephalopathy. Mentation slightly better than yesterday. No new overnight events. Tolerating tube feeding. - Objective Vital Signs & Weight: Vital Signs (12 hours) Temp Pulse Resp BP Pulse Ox 10/21/20 15:20 99.2 F 87 20 158/93 H 100 10/21/20 09:08 99.2 F 87 22 H 129/61 98 Weight Admit Weight 138 lb Weight 139 lb 5.314 oz Most Recent Monitor Data Heart Rate from ECG 95 NIBP 135/59 NIBP BP-Mean 84 Respiration from ECG 26 SpO2 100 I&O: 10/20/20 10/21/20 10/22/20 06:59 06:59 06:59 Intake Total 9782 6696 837 Output Total 2960 2940 950 Balance 6822 3756 -113 Result Diagrams: 10/21/20 07:16 10/21/20 07:16 Additional Labs: Accuchecks 10/21/20 10/21/20 10/21/20 12:33 05:48 00:53 POC Glucose 209 H 154 H 180 H 10/20/20 18:06 POC Glucose 131 H Abnormal Lab Results - Last 48 hrs 10/19/20 11:30: Sodium 170 H*, Potassium 3.3 L, Chloride 145 H*, Carbon Dioxide 15 L, BUN 96 H, Creatinine 3.05 H, Calcium 7.5 L 10/19/20 21:08: Creatine Kinase 2640 H 10/19/20 21:08: Sodium 162 H*, Potassium 3.1 L, Chloride 137 H*, Carbon Dioxide 16 L, BUN 71 H, Creatinine 2.25 H, Calcium 7.3 L 10/20/20 03:40: Sodium 155 H, Potassium 3.1 L, Chloride 133 H*, Carbon Dioxide 15 L, BUN 55 H, Creatinine 1.99 H, Calcium 7.1 L, AST 42 H, Serum Total Protein 5.2 L, Albumin 2.4 L, Albumin/Globulin Ratio 0.9 L 10/20/20 03:40: RBC 3.46 L, Hgb 9.5 L, Hct 29.5 L, Plt Count 120 L, MPV 10.5 H, Band Neuts % (Manual) 16 H, Lymphocytes % (Manual) 17 L 10/20/20 03:40: Creatine Kinase 2224 H 10/20/20 13:53: Sodium 157 H, Chloride 130 H*, Carbon Dioxide 19 L, BUN 46 H, Creatinine 1.72 H, Calcium 7.5 L 10/21/20 07:16: Sodium 158 H, Chloride 130 H*, Carbon Dioxide 22 L, BUN 34 H, Creatinine 1.60 H, Calcium 7.5 L, Phosphorus 1.7 L, Creatine Kinase 1176 H 10/21/20 07:16: RBC 3.89 L, Hgb 10.4 L, Hct 33.0 L, MCH 26.6 L, MCHC 31.4 L, Plt Count 115 L, MPV 10.7 H, Neutrophils % (Manual) 77 H, Lymphocytes % (Manual) 12 L, Plt Morphology Comment Appears Decreased L 10/21/20 07:16: 25-OH Vitamin D Total 9.6 L Microbiology - Entire Visit 10/18/[address] catheter Urine Culture - Final NO GROWTH AT 36 HOURS 10/18/20 19:21 Venous blood - Right Arm Blood Culture - Preliminary NO GROWTH AT 48 HOURS 10/18/20 19:21 Venous blood - Right Hand Blood Culture - Preliminary NO GROWTH AT 48 HOURS Radiology Reviewed by me: Yes (Chest x-rayno new infiltrate) Hospitalist ROS - Review of Systems ROS unobtainable: due to mental status - Medication Medications: Active Medications Generic Name Dose Route Start Last Admin Trade Name Freq PRN Reason Stop Dose Admin Aspirin 81 mg 10/20/20 09:00 10/21/20 11:19 Aspirin Chewable 81 Mg Tab PER TUBE 81 mg DAILY ALTAGRACIA Administration Ergocalciferol 1.25 mg 10/21/20 09:00 10/21/20 11:20 Ergocalciferol 1.25 Mg(50,000 Units) Cap PO 1.25 mg Q7DAYS ALTAGRACIA Administration Famotidine 20 mg 10/19/20 09:00 10/21/20 11:20 Famotidine/Pf 20 Mg/2ml Vial SLOW IVP 20 mg DAILY ALTAGRACIA Administration Folic Acid 1 mg 10/19/20 21:00 10/20/20 21:26 Folic Acid 1 Mg Tab PER TUBE 1 mg HS ALTAGRACIA Administration Heparin Sodium (Porcine) 5,000 units 10/18/20 21:00 10/21/20 11:21 Heparin 5,000 Units/Ml Vial SC 5,000 units BID ALTAGRACIA Administration Sodium Chloride 1,000 mls @ 999 mls/hr 10/19/20 01:00 10/19/20 00:52 Normal Saline 0.9% IV 10/19/20 02:00 1,000 mls .Q1H1M ALTAGRACIA Administration Meropenem 500 mg/ Sodium 100 mls @ 200 mls/hr 10/19/20 17:00 10/21/20 04:53 Chloride IVPB 100 mls 0500,1700 ALTAGRACIA Administration Sodium Chloride 1,000 mls @ 100 mls/hr 10/21/20 10:00 10/21/20 15:23 1/2 Normal Saline IV 1,000 mls .Q10H ALTAGRACIA Administration Influenza Virus Vaccine Quadrival 240 mcg 10/19/20 09:00 10/19/20 10:32 Flu Vacc [id number](65yr Up)/Pf 240 Mcg/0.7 Ml Syringe IM 10/19/20 09:01 Not Given .ONCE ONE Insulin Human Regular 0 units 10/19/20 11:50 10/21/20 15:24 Insulin Regular 300 Units/3 Ml Vial SC 4 unit .MODERATE SLIDING SC PRN Administration Moderate Correctional Scale Latanoprost 1 drop 10/19/20 21:00 10/20/20 21:27 Latanoprost 0.005% Ophth Soln 2.5 Ml Bottle EA EYE 1 drop HS ALTAGRACIA Administration Multivitamins 1 tab 10/19/20 21:00 10/20/20 21:26 Multivit, Therapeutic 1 Tab PER TUBE 1 tab HS ALTAGRACIA Administration Scopolamine 1.5 mg 10/21/20 16:00 10/21/20 16:39 Scopolamine 1.5 Mg/72 Hour Patch TD 1.5 mg Q3D ALTAGRACIA Administration Sodium Bicarbonate 50 meq 10/19/20 01:15 10/19/20 10:32 Sodium Bicarb 50 Meq/50 Ml Abboject 8.4% Syringe IVP 10/19/20 03:15 Not Given NOW ALTAGRACIA Sodium Bicarbonate 650 mg 10/21/20 15:00 10/21/20 15:15 Sodium Bicarbonate Tab 325 Mg Tab PO 650 mg TID ALTAGRACIA Administration Thiamine HCl 100 mg 10/19/20 21:00 10/20/20 21:26 Thiamine 100 Mg Tab PER TUBE 100 mg HS ALTAGRACIA Administration Timolol Maleate 1 drop 10/20/20 09:00 10/21/20 11:22 Timolol 0.25% Ophth Soln 5 Ml Bottle EA EYE 1 drop BID ALTAGRACIA Administration Hospitalist Exam Vitals: Vital Signs (12 hours) Temp Pulse Resp BP Pulse Ox 10/21/20 15:20 99.2 F 87 20 158/93 H 100 10/21/20 09:08 99.2 F 87 22 H 129/61 98 Weight Admit Weight 138 lb Weight 139 lb 5.314 oz Most Recent Monitor Data Heart Rate from ECG 95 NIBP 135/59 NIBP BP-Mean 84 Respiration from ECG 26 SpO2 100 General Appearance: NAD Neck: supple, no JVD Heart: no gallops, no rubs Respiratory: no wheezes, no rales Gastrointestinal: soft, no guarding, no rigidity Extremities: no cyanosis Neurological - other findings: Neuro/psychexam limited due to current cognitive status Hosp A/P (1) Toxic metabolic encephalopathy Code(s): G92 - TOXIC ENCEPHALOPATHY Status: Acute (2) Hyperosmolality and hypernatremia Code(s): E87.0 - HYPEROSMOLALITY AND HYPERNATREMIA Status: Acute (3) Fjxmp-fo-wilvnur kidney injury Code(s): N17.9 - ACUTE KIDNEY FAILURE, UNSPECIFIED; N18.9 - CHRONIC KIDNEY DISEASE, UNSPECIFIED Status: Acute Qualifiers: Chronic kidney disease stage: stage 2 (mild) (4) Metabolic acidosis Code(s): E87.2 - ACIDOSIS Status: Acute (5) Rhabdomyolysis Code(s): M62.82 - RHABDOMYOLYSIS Status: Acute (6) Dehydration Code(s): E86.0 - DEHYDRATION Status: Acute (7) Sepsis Code(s): A41.9 - SEPSIS, UNSPECIFIED ORGANISM Status: Suspected (8) Lactic acidosis Code(s): E87.2 - ACIDOSIS Status: Acute (9) Diabetes mellitus Code(s): E11.9 - TYPE 2 DIABETES MELLITUS WITHOUT COMPLICATIONS Status: Chronic Qualifiers: Chronic kidney disease stage: stage 2 (mild) (10) HLD (hyperlipidemia) Code(s): E78.5 - HYPERLIPIDEMIA, UNSPECIFIED Status: Chronic (11) HTN (hypertension) Code(s): I10 - ESSENTIAL (PRIMARY) HYPERTENSION Status: Chronic (12) Alzheimer's dementia Code(s): G30.9 - ALZHEIMER'S DISEASE, UNSPECIFIED; F02.80 - DEMENTIA IN OTH DISEASES CLASSD ELSWHR W/O BEHAVRL DISTURB Status: Chronic (13) Hypokalemia Code(s): E87.6 - HYPOKALEMIA Status: Acute (14) Swallowing dysfunction Code(s): R13.10 - DYSPHAGIA, UNSPECIFIED Status: Acute (15) Sacral decubitus ulcer, stage II Code(s): L89.152 - PRESSURE ULCER OF SACRAL REGION, STAGE 2 Status: Chronic (16) BPH (benign prostatic hyperplasia) Code(s): N40.0 - BENIGN PROSTATIC HYPERPLASIA WITHOUT LOWER URINRY TRACT SYMP Status: Chronic - Plan 80-year-old male with dementia, hypertension and swallowing dysfunction currently on modified diet presents to the emergency room at [place] on 10/18 with altered mentation and poor oral intake of 3 days duration. His blood sugar per EMS was less than 50. He received D50 by EMS and was started on IV fluids with dextrose. His temperature by EMS was around 96 with mild tachypnea. In the emergency room his work-up was consistent with leukocytosis with WBC 14.4 with left shift, sodium greater than 175, bicarb 14,lactic acid 3.3, BUN 150 with creatinine of 5.22, CK 1128 with blood glucose of 442 on the BMP. He received 10 units of IV insulin, vancomycin, cefepime along with IV fluids and was transferred to intensive care unit for hospital admission. Assessment/plan: Acute metabolic encephalopathy due to electrolyte abnormality/AMY/metabolic acidosisimproving We will continue IV fluids per nephrology recommendation. Recheck labs in a.m. Will discontinue antibiotics since there is no obvious etiology identified. Renal function improving. Started on sodium bicarbonate Hypophosphatemia Patient received potassium phosphate this morning Vitamin D deficiency Patient was started on vitamin D supplementation Rhabdomyolysis. CK 1176 today. Continue IV fluids and recheck CK in a.m. Swallow dysfunction Will consult GI for PEG tube placement per family request Continue other medications as above. I attempted to call the DPOA Ms. Potter with no answer
[2020-10-21] MEDS: Thiamine 100 MG TAB PER TUBE SCH (22:23)
[2020-10-21] MEDS: Latanoprost 0.005% Ophth Soln 2.5 ml Bottle EA EYE SCH (22:23)
[2020-10-21] MEDS: Multivit, Therapeutic 1 TAB PER TUBE SCH (22:24)
[2020-10-21] MEDS: Folic Acid 1 MG TAB PER TUBE SCH (22:25)
[2020-10-22] MEDS: Sodium Chloride 0.45% 1,000 ML IV SCH (01:35)
--- NOTE | 2020-10-22 03:00 | PQF ---
CLINICAL DOCUMENTATION CLARIFICATION FORM: Dear Dr. DR. ALYSSA VERONICA Date: 10-22-20 Please exercise your independent, professional judgment in responding to the clarification form. Clinical indicators are provided on the bottom of this form for your review. Please check appropriate box(es) to clarify if the following diagnosis has been ruled in our ruled out: DKA [ ] Ruled in diagnosis [ ] Continue to treat [ ] Resolved [ x ] Ruled out diagnosis [ ] Other diagnosis [ ] Unable to determine In addition, please specify: Present on Admission (POA): [ ] Yes [ ] No [ ] Unable to determine For continuity of documentation, please document condition throughout progress notes and discharge summary. Thank You. To be completed by CDI/Coding staff for physician review: CLINICAL INDICATORS - SIGNS / SYMPTOMS / LABS / RESULTS AND LOCATION IN MR: CONSULT NOTE DR. LEIDY LAUREN 10-18-20: AMS, HYPERNATREMIA, ACUTE RENAL FAILURE, METABOLIC ACIDOSIS, UNCERTAIN ETIOLOGY, POSSIBLE DIABETIC KETOACIDOSIS, TRANSAMINITIS, POSSIBLE SHOCK LIVER, DECUBITUS ULCER WITH POSSIBLE SEPSIS FROM NH, POSSIBLE OBSTRUCTIVE UROPATHY. RISK FACTORS / RESULTS AND LOCATION IN MR: H&p 10-18-20: hx htn, type 2 dm, Alzheimer dementia TREATMENTS / RESULTS AND LOCATION IN MR: CONSULT NOTE DR. LEIDY LAUREN 10-18-20: EVALUATE WHETHER HE HAS DKA OR HHN. MONITORING LABS GLUCOSE: 10-18-20 TO 10-21-20 MAR: 10-19-20: MEROPENEM, POTASSIUM PHOSPHATE IVPB, SODIUM BICARBONATE CDS Signature: Loraine Sarah Phone #: [phone] Date: 10-22-20 This is a permanent part of the Medical Record [facility]
[2020-10-22 05:38] LABS: Anion Gap 12 mmol/L (10-20); BUN (Urea Nitrogen) 26 mg/dL (8.4-25.7); CK (CPK) 686 U/L (30-200); Calc. Creatinine Clearance 41 mL/min (70-130); Calcium 7.4 mg/dL (7.8-10.44); Carbon Dioxide 20 mmol/L (23-31); Glucose 204 mg/dL (83-110); Magnesium 1.9 mg/dL (1.6-2.6); Potassium 3.6 mmol/L (3.5-5.1); Sodium 155 mmol/L (136-145)
[2020-10-22 05:46] LABS: Chloride 127 mmol/L (98-107); Phosphorus 1.5 mg/dL (2.3-4.7)
[2020-10-22] MEDS: Insulin Regular 300 UNITS/3 ML VIAL SC PRN ×2 (06:13→11:16)
[2020-10-22 06:14] LABS: Band 14 % (5-11); Eosinophils 2 % (0-10); Hemoglobin 9.4 g/dL (14.0-18.0); Lymphocytes 15 % (21-51); MDiff Complete? YES; Mean Corpuscular HGB CONC 31.6 g/dL (32.0-36.0); Mean Corpuscular Hemoglobin 26.4 pg (27.0-31.0); Mean Corpuscular Volume 83.6 fL (78.0-98.0); Mean Platelet Volume 10.5 fL (7.4-10.4); Monocytes 3 % (0-10); Neutrophil 66 % (42-75); Platelet Count 110 thou/uL (130-400); Platelet Morphology Comment Appears Decreased; RBC Distribution Width 14.1 % (11.5-14.5); Red Blood Cell (RBC) Count 3.56 mill/uL (4.70-6.10); White Blood Cell (WBC) Count 11.2 thou/uL (4.8-10.8)
[2020-10-22] MEDS ORDERED: Potassium Phosphate 30 MMOL in Sodium Chloride 0.9% 250 ML 250 ML IVPB SCH (07:45)
[2020-10-22] MEDS: Aspirin Chewable 81 MG TAB PER TUBE SCH (09:26)
[2020-10-22] MEDS: Sodium Bicarbonate Tab 325 MG TAB PO SCH ×3 (09:26→19:46)
[2020-10-22] MEDS: Cyanocobalamin (Vitamin B-12) 1,000 MCG TAB PER TUBE SCH (09:26)
[2020-10-22] MEDS: Timolol 0.25% Ophth Soln 5 ml Bottle EA EYE SCH ×2 (09:27→19:48)
[2020-10-22] MEDS: Heparin 5,000 UNITS/ML VIAL SC SCH ×2 (09:39→19:46)
[2020-10-22] MEDS: Famotidine/PF 20 mg/2ml Vial SLOW IVP SCH (09:39)
[2020-10-22] MEDS ORDERED: Meropenem 1 GM in Sodium Chloride 0.9% 100 ML IVPB SCH (10:00)
--- NOTE | 2020-10-22 10:25 | PDOC.NEPPN ---
- Subjective Encounter Date: 10/22/20 Subjective: Seen and examined. Arousable but non conversational. - Objective Vital Signs & Weight: Vital Signs (12 hours) Temp Pulse Resp BP Pulse Ox 10/22/20 03:20 97.8 F 87 24 H 145/71 H 96 10/21/20 22:25 98.3 F 93 24 H 145/59 H 97 Weight Admit Weight 138 lb Weight 156 lb 14.4 oz Most Recent Monitor Data Heart Rate from ECG 95 NIBP 135/59 NIBP BP-Mean 84 Respiration from ECG 26 SpO2 100 I&O: 10/21/20 10/22/20 10/23/20 06:59 06:59 06:59 Intake Total 6696 4759 2200 Output Total 2940 1775 620 Balance 3756 2984 1580 Result Diagrams: 10/22/20 05:07 10/22/20 05:07 Additional Labs: Accuchecks 10/22/20 10/21/20 10/21/20 06:12 23:01 17:55 POC Glucose 162 H 149 H 114 H 10/21/20 12:33 POC Glucose 209 H Nephrology ROS - Medication Medications: Active Medications Generic Name Dose Route Start Last Admin Trade Name Freq PRN Reason Stop Dose Admin Aspirin 81 mg 10/20/20 09:00 10/22/20 09:26 Aspirin Chewable 81 Mg Tab PER TUBE 81 mg DAILY ALTAGRACIA Administration Cyanocobalamin 1,000 mcg 10/22/20 09:00 10/22/20 09:26 Cyanocobalamin (Vitamin B-12) 1,000 Mcg Tab PER TUBE 1,000 mcg DAILY ALTAGRACIA Administration Ergocalciferol 1.25 mg 10/21/20 09:00 10/21/20 11:20 Ergocalciferol 1.25 Mg(50,000 Units) Cap PO 1.25 mg Q7DAYS ALTAGRACIA Administration Famotidine 20 mg 10/19/20 09:00 10/22/20 09:39 Famotidine/Pf 20 Mg/2ml Vial SLOW IVP 20 mg DAILY ALTAGRACIA Administration Folic Acid 1 mg 10/19/20 21:00 10/21/20 22:25 Folic Acid 1 Mg Tab PER TUBE 1 mg HS ALTAGRACIA Administration Heparin Sodium (Porcine) 5,000 units 10/18/20 21:00 10/22/20 09:39 Heparin 5,000 Units/Ml Vial SC 5,000 units BID ALTAGRACIA Administration Sodium Chloride 1,000 mls @ 999 mls/hr 10/19/20 01:00 10/19/20 00:52 Normal Saline 0.9% IV 10/19/20 02:00 1,000 mls .Q1H1M ALTAGRACIA Administration Potassium Phosphate 30 mmol/ 260 mls @ 41.7 mls/hr 10/22/20 07:45 10/22/20 0 9:54 Sodium Chloride IVPB 10/22/20 14:00 260 mls NOW ALTAGRACIA Administration Influenza Virus Vaccine Quadrival 240 mcg 10/19/20 09:00 10/19/20 10:32 Flu Vacc [id number](65yr Up)/Pf 240 Mcg/0.7 Ml Syringe IM 10/19/20 09:01 Not Given .ONCE ONE Insulin Human Regular 0 units 10/19/20 11:50 10/22/20 06:13 Insulin Regular 300 Units/3 Ml Vial SC 2 unit .MODERATE SLIDING SC PRN Administration Moderate Correctional Scale Latanoprost 1 drop 10/19/20 21:00 10/21/20 22:23 Latanoprost 0.005% Ophth Soln 2.5 Ml Bottle EA EYE 1 drop HS ALTAGRACIA Administration Multivitamins 1 tab 10/19/20 21:00 10/21/20 22:24 Multivit, Therapeutic 1 Tab PER TUBE 1 tab HS ALTAGRACIA Administration Scopolamine 1.5 mg 10/21/20 16:00 10/21/20 16:39 Scopolamine 1.5 Mg/72 Hour Patch TD 1.5 mg Q3D ALTAGRACIA Administration Sodium Bicarbonate 50 meq 10/19/20 01:15 10/19/20 10:32 Sodium Bicarb 50 Meq/50 Ml Abboject 8.4% Syringe IVP 10/19/20 03:15 Not Given NOW ALTAGRACIA Sodium Bicarbonate 650 mg 10/21/20 15:00 10/22/20 09:26 Sodium Bicarbonate Tab 325 Mg Tab PO 650 mg TID ALTAGRACIA Administration Sodium Chloride 10 ml 10/22/20 09:00 10/22/20 09:27 Flush - Normal Saline 10 Ml Syringe IVF 10 ml Q12HR ALTAGRACIA Administration Thiamine HCl 100 mg 10/19/20 21:00 10/21/20 22:23 Thiamine 100 Mg Tab PER TUBE 100 mg HS ALTAGRACIA Administration Timolol Maleate 1 drop 10/20/20 09:00 10/22/20 09:27 Timolol 0.25% Ophth Soln 5 Ml Bottle EA EYE 1 drop BID ALTAGRACIA Administration - Exam General - other findings: sleepy but arousable ENT: moist mucosa Neck: supple Respiratory - other findings: fair air entry with transmitted sound Cardiovascular: RRR Gastrointestinal: soft, non-distended, normal bowel sounds Extremities - other findings: mild leg and moderate forearm edema noted Neurological - other findings: sleepy but arousable. opens eye to call/stimulation. Non conversational Musculoskeletal: generalized weakness Nephrology Results - Labs Result Diagrams: 10/22/20 05:07 10/22/20 05:07 Lab results: WBC 11.2 thou/uL (4.8-10.8) H 10/22/20 05:07 Hgb 9.4 g/dL (14.0-18.0) L 10/22/20 05:07 Hct 29.8 % (42.0-52.0) L 10/22/20 05:07 MCV 83.6 fL (78.0-98.0) 10/22/20 05:07 Plt Count 110 thou/uL (130-400) L 10/22/20 05:07 Neutrophils % 85.0 % (42.0-75.0) H 10/18/20 17:14 Band Neuts % (Manual) 14 % (5-11) H 10/22/20 05:07 ABG pH 7.26 (7.35-7.45) L 10/18/20 17:20 ABG pCO2 25.9 mmHg (35.0-45.0) L* 10/18/20 17:20 ABG pO2 91.7 mmHg (> 60.0) H 10/18/20 17:20 Sodium 155 mmol/L (136-145) H 10/22/20 05:07 Potassium 3.6 mmol/L (3.5-5.1) 10/22/20 05:07 Chloride 127 mmol/L (98-107) H* 10/22/20 05:07 Carbon Dioxide 20 mmol/L (23-31) L 10/22/20 05:07 BUN 26 mg/dL (8.4-25.7) H 10/22/20 05:07 Creatinine 1.30 mg/dL (0.7-1.3) 10/22/20 05:07 Glucose 204 mg/dL (83-110) H 10/22/20 05:07 Lactic Acid 1.7 mmol/L (0.5-2.2) 10/20/20 03:40 Calcium 7.4 mg/dL (7.8-10.44) L 10/22/20 05:07 Total Bilirubin 0.5 mg/dL (0.2-1.2) 10/20/20 03:40 AST 42 U/L (5-34) H 10/20/20 03:40 ALT 41 U/L (8-55) 10/20/20 03:40 Alkaline Phosphatase 64 U/L (40-110) 10/20/20 03:40 Creatine Kinase 686 U/L (30-200) H 10/22/20 05:07 Troponin I 0.278 ng/mL (< 0.028) H 10/18/20 19:21 Serum Total Protein 5.2 g/dL (5.8-8.1) L 10/20/20 03:40 Albumin 2.4 g/dL (3.4-4.8) L 10/20/20 03:40 Sodium 155 mmol/L (136-145) H 10/22/20 05:07 Potassium 3.6 mmol/L (3.5-5.1) 10/22/20 05:07 Chloride 127 mmol/L (98-107) H* 10/22/20 05:07 Carbon Dioxide 20 mmol/L (23-31) L 10/22/20 05:07 Anion Gap 12 mmol/L (10-20) 10/22/20 05:07 BUN 26 mg/dL (8.4-25.7) H 10/22/20 05:07 Creatinine 1.30 mg/dL (0.7-1.3) 10/22/20 05:07 Glucose 204 mg/dL (83-110) H 10/22/20 05:07 Calcium 7.4 mg/dL (7.8-10.44) L 10/22/20 05:07 Phosphorus 1.5 mg/dL (2.3-4.7) L 10/22/20 05:07 Magnesium 1.9 mg/dL (1.6-2.6) 10/22/20 05:07 Albumin 2.4 g/dL (3.4-4.8) L 10/20/20 03:40 Nephrology AP PN - Plan Acute renal failure with marked azotemia: Due to hemodynamic factors related to severe dehydration, and bactrim and lisinopril use, and rhabdomyolysis. Creat continue to trend down. Not at baseline however Severe dehydration with hypernatremia: Due to excess free water deficit in excess of dehydration from poor oral intake and diuretic use. Severe metabolic acidosis: 2/2 Acute renal failure and metformin use. Rhabdomyolysis: CK is trending down, Encephalopathy.Due to ARF and electrolyte derangement superimposed on dementia Hypokalemia: repleted Hx of HTN Hx of Dementia Hypophosphatemia Paraphimosis Vit D deficiency PLAN DC IVF. Tube feeding to continue Replete serum phosphorus with potassium phosphate 30 mmol Continue oral alkali therapy Continue free water flushes by NG tube 300 cc every 2 hours. Avoid nehrotoxic agents including metformin, lisinopril and diuretics. Other treatments as per primary attending.
[2020-10-22] MEDS: MEROPENEM 1 GM/50 ML 1 GM in Premix Bag 1 BAG IVPB SCH ×2 (11:03→23:14)
--- NOTE | 2020-10-22 17:42 | CON ---
DATE OF CONSULTATION: REASON FOR CONSULTATION: Failure to thrive, recurrent admission for dehydration, dementia, and request for PEG placement. HISTORY OF PRESENT ILLNESS: The patient is an 80-year-old who was admitted on the of this month with a diagnosis of Alzheimer dementia for "altered mental status." He was found to be hypernatremic with a sodium of 175 and transferred here for higher level of care. Apparently, he was not eating or swallowing medicines or food. He had last been here and discharged on 09/28 for altered mental status, renal failure, and urinary tract infection. At present, the patient can say yes and no. He does not seem to understand our conversation, however, he cannot add to his medical history. In review of records when he was admitted, he had transaminitis likely septic shock. PAST MEDICAL HISTORY: Gout, Alzheimer dementia, diabetes type 2, hypertension, hyperlipidemia, chronic renal insufficiency, prior history of stroke and contractures, decubitus ulcers. SURGICAL HISTORY: Prostatectomy, TURP. SOCIAL HISTORY: Lives in assisted living long term. Quit smoking 10 years ago per admission H and P. ALLERGIES: IODINE. MEDICATIONS: At the long term; 1. Tylenol. 2. Hydrochlorothiazide. 3. Potassium. 4. Amlodipine. 5. Atorvastatin. 6. Metformin. 7. Tramadol. 8. Possibly also on allopurinol. 9. Aricept. 10. Exelon. 11. Lisinopril. 12. Loperamide. Medications here; 1. Vitamin D. 2. B12. 3. Aspirin. 4. Pepcid. 5. Folic acid. 6. Insulin sliding scale. 7. Meropenem. 8. Sodium bicarb. 9. Thiamine. PHYSICAL EXAMINATION: GENERAL: He is resting comfortably in bed. He has no distress. He has a Dobbhoff feeding tube. VITAL SIGNS: Temperature 100, pulse 98, blood pressure 112/68. LUNGS: Clear. HEART: Regular rate and rhythm. ABDOMEN: Soft, nontender, nondistended. Bowel sounds are positive. EXTREMITIES: No clubbing, cyanosis, or edema. LABORATORY DATA: White count was 14,000 admission and 18,000, now is 11; hemoglobin is 9.4; platelet count 110; 14% bands; 66% segs. INR 1.4 on 10/18. Sodium 155, down from 170 on admission, was 158 yesterday; potassium 3.6; chloride 127; bicarb 26; creatinine 1.3; phosphorus 1.5; calcium 7.5. CK 680, down from 2600. Cortisol 10 on 10/20. TSH 0.5. Urine glucose is greater than 1000 on admission. No white blood cells in the urine at that time. COVID on 10/18/2020, not detected. IMAGING STUDIES: Chest x-ray on 10/21/2020, negative except for atherosclerotic vessel disease. Renal ultrasound on 10/18/2020, right renal cyst. Brain CT on 10/25/2020, no hydrocephalus. ASSESSMENT: 1. Admission with severe dehydration and rhabdomyolysis, poor p.o. intake. 2. Low-grade fever of unclear etiology. 3. Persistent hypernatremia, although markedly improved. 4. Dementia. 5. Seems that no overt infection has been found this admission and that poor p.o. intake is related to advanced dementia because of current dehydration. The primary service has discussed this with the patient's family, discussed issues of dementia and recommendations were comfort measures. They, however, are not ready to move towards palliative care and requests PEG tube placement. PLAN: EGD with PEG tube placement tomorrow if we get a consent from the patient's family. This will be pending on the patient's labs tomorrow whether or not Anesthesia feels comfortable and safe sedating him. I have called the patient's niece, Selene Potter, at [phone] and left a message on her phone. Job ID: [id number]
--- NOTE | 2020-10-22 17:52 | PDOC.HOSPP ---
- Subjective Encounter Date: 10/22/20 Encounter Time: 09:45 non-verbal Subjective: Patient seen and examined for breathy. Low-grade fever per RN. No other overnight events. - Objective Vital Signs & Weight: Vital Signs (12 hours) Temp Pulse Resp BP Pulse Ox 10/22/20 16:20 99.1 F 70 20 170/75 H 97 10/22/20 12:38 98.2 F 78 19 112/68 99 10/22/20 09:04 100 F H 71 20 129/52 L 96 Weight Admit Weight 138 lb Weight 156 lb 14.4 oz Most Recent Monitor Data Heart Rate from ECG 95 NIBP 135/59 NIBP BP-Mean 84 Respiration from ECG 26 SpO2 100 I&O: 10/21/20 10/22/20 10/23/20 06:59 06:59 06:59 Intake Total 6696 4759 2737 Output Total 2940 1775 620 Balance 3756 2984 2117 Result Diagrams: 10/22/20 05:07 10/22/20 05:07 Additional Labs: Accuchecks 10/22/20 10/22/20 10/22/20 16:23 11:02 06:12 POC Glucose 146 H 172 H 162 H 10/21/20 10/21/20 23:01 17:55 POC Glucose 149 H 114 H Abnormal Lab Results - Last 48 hrs 10/21/20 07:16: Sodium 158 H, Chloride 130 H*, Carbon Dioxide 22 L, BUN 34 H, Creatinine 1.60 H, Calcium 7.5 L, Phosphorus 1.7 L, Creatine Kinase 1176 H 10/21/20 07:16: RBC 3.89 L, Hgb 10.4 L, Hct 33.0 L, MCH 26.6 L, MCHC 31.4 L, Plt Count 115 L, MPV 10.7 H, Neutrophils % (Manual) 77 H, Lymphocytes % (Manual) 12 L, Plt Morphology Comment Appears Decreased L 10/21/20 07:16: 25-OH Vitamin D Total 9.6 L 10/22/20 05:07: Sodium 155 H, Chloride 127 H*, Carbon Dioxide 20 L, BUN 26 H, Calcium 7.4 L, Phosphorus 1.5 L, Creatine Kinase 686 H 10/22/20 05:07: WBC 11.2 H, RBC 3.56 L, Hgb 9.4 L, Hct 29.8 L, MCH 26.4 L, MCHC 31.6 L, Plt Count 110 L, MPV 10.5 H, Band Neuts % (Manual) 14 H, Lymphocytes % (Manual) 15 L, Plt Morphology Comment Appears Decreased L Microbiology - Entire Visit 10/18/[address] catheter Urine Culture - Final NO GROWTH AT 36 HOURS 10/18/20 19:21 Venous blood - Right Arm Blood Culture - Preliminary NO GROWTH AT 48 HOURS 10/18/20 19:21 Venous blood - Right Hand Blood Culture - Preliminary NO GROWTH AT 48 HOURS EKG Reviewed by me: Yes (Sinus rhythm on telemetry) Hospitalist ROS - Review of Systems ROS unobtainable: due to mental status - Medication Medications: Active Medications Generic Name Dose Route Start Last Admin Trade Name Freq PRN Reason Stop Dose Admin Aspirin 81 mg 10/20/20 09:00 10/22/20 09:26 Aspirin Chewable 81 Mg Tab PER TUBE 81 mg DAILY ALTAGRACIA Administration Cyanocobalamin 1,000 mcg 10/22/20 09:00 10/22/20 09:26 Cyanocobalamin (Vitamin B-12) 1,000 Mcg Tab PER TUBE 1,000 mcg DAILY ALTAGRACIA Administration Ergocalciferol 1.25 mg 10/21/20 09:00 10/21/20 11:20 Ergocalciferol 1.25 Mg(50,000 Units) Cap PO 1.25 mg Q7DAYS ALTAGRACIA Administration Famotidine 20 mg 10/19/20 09:00 10/22/20 09:39 Famotidine/Pf 20 Mg/2ml Vial SLOW IVP 20 mg DAILY ALTAGRACIA Administration Folic Acid 1 mg 10/19/20 21:00 10/21/20 22:25 Folic Acid 1 Mg Tab PER TUBE 1 mg HS ALTAGRACIA Administration Heparin Sodium (Porcine) 5,000 units 10/18/20 21:00 10/22/20 09:39 Heparin 5,000 Units/Ml Vial SC 5,000 units BID ALTAGRACIA Administration Sodium Chloride 1,000 mls @ 999 mls/hr 10/19/20 01:00 10/19/20 00:52 Normal Saline 0.9% IV 10/19/20 02:00 1,000 mls .Q1H1M ALTAGRACIA Administration Meropenem 1 gm/ Device 50 mls @ 100 mls/hr 10/22/20 11:00 10/22/20 11:03 IVPB 50 mls 1100,2300 ALTAGRACIA Administration Influenza Virus Vaccine Quadrival 240 mcg 10/19/20 09:00 10/19/20 10:32 Flu Vacc [id number](65yr Up)/Pf 240 Mcg/0.7 Ml Syringe IM 10/19/20 09:01 Not Given .ONCE ONE Insulin Human Regular 0 units 10/19/20 11:50 10/22/20 11:16 Insulin Regular 300 Units/3 Ml Vial SC 2 unit .MODERATE SLIDING SC PRN Administration Moderate Correctional Scale Latanoprost 1 drop 10/19/20 21:00 10/21/20 22:23 Latanoprost 0.005% Ophth Soln 2.5 Ml Bottle EA EYE 1 drop HS ALTAGRACIA Administration Multivitamins 1 tab 10/19/20 21:00 10/21/20 22:24 Multivit, Therapeutic 1 Tab PER TUBE 1 tab HS ALTAGRACIA Administration Scopolamine 1.5 mg 10/21/20 16:00 10/21/20 16:39 Scopolamine 1.5 Mg/72 Hour Patch TD 1.5 mg Q3D ALTAGRACIA Administration Sodium Bicarbonate 50 meq 10/19/20 01:15 10/19/20 10:32 Sodium Bicarb 50 Meq/50 Ml Abboject 8.4% Syringe IVP 10/19/20 03:15 Not Given NOW ALTAGRACIA Sodium Bicarbonate 650 mg 10/21/20 15:00 10/22/20 15:19 Sodium Bicarbonate Tab 325 Mg Tab PO 650 mg TID ALTAGRACIA Administration Sodium Chloride 10 ml 10/22/20 09:00 10/22/20 09:27 Flush - Normal Saline 10 Ml Syringe IVF 10 ml Q12HR ALTAGRACIA Administration Thiamine HCl 100 mg 10/19/20 21:00 10/21/20 22:23 Thiamine 100 Mg Tab PER TUBE 100 mg HS ALTAGRACIA Administration Timolol Maleate 1 drop 10/20/20 09:00 10/22/20 09:27 Timolol 0.25% Ophth Soln 5 Ml Bottle EA EYE 1 drop BID ALTAGRACIA Administration Hospitalist Exam Vitals: Vital Signs (12 hours) Temp Pulse Resp BP Pulse Ox 10/22/20 16:20 99.1 F 70 20 170/75 H 97 10/22/20 12:38 98.2 F 78 19 112/68 99 10/22/20 09:04 100 F H 71 20 129/52 L 96 Weight Admit Weight 138 lb Weight 156 lb 14.4 oz Most Recent Monitor Data Heart Rate from ECG 95 NIBP 135/59 NIBP BP-Mean 84 Respiration from ECG 26 SpO2 100 General Appearance: ill appearing Neck: supple, no JVD Heart: RRR, no gallops Respiratory: no wheezes, no rales, rhonchi (Scattered) Gastrointestinal: non-tender, normal bowel sounds Extremities: no cyanosis Neurological - other findings: Neuroexam limited due to current mentation Hosp A/P (1) Toxic metabolic encephalopathy Code(s): G92 - TOXIC ENCEPHALOPATHY Status: Acute (2) Hyperosmolality and hypernatremia Code(s): E87.0 - HYPEROSMOLALITY AND HYPERNATREMIA Status: Acute (3) Eguur-kh-cskmuse kidney injury Code(s): N17.9 - ACUTE KIDNEY FAILURE, UNSPECIFIED; N18.9 - CHRONIC KIDNEY DISEASE, UNSPECIFIED Status: Acute Qualifiers: Chronic kidney disease stage: stage 2 (mild) (4) Metabolic acidosis Code(s): E87.2 - ACIDOSIS Status: Acute (5) Rhabdomyolysis Code(s): M62.82 - RHABDOMYOLYSIS Status: Acute (6) Dehydration Code(s): E86.0 - DEHYDRATION Status: Acute (7) Sepsis Code(s): A41.9 - SEPSIS, UNSPECIFIED ORGANISM Status: Suspected (8) Lactic acidosis Code(s): E87.2 - ACIDOSIS Status: Acute (9) Diabetes mellitus Code(s): E11.9 - TYPE 2 DIABETES MELLITUS WITHOUT COMPLICATIONS Status: Chronic Qualifiers: Chronic kidney disease stage: stage 2 (mild) (10) HLD (hyperlipidemia) Code(s): E78.5 - HYPERLIPIDEMIA, UNSPECIFIED Status: Chronic (11) HTN (hypertension) Code(s): I10 - ESSENTIAL (PRIMARY) HYPERTENSION Status: Chronic (12) Alzheimer's dementia Code(s): G30.9 - ALZHEIMER'S DISEASE, UNSPECIFIED; F02.80 - DEMENTIA IN OTH DISEASES CLASSD ELSWHR W/O BEHAVRL DISTURB Status: Chronic (13) Hypokalemia Code(s): E87.6 - HYPOKALEMIA Status: Acute (14) Swallowing dysfunction Code(s): R13.10 - DYSPHAGIA, UNSPECIFIED Status: Acute (15) Sacral decubitus ulcer, stage II Code(s): L89.152 - PRESSURE ULCER OF SACRAL REGION, STAGE 2 Status: Chronic (16) BPH (benign prostatic hyperplasia) Code(s): N40.0 - BENIGN PROSTATIC HYPERPLASIA WITHOUT LOWER URINRY TRACT SYMP Status: Chronic - Plan DVT proph w/SCDs 80-year-old male with dementia, hypertension and swallowing dysfunction currently on modified diet presents to the emergency room at [facility] on 10/18 with altered mentation and poor oral intake of 3 days duration. His blood sugar per EMS was less than 50. He received D50 by EMS and was started on IV fluids with dextrose. His temperature by EMS was around 96 with mild tachypnea. In the emergency room his work-up was consistent with leukocytosis with WBC 14 .4 with left shift, sodium greater than 175, bicarb 14,lactic acid 3.3, BUN 150 with creatinine of 5.22, CK 1128 with blood glucose of 442 on the BMP. He received 10 units of IV insulin, vancomycin, cefepime along with IV fluids and was transferred to intensive care unit for hospital admission. Assessment/plan: Acute metabolic encephalopathy due to electrolyte abnormality/AMY/metabolic acidosis IV fluids discontinued. Continue water flushes per nephrology. Recheck labs in a.m. continue sodium bicarbonate Suspected sepsis due to aspiration pneumoniaPOA Restart meropenem due to low-grade fever with leukocytosis and left shift. Hypophosphatemia We will replace phosphorus Vitamin D deficiency Continue vitamin D supplementation Rhabdomyolysis. CK improving. Will recheck CK after 48 hours Swallow dysfunction GI consulted for PEG tube per family request Continue other medications as above. I attempted to call the DPOA Ms. Potter with no answer
[2020-10-22] MEDS: Folic Acid 1 MG TAB PER TUBE SCH (19:46)
[2020-10-22] MEDS: Multivit, Therapeutic 1 TAB PER TUBE SCH (19:47)
[2020-10-22] MEDS: Thiamine 100 MG TAB PER TUBE SCH (19:47)
[2020-10-22] MEDS: Latanoprost 0.005% Ophth Soln 2.5 ml Bottle EA EYE SCH (19:48)
[2020-10-23] MEDS: Acetaminophen 650 MG/20.3 ML UDCUP PO PRN ×2 (00:06→22:26)
[2020-10-23 05:42] LABS: Anion Gap 12 mmol/L (10-20); BUN (Urea Nitrogen) 21 mg/dL (8.4-25.7); Calc. Creatinine Clearance 49 mL/min (70-130); Calcium 7.5 mg/dL (7.8-10.44); Carbon Dioxide 22 mmol/L (23-31); Chloride 123 mmol/L (98-107); Glucose 123 mg/dL (83-110); Potassium 3.8 mmol/L (3.5-5.1); Sodium 153 mmol/L (136-145)
[2020-10-23 05:59] LABS: Band 7 % (5-11); Eosinophils 2 % (0-10); Hypochromia SLIGHT = 6-15 cells (100X) (0-5/hpf); Lymphocytes 16 % (21-51); MDiff Complete? YES; Mean Corpuscular HGB CONC 31.8 g/dL (32.0-36.0); Mean Corpuscular Hemoglobin 26.5 pg (27.0-31.0); Mean Corpuscular Volume 83.4 fL (78.0-98.0); Mean Platelet Volume 11.6 fL (7.4-10.4); Monocytes 5 % (0-10); Neutrophil 70 % (42-75); Platelet Count 102 thou/uL (130-400); Platelet Morphology Comment Appears Decreased; RBC Distribution Width 14.2 % (11.5-14.5); Red Blood Cell (RBC) Count 3.79 mill/uL (4.70-6.10)
[2020-10-23] MEDS ORDERED: Potassium Phosphate 30 MMOL in Sodium Chloride 0.9% 250 ML 250 ML IVPB SCH (07:30)
[2020-10-23] MEDS: Cyanocobalamin (Vitamin B-12) 1,000 MCG TAB PER TUBE SCH (08:07)
[2020-10-23] MEDS: Aspirin Chewable 81 MG TAB PER TUBE SCH (08:07)
[2020-10-23] MEDS: Heparin 5,000 UNITS/ML VIAL SC SCH ×2 (08:08→22:29)
[2020-10-23] MEDS: Sodium Bicarbonate Tab 325 MG TAB PO SCH ×3 (08:08→22:27)
[2020-10-23] MEDS: Timolol 0.25% Ophth Soln 5 ml Bottle EA EYE SCH ×2 (08:08→22:28)
[2020-10-23] MEDS ORDERED: Bacitracin Zinc Ointment 30 gm TUBE ONE (08:22)
[2020-10-23] MEDS: Famotidine/PF 20 mg/2ml Vial SLOW IVP SCH (09:22)
[2020-10-23] MEDS ORDERED: PROPOFOL 200 MG/20 ML VIAL ONE (09:27)
[2020-10-23] MEDS ORDERED: Lidocaine 1% PF 5 ML VIAL ONE (09:27)
--- NOTE | 2020-10-23 10:20 | OP ---
DATE OF PROCEDURE: 10/23/2020 PREPROCEDURE DIAGNOSES: 1. Oropharyngeal dysphagia. 2. Recurrent admission for failure to thrive, dehydration. 3. In this admission, admitted with severe dehydration, rhabdomyolysis, and profound azotemia secondary to dehydration. 4. Prior strokes. POSTPROCEDURE DIAGNOSES: 1. Normal EGD. 2. PEG tube placed by Ponsky pull technique with good placement. ANESTHESIA: TIVA. DESCRIPTION OF PROCEDURE: After the patient's niece gave informed consent, the risks, benefits, and possible complications including perforation, bleeding, reaction to medication, aspiration, and anesthetic risks were explained, they wanted to still go to with the procedure when offered options of hospice or palliative care. Consent was obtained. The patient was brought to endoscopy suite the following day. On the day of procedure, the patient was sedated in gradual fashion. We did not give extra antibiotics as he is on broad-spectrum antibiotics upstairs. Once he was sedated, endoscope was advanced through the bite block into the esophagus, stomach, into the second and third portions of duodenum. The exam was normal in the esophagus. The stomach had normal distensibility and normal in forward and retroflexed views. The duodenum had yellow bile to the third portion of the duodenum. Adequate place for PEG tube placement was identified by finger indentation and transillumination. The PEG tube was placed by Ponsky pull technique. Second-look confirmed good placement. No bleeding. The scope was removed. The patient allowed to wake up and was brought to recovery room in stable condition. Job ID: [id number]
[2020-10-23] MEDS: MEROPENEM 1 GM/50 ML 1 GM in Premix Bag 1 BAG IVPB SCH ×2 (10:22→22:28)
--- NOTE | 2020-10-23 11:06 | PDOC.NEPPN ---
- Subjective Encounter Date: 10/23/20 Subjective: Seen and exaamined. More awake today. had PEG tube placement earlier - Objective Vital Signs & Weight: Vital Signs (12 hours) Temp Pulse Resp BP Pulse Ox 10/23/20 04:00 98.3 F 69 15 160/70 H 99 10/23/20 01:25 99.9 F H 10/22/20 23:54 99.9 F H 88 16 168/73 H 99 Weight Admit Weight 138 lb Weight 161 lb 8 oz Most Recent Monitor Data Heart Rate from ECG 95 NIBP 135/59 NIBP BP-Mean 84 Respiration from ECG 26 SpO2 100 I&O: 10/22/20 10/23/20 10/24/20 06:59 06:59 06:59 Intake Total 4759 5311 Output Total 1775 1345 Balance 2984 3966 Result Diagrams: 10/23/20 05:02 10/23/20 05:02 Additional Labs: Accuchecks 10/23/20 10/22/20 10/22/20 05:33 23:17 16:23 POC Glucose 103 H 184 H 146 H 10/22/20 11:02 POC Glucose 172 H Nephrology ROS - Medication Medications: Active Medications Generic Name Dose Route Start Last Admin Trade Name Freq PRN Reason Stop Dose Admin Acetaminophen 650 mg 10/22/20 09:55 10/23/20 00:06 Acetaminophen 650 Mg/20.3 Ml Udcup PO 650 mg Q4H PRN Administration pain/fever Aspirin 81 mg 10/20/20 09:00 10/23/20 08:07 Aspirin Chewable 81 Mg Tab PER TUBE Not Given DAILY ALTAGRACIA Cyanocobalamin 1,000 mcg 10/22/20 09:00 10/23/20 08:07 Cyanocobalamin (Vitamin B-12) 1,000 Mcg Tab PER TUBE Not Given DAILY ALTAGRACIA Ergocalciferol 1.25 mg 10/21/20 09:00 10/21/20 11:20 Ergocalciferol 1.25 Mg(50,000 Units) Cap PO 1.25 mg Q7DAYS ALTAGRACIA Administration Famotidine 20 mg 10/19/20 09:00 10/23/20 09:22 Famotidine/Pf 20 Mg/2ml Vial SLOW IVP Not Given DAILY ALTAGRACIA Folic Acid 1 mg 10/19/20 21:00 10/22/20 19:46 Folic Acid 1 Mg Tab PER TUBE 1 mg HS ALTAGRACIA Administration Heparin Sodium (Porcine) 5,000 units 10/18/20 21:00 10/23/20 08:08 Heparin 5,000 Units/Ml Vial SC Not Given BID ALTAGRACIA Sodium Chloride 1,000 mls @ 999 mls/hr 10/19/20 01:00 10/19/20 00:52 Normal Saline 0.9% IV 10/19/20 02:00 1,000 mls .Q1H1M ALTAGRACIA Administration Meropenem 1 gm/ Device 50 mls @ 100 mls/hr 10/22/20 11:00 10/23/20 10:22 IVPB 50 mls 1100,2300 ALTAGRACIA Administration Potassium Phosphate 30 mmol/ 260 mls @ 41.7 mls/hr 10/23/20 07:30 10/23/20 10:22 Sodium Chloride IVPB 10/23/20 15:00 260 mls NOW ALTAGRACIA Administration Influenza Virus Vaccine Quadrival 240 mcg 10/19/20 09:00 10/19/20 10:32 Flu Vacc [id number](65yr Up)/Pf 240 Mcg/0.7 Ml Syringe IM 10/19/20 09:01 Not Given .ONCE ONE Insulin Human Regular 0 units 10/19/20 11:50 10/22/20 11:16 Insulin Regular 300 Units/3 Ml Vial SC 2 unit .MODERATE SLIDING SC PRN Administration Moderate Correctional Scale Latanoprost 1 drop 10/19/20 21:00 10/22/20 19:48 Latanoprost 0.005% Ophth Soln 2.5 Ml Bottle EA EYE 1 drop HS ALTAGRACIA Administration Multivitamins 1 tab 10/19/20 21:00 10/22/20 19:47 Multivit, Therapeutic 1 Tab PER TUBE 1 tab HS ALTAGRACIA Administration Scopolamine 1.5 mg 10/21/20 16:00 10/21/20 16:39 Scopolamine 1.5 Mg/72 Hour Patch TD 1.5 mg Q3D ALTAGRACIA Administration Sodium Bicarbonate 50 meq 10/19/20 01:15 10/19/20 10:32 Sodium Bicarb 50 Meq/50 Ml Abboject 8.4% Syringe IVP 10/19/20 03:15 Not Given NOW ALTAGRACIA Sodium Bicarbonate 650 mg 10/21/20 15:00 10/23/20 08:08 Sodium Bicarbonate Tab 325 Mg Tab PO Not Given TID ALTAGRACIA Sodium Chloride 10 ml 10/22/20 09:00 10/23/20 09:23 Flush - Normal Saline 10 Ml Syringe IVF Not Given Q12HR ALTAGRACIA Thiamine HCl 100 mg 10/19/20 21:00 10/22/20 19:47 Thiamine 100 Mg Tab PER TUBE 100 mg HS ALTAGRACIA Administration Timolol Maleate 1 drop 10/20/20 09:00 10/23/20 08:08 Timolol 0.25% Ophth Soln 5 Ml Bottle EA EYE Not Given BID ALTAGRACIA - Exam General - other findings: awake ENT: normocephalic atraumatic, moist mucosa Neck: symmetric Respiratory - other findings: fair air entry with transmitted sound Cardiovascular: RRR Gastrointestinal: soft, non-distended Gastrointestinal - other findings: PEG tube noted Extremities - other findings: tmild edema of the extremities noted Neurological - other findings: Awake. Moving limbs spontaneously though weakly. Verbalizing some Nephrology Results - Labs Result Diagrams: 10/23/20 05:02 10/23/20 05:02 Lab results: WBC 10.0 thou/uL (4.8-10.8) 10/23/20 05:02 Hgb 10.0 g/dL (14.0-18.0) L 10/23/20 05:02 Hct 31.6 % (42.0-52.0) L 10/23/20 05:02 MCV 83.4 fL (78.0-98.0) 10/23/20 05:02 Plt Count 102 thou/uL (130-400) L 10/23/20 05:02 Neutrophils % 85.0 % (42.0-75.0) H 10/18/20 17:14 Band Neuts % (Manual) 7 % (5-11) 10/23/20 05:02 ABG pH 7.26 (7.35-7.45) L 10/18/20 17:20 ABG pCO2 25.9 mmHg (35.0-45.0) L* 10/18/20 17:20 ABG pO2 91.7 mmHg (> 60.0) H 10/18/20 17:20 Sodium 153 mmol/L (136-145) H 10/23/20 05:02 Potassium 3.8 mmol/L (3.5-5.1) 10/23/20 05:02 Chloride 123 mmol/L (98-107) H 10/23/20 05:02 Carbon Dioxide 22 mmol/L (23-31) L 10/23/20 05:02 BUN 21 mg/dL (8.4-25.7) 10/23/20 05:02 Creatinine 1.22 mg/dL (0.7-1.3) 10/23/20 05:02 Glucose 123 mg/dL (83-110) H 10/23/20 05:02 Lactic Acid 1.7 mmol/L (0.5-2.2) 10/20/20 03:40 Calcium 7.5 mg/dL (7.8-10.44) L 10/23/20 05:02 Total Bilirubin 0.5 mg/dL (0.2-1.2) 10/20/20 03:40 AST 42 U/L (5-34) H 10/20/20 03:40 ALT 41 U/L (8-55) 10/20/20 03:40 Alkaline Phosphatase 64 U/L (40-110) 10/20/20 03:40 Creatine Kinase 686 U/L (30-200) H 10/22/20 05:07 Troponin I 0.278 ng/mL (< 0.028) H 10/18/20 19:21 Serum Total Protein 5.2 g/dL (5.8-8.1) L 10/20/20 03:40 Albumin 2.4 g/dL (3.4-4.8) L 10/20/20 03:40 Sodium 153 mmol/L (136-145) H 10/23/20 05:02 Potassium 3.8 mmol/L (3.5-5.1) 10/23/20 05:02 Chloride 123 mmol/L (98-107) H 10/23/20 05:02 Carbon Dioxide 22 mmol/L (23-31) L 10/23/20 05:02 Anion Gap 12 mmol/L (10-20) 10/23/20 05:02 BUN 21 mg/dL (8.4-25.7) 10/23/20 05:02 Creatinine 1.22 mg/dL (0.7-1.3) 10/23/20 05:02 Glucose 123 mg/dL (83-110) H 10/23/20 05:02 Calcium 7.5 mg/dL (7.8-10.44) L 10/23/20 05:02 Phosphorus 2.0 mg/dL (2.3-4.7) L 10/23/20 05:02 Magnesium 1.9 mg/dL (1.6-2.6) 10/22/20 05:07 Albumin 2.4 g/dL (3.4-4.8) L 10/20/20 03:40 Nephrology AP PN - Plan Acute renal failure with marked azotemia: Due to hemodynamic factors related to severe dehydration, and bactrim and lisinopril use, and rhabdomyolysis. Creat continue to trend down. Not at baseline however Severe dehydration with hypernatremia: Due to excess free water deficit in excess of dehydration from poor oral intake and diuretic use. Severe metabolic acidosis: 2/2 Acute renal failure and metformin use. Rhabdomyolysis: CK is trending down, Encephalopathy.Due to ARF and electrolyte derangement superimposed on dementia Hypokalemia: repleted Hx of HTN Hx of Dementia Hypophosphatemia: persistent Paraphimosis Vit D deficiency PLAN Continue Tube feeding and free water flushes Give 30 mmol of potassium phosphate again today Continue oral alkali therapy Avoid nehrotoxic agents including metformin, lisinopril and diuretics. Other treatments as per primary attending. Follow electrolytes and renal function
--- NOTE | 2020-10-23 14:35 | PDOC.HOSPP ---
- Subjective Encounter Date: 10/23/20 Encounter Time: 10:30 Subjective: Patient seen and examined for encephalopathy. Underwent PEG tube placement today. No overnight events. Mentation somewhat better per RN - Objective Vital Signs & Weight: Vital Signs (12 hours) Temp Pulse Resp BP Pulse Ox 10/23/20 04:00 98.3 F 69 15 160/70 H 99 Weight Admit Weight 138 lb Weight 161 lb 8 oz Most Recent Monitor Data Heart Rate from ECG 95 NIBP 135/59 NIBP BP-Mean 84 Respiration from ECG 26 SpO2 100 I&O: 10/22/20 10/23/20 10/24/20 06:59 06:59 06:59 Intake Total 4759 5311 407 Output Total 1775 1345 Balance 2984 3966 407 Result Diagrams: 10/23/20 05:02 10/23/20 05:02 Additional Labs: Accuchecks 10/23/20 10/23/20 10/22/20 11:17 05:33 23:17 POC Glucose 102 H 103 H 184 H 10/22/20 16:23 POC Glucose 146 H Abnormal Lab Results - Last 48 hrs 10/22/20 05:07: Sodium 155 H, Chloride 127 H*, Carbon Dioxide 20 L, BUN 26 H, Calcium 7.4 L, Phosphorus 1.5 L, Creatine Kinase 686 H 10/22/20 05:07: WBC 11.2 H, RBC 3.56 L, Hgb 9.4 L, Hct 29.8 L, MCH 26.4 L, MCHC 31.6 L, Plt Count 110 L, MPV 10.5 H, Band Neuts % (Manual) 14 H, Lymphocytes % (Manual) 15 L, Plt Morphology Comment Appears Decreased L 10/23/20 05:02: Sodium 153 H, Chloride 123 H, Carbon Dioxide 22 L, Calcium 7.5 L 10/23/20 05:02: RBC 3.79 L, Hgb 10.0 L, Hct 31.6 L, MCH 26.5 L, MCHC 31.8 L, Plt Count 102 L, MPV 11.6 H, Lymphocytes % (Manual) 16 L, Plt Morphology Comment Appears Decreased L 10/23/20 05:02: Phosphorus 2.0 L Microbiology - Entire Visit 10/18/[address] catheter Urine Culture - Final NO GROWTH AT 36 HOURS 10/18/20 19:21 Venous blood - Right Arm Blood Culture - Preliminary NO GROWTH AT 48 HOURS 10/18/20 19:21 Venous blood - Right Hand Blood Culture - Preliminary NO GROWTH AT 48 HOURS EKG Reviewed by me: Yes (Sinus rhythm on telemetry) Hospitalist ROS - Review of Systems ROS unobtainable: due to mental status - Medication Medications: Active Medications Generic Name Dose Route Start Last Admin Trade Name Freq PRN Reason Stop Dose Admin Acetaminophen 650 mg 10/22/20 09:55 10/23/20 00:06 Acetaminophen 650 Mg/20.3 Ml Udcup PO 650 mg Q4H PRN Administration pain/fever Aspirin 81 mg 10/20/20 09:00 10/23/20 08:07 Aspirin Chewable 81 Mg Tab PER TUBE Not Given DAILY ALTAGRACIA Cyanocobalamin 1,000 mcg 10/22/20 09:00 10/23/20 08:07 Cyanocobalamin (Vitamin B-12) 1,000 Mcg Tab PER TUBE Not Given DAILY ALTAGRACIA Ergocalciferol 1.25 mg 10/21/20 09:00 10/21/20 11:20 Ergocalciferol 1.25 Mg(50,000 Units) Cap PO 1.25 mg Q7DAYS ALTAGRACIA Administration Famotidine 20 mg 10/19/20 09:00 10/23/20 09:22 Famotidine/Pf 20 Mg/2ml Vial SLOW IVP Not Given DAILY ALTAGRACIA Folic Acid 1 mg 10/19/20 21:00 10/22/20 19:46 Folic Acid 1 Mg Tab PER TUBE 1 mg HS ALTAGRACIA Administration Heparin Sodium (Porcine) 5,000 units 10/18/20 21:00 10/23/20 08:08 Heparin 5,000 Units/Ml Vial SC Not Given BID ALTAGRACIA Sodium Chloride 1,000 mls @ 999 mls/hr 10/19/20 01:00 10/19/20 00:52 Normal Saline 0.9% IV 10/19/20 02:00 1,000 mls .Q1H1M ALTAGRACIA Administration Meropenem 1 gm/ Device 50 mls @ 100 mls/hr 10/22/20 11:00 10/23/20 10:22 IVPB 50 mls 1100,2300 ALTAGRACIA Administration Potassium Phosphate 30 mmol/ 260 mls @ 41.7 mls/hr 10/23/20 07:30 10/23/20 1 0:22 Sodium Chloride IVPB 10/23/20 15:00 260 mls NOW ALTAGRACIA Administration Influenza Virus Vaccine Quadrival 240 mcg 10/19/20 09:00 10/19/20 10:32 Flu Vacc [id number](65yr Up)/Pf 240 Mcg/0.7 Ml Syringe IM 10/19/20 09:01 Not Given .ONCE ONE Insulin Human Regular 0 units 10/19/20 11:50 10/22/20 11:16 Insulin Regular 300 Units/3 Ml Vial SC 2 unit .MODERATE SLIDING SC PRN Administration Moderate Correctional Scale Latanoprost 1 drop 10/19/20 21:00 10/22/20 19:48 Latanoprost 0.005% Ophth Soln 2.5 Ml Bottle EA EYE 1 drop HS ALTAGRACIA Administration Multivitamins 1 tab 10/19/20 21:00 10/22/20 19:47 Multivit, Therapeutic 1 Tab PER TUBE 1 tab HS ALTAGRACIA Administration Scopolamine 1.5 mg 10/21/20 16:00 10/21/20 16:39 Scopolamine 1.5 Mg/72 Hour Patch TD 1.5 mg Q3D ALTAGRACIA Administration Sodium Bicarbonate 50 meq 10/19/20 01:15 10/19/20 10:32 Sodium Bicarb 50 Meq/50 Ml Abboject 8.4% Syringe IVP 10/19/20 03:15 Not Given NOW ALTAGRACIA Sodium Bicarbonate 650 mg 10/21/20 15:00 10/23/20 08:08 Sodium Bicarbonate Tab 325 Mg Tab PO Not Given TID ALTAGRACIA Sodium Chloride 10 ml 10/22/20 09:00 10/23/20 09:23 Flush - Normal Saline 10 Ml Syringe IVF Not Given Q12HR ALTAGRACIA Thiamine HCl 100 mg 10/19/20 21:00 10/22/20 19:47 Thiamine 100 Mg Tab PER TUBE 100 mg HS ALTAGRACIA Administration Timolol Maleate 1 drop 10/20/20 09:00 10/23/20 08:08 Timolol 0.25% Ophth Soln 5 Ml Bottle EA EYE Not Given BID [facility] Hospitalist Exam Vitals: Vital Signs (12 hours) Temp Pulse Resp BP Pulse Ox 10/23/20 04:00 98.3 F 69 15 160/70 H 99 Weight Admit Weight 138 lb Weight 161 lb 8 oz Most Recent Monitor Data Heart Rate from ECG 95 NIBP 135/59 NIBP BP-Mean 84 Respiration from ECG 26 SpO2 100 General Appearance: ill appearing Neck: supple, no JVD Heart: RRR, no gallops Respiratory: no wheezes, no ronchi Gastrointestinal: soft, non-distended, no guarding, no rigidity Extremities: no cyanosis, no clubbing Neurological - other findings: Neuro/psychexam unchanged Hosp A/P (1) Toxic metabolic encephalopathy Code(s): G92 - TOXIC ENCEPHALOPATHY Status: Acute (2) Hyperosmolality and hypernatremia Code(s): E87.0 - HYPEROSMOLALITY AND HYPERNATREMIA Status: Acute (3) [id number] kidney injury Code(s): N17.9 - ACUTE KIDNEY FAILURE, UNSPECIFIED; N18.9 - CHRONIC KIDNEY DISEASE, UNSPECIFIED Status: Acute Qualifiers: Chronic kidney disease stage: stage 2 (mild) (4) Metabolic acidosis Code(s): E87.2 - ACIDOSIS Status: Acute (5) Rhabdomyolysis Code(s): M62.82 - RHABDOMYOLYSIS Status: Acute (6) Dehydration Code(s): E86.0 - DEHYDRATION Status: Acute (7) Sepsis Code(s): A41.9 - SEPSIS, UNSPECIFIED ORGANISM Status: Suspected (8) Lactic acidosis Code(s): E87.2 - ACIDOSIS Status: Acute (9) Diabetes mellitus Code(s): E11.9 - TYPE 2 DIABETES MELLITUS WITHOUT COMPLICATIONS Status: Chronic Qualifiers: Chronic kidney disease stage: stage 2 (mild) (10) HLD (hyperlipidemia) Code(s): E78.5 - HYPERLIPIDEMIA, UNSPECIFIED Status: Chronic (11) HTN (hypertension) Code(s): I10 - ESSENTIAL (PRIMARY) HYPERTENSION Status: Chronic (12) Alzheimer's dementia Code(s): G30.9 - ALZHEIMER'S DISEASE, UNSPECIFIED; F02.80 - DEMENTIA IN OTH DISEASES CLASSD ELSWHR W/O BEHAVRL DISTURB Status: Chronic (13) Hypokalemia Code(s): E87.6 - HYPOKALEMIA Status: Acute (14) Swallowing dysfunction Code(s): R13.10 - DYSPHAGIA, UNSPECIFIED Status: Acute (15) Sacral decubitus ulcer, stage II Code(s): L89.152 - PRESSURE ULCER OF SACRAL REGION, STAGE 2 Status: Chronic (16) BPH (benign prostatic hyperplasia) Code(s): N40.0 - BENIGN PROSTATIC HYPERPLASIA WITHOUT LOWER URINRY TRACT SYMP Status: Chronic - Plan DVT proph w/SCDs 80-year-old male with dementia, hypertension and swallowing dysfunction currently on modified diet presents to the emergency room at [place] on with altered mentation and poor oral intake of 3 days duration. His blood sugar per EMS was less than 50. He received D50 by EMS and was started on IV fluids with dextrose. His temperature by EMS was around 96 with mild tachypnea. In the emergency room his work-up was consistent with leukocytosis with WBC 14.4 with left shift, sodium greater than 175, bicarb 14,lactic acid 3.3, BUN 150 with creatinine of 5.22, CK 1128 with blood glucose of 442 on the BMP. He received 10 units of IV insulin, vancomycin, cefepime along with IV fluids and was transferred to intensive care unit for hospital admission. After electrolyte correction he was transferred to telemetry unit. He underwent PEG tube placement on 10/23. Assessment/plan: Acute metabolic encephalopathy due to electrolyte abnormality/AMY/metabolic acidosis IV fluids have been discontinued per nephrology. Start PEG tube feeds with water flushes. Continue sodium bicarbonate. Recheck labs in a.m. Suspected sepsis due to aspiration pneumonia Continue meropenem Hypophosphatemia Replace phosphorus Vitamin D deficiency Continue vitamin D supplementation Rhabdomyolysis. Repeat CK in a.m. Swallow dysfunction Status post PEG tube placement on 10/23 Continue other medications as above. The DPOA Ms. Potter was updated today.
[2020-10-23] MEDS: Folic Acid 1 MG TAB PER TUBE SCH (22:27)
[2020-10-23] MEDS: Thiamine 100 MG TAB PER TUBE SCH (22:27)
[2020-10-23] MEDS: Multivit, Therapeutic 1 TAB PER TUBE SCH (22:27)
[2020-10-23] MEDS: Latanoprost 0.005% Ophth Soln 2.5 ml Bottle EA EYE SCH (22:28)
[2020-10-24] MEDS ORDERED: Amlodipine 5 MG TAB PO SCH (09:00)
[2020-10-24] MEDS: Cyanocobalamin (Vitamin B-12) 1,000 MCG TAB PER TUBE SCH (09:28)
[2020-10-24] MEDS: Aspirin Chewable 81 MG TAB PER TUBE SCH (09:28)
[2020-10-24] MEDS: Sodium Bicarbonate Tab 325 MG TAB PO SCH ×3 (09:28→20:29)
[2020-10-24] MEDS: Heparin 5,000 UNITS/ML VIAL SC SCH ×2 (09:29→21:12)
[2020-10-24] MEDS: Famotidine/PF 20 mg/2ml Vial SLOW IVP SCH (09:29)
[2020-10-24] MEDS: Timolol 0.25% Ophth Soln 5 ml Bottle EA EYE SCH ×2 (09:30→20:30)
[2020-10-24] MEDS: MEROPENEM 1 GM/50 ML 1 GM in Premix Bag 1 BAG IVPB SCH ×2 (09:55→22:12)
[2020-10-24 11:12] LABS: Hemoglobin 9.5 g/dL (14.0-18.0); Mean Corpuscular HGB CONC 31.3 g/dL (32.0-36.0); Mean Corpuscular Hemoglobin 26.1 pg (27.0-31.0); Mean Corpuscular Volume 83.4 fL (78.0-98.0); RBC Distribution Width 14.2 % (11.5-14.5); Red Blood Cell (RBC) Count 3.64 mill/uL (4.70-6.10)
[2020-10-24 11:16] LABS: Anion Gap 13 mmol/L (10-20); BUN (Urea Nitrogen) 20 mg/dL (8.4-25.7); CK (CPK) 408 U/L (30-200); Calc. Creatinine Clearance 59 mL/min (70-130); Calcium 7.6 mg/dL (7.8-10.44); Carbon Dioxide 23 mmol/L (23-31); Chloride 120 mmol/L (98-107); Glucose 147 mg/dL (83-110); Magnesium 1.9 mg/dL (1.6-2.6); Sodium 152 mmol/L (136-145)
[2020-10-24 11:24] LABS: Phosphorus 1.7 mg/dL (2.3-4.7)
[2020-10-24 12:13] LABS: Anisocytosis SLIGHT = 6-15 cells (100X) (0-5/hpf); Band 6 % (5-11); Eosinophils 1 % (0-10); Hypochromia SLIGHT = 6-15 cells (100X) (0-5/hpf); Lymphocytes 12 % (21-51); MDiff Complete? YES; Monocytes 6 % (0-10); Neutrophil 74 % (42-75); Nucleated RBC 2 % (0); Platelet Morphology Comment PLT clumps seen-LOW; Polychromasia SLIGHT = 2-3 cells (100X) (0-2/hpf); Target Cells SLIGHT = 2-5 cells (100X) (0-1/hpf); White Blood Cell (WBC) Count 10.3 thou/uL (4.8-10.8)
--- NOTE | 2020-10-24 12:56 | PRG ---
DATE OF SERVICE: 10/24/2020 SUBJECTIVE: I talked with the nurse. Mr. Thomas is tolerating his tube feeds. OBJECTIVE: VITAL SIGNS: Temperature is 98, pulse 68, blood pressure 152/71. ABDOMEN: Soft, nontender. PEG tube site clean and dry with no evidence of erythema, discharge, or dislodgement. Bumper was loosened. ASSESSMENT: Status post percutaneous endoscopic gastrostomy tube, tolerating tube feeds. I have asked the nurse to get an abdominal binder on it, so the patient does not pull it out. I have also informed her that she need to be wash it daily and orders have been placed. This will be done with soap and water. We will sign off at this time. If I can be any further assistance in this patient's care, please do not hesitate to contact me. Job ID: [id number]
--- NOTE | 2020-10-24 13:53 | PDOC.NEPPN ---
- Subjective Encounter Date: 10/24/20 Subjective: Seen and examined. verbalizing more - Objective Vital Signs & Weight: Vital Signs (12 hours) Temp Pulse Resp BP Pulse Ox 10/24/20 11:55 98.3 F 68 18 152/71 H 98 10/24/20 08:00 98.1 F 69 18 166/69 H 98 10/24/20 05:28 98.3 F 69 19 181/72 H 98 Weight Admit Weight 138 lb Weight 166 lb 14.4 oz Most Recent Monitor Data Heart Rate from ECG 95 NIBP 135/59 NIBP BP-Mean 84 Respiration from ECG 26 SpO2 100 I&O: 10/23/20 10/24/20 10/25/20 06:59 06:59 06:59 Intake Total 5311 2523 1844 Output Total 1345 825 985 Balance 3966 1698 859 Result Diagrams: 10/24/20 10:44 10/24/20 10:48 Additional Labs: Accuchecks 10/24/20 10/24/20 10/24/20 11:15 05:57 00:56 POC Glucose 142 H 93 123 H 10/23/20 17:05 POC Glucose 109 H Nephrology ROS - Medication Medications: Active Medications Generic Name Dose Route Start Last Admin Trade Name Freq PRN Reason Stop Dose Admin Acetaminophen 650 mg 10/22/20 09:55 10/23/20 22:26 Acetaminophen 650 Mg/20.3 Ml Udcup PO 650 mg Q4H PRN Administration pain/fever Amlodipine Besylate 5 mg 10/24/20 09:00 10/24/20 09:28 Amlodipine 5 Mg Tab PO 5 mg DAILY ALTAGRACIA Administration Aspirin 81 mg 10/20/20 09:00 10/24/20 09:28 Aspirin Chewable 81 Mg Tab PER TUBE 81 mg DAILY ALTAGRACIA Administration Cyanocobalamin 1,000 mcg 10/22/20 09:00 10/24/20 09:28 Cyanocobalamin (Vitamin B-12) 1,000 Mcg Tab PER TUBE 1,000 mcg DAILY ALTAGRACIA Administration Ergocalciferol 1.25 mg 10/21/20 09:00 10/21/20 11:20 Ergocalciferol 1.25 Mg(50,000 Units) Cap PO 1.25 mg Q7DAYS ALTAGRACIA Administration Famotidine 20 mg 10/19/20 09:00 10/24/20 09:29 Famotidine/Pf 20 Mg/2ml Vial SLOW IVP 20 mg DAILY ALTAGRACIA Administration Folic Acid 1 mg 10/19/20 21:00 10/23/20 22:27 Folic Acid 1 Mg Tab PER TUBE 1 mg HS ALTAGRACIA Administration Heparin Sodium (Porcine) 5,000 units 10/18/20 21:00 10/24/20 09:29 Heparin 5,000 Units/Ml Vial SC 5,000 units BID ALTAGRACIA Administration Sodium Chloride 1,000 mls @ 999 mls/hr 10/19/20 01:00 10/19/20 00:52 Normal Saline 0.9% IV 10/19/20 02:00 1,000 mls .Q1H1M ALTAGRACIA Administration Meropenem 1 gm/ Device 50 mls @ 100 mls/hr 10/22/20 11:00 10/24/20 09:55 IVPB 50 mls 1100,2300 ALTAGRACIA Administration Influenza Virus Vaccine Quadrival 240 mcg 10/19/20 09:00 10/19/20 10:32 Flu Vacc [id number](65yr Up)/Pf 240 Mcg/0.7 Ml Syringe IM 10/19/20 09:01 Not Given .ONCE ONE Insulin Human Regular 0 units 10/19/20 11:50 10/22/20 11:16 Insulin Regular 300 Units/3 Ml Vial SC 2 unit .MODERATE SLIDING SC PRN Administration Moderate Correctional Scale Latanoprost 1 drop 10/19/20 21:00 10/23/20 22:28 Latanoprost 0.005% Ophth Soln 2.5 Ml Bottle EA EYE 1 drop HS ALTAGRACIA Administration Multivitamins 1 tab 10/19/20 21:00 10/23/20 22:27 Multivit, Therapeutic 1 Tab PER TUBE 1 tab HS ALTAGRACIA Administration Scopolamine 1.5 mg 10/21/20 16:00 10/21/20 16:39 Scopolamine 1.5 Mg/72 Hour Patch TD 1.5 mg Q3D ALTAGRACIA Administration Sodium Bicarbonate 50 meq 10/19/20 01:15 10/19/20 10:32 Sodium Bicarb 50 Meq/50 Ml Abboject 8.4% Syringe IVP 10/19/20 03:15 Not Given NOW ALTAGRACIA Sodium Bicarbonate 650 mg 10/21/20 15:00 10/24/20 09:28 Sodium Bicarbonate Tab 325 Mg Tab PO 650 mg TID ALTAGRACIA Administration Sodium Chloride 10 ml 10/22/20 09:00 10/24/20 09:29 Flush - Normal Saline 10 Ml Syringe IVF 10 ml Q12HR ALTAGRACIA Administration Thiamine HCl 100 mg 10/19/20 21:00 10/23/20 22:27 Thiamine 100 Mg Tab PER TUBE 100 mg HS ALTAGRACIA Administration Timolol Maleate 1 drop 10/20/20 09:00 10/24/20 09:30 Timolol 0.25% Ophth Soln 5 Ml Bottle EA EYE 1 drop BID ALTAGRACIA Administration - Exam General - other findings: awake Eye: anicteric sclera ENT: normocephalic atraumatic, moist mucosa Neck: supple, symmetric Respiratory - other findings: fair air entry with some transmitted sound bilaterally Cardiovascular: RRR Gastrointestinal: soft, non-distended Gastrointestinal - other findings: PEG tube noted Extremities - other findings: trace to mild edema of the extremities Neurological: CN's grossly intact, no new deficit Neurological - other findings: attempting to verbalize with some dysarthria Nephrology Results - Labs Result Diagrams: 10/24/20 10:44 10/24/20 10:48 Lab results: WBC 10.3 thou/uL (4.8-10.8) 10/24/20 10:44 Hgb 9.5 g/dL (14.0-18.0) L 10/24/20 10:44 Hct 30.4 % (42.0-52.0) L 10/24/20 10:44 MCV 83.4 fL (78.0-98.0) 10/24/20 10:44 Plt Count TNP 10/24/20 10:44 Neutrophils % 85.0 % (42.0-75.0) H 10/18/20 17:14 Band Neuts % (Manual) 6 % (5-11) 10/24/20 10:44 ABG pH 7.26 (7.35-7.45) L 10/18/20 17:20 ABG pCO2 25.9 mmHg (35.0-45.0) L* 10/18/20 17:20 ABG pO2 91.7 mmHg (> 60.0) H 10/18/20 17:20 Sodium 152 mmol/L (136-145) H 10/24/20 10:48 Potassium 4.0 mmol/L (3.5-5.1) 10/24/20 10:48 Chloride 120 mmol/L (98-107) H 10/24/20 10:48 Carbon Dioxide 23 mmol/L (23-31) 10/24/20 10:48 BUN 20 mg/dL (8.4-25.7) 10/24/20 10:48 Creatinine 1.07 mg/dL (0.7-1.3) 10/24/20 10:48 Glucose 147 mg/dL (83-110) H 10/24/20 10:48 Lactic Acid 1.7 mmol/L (0.5-2.2) 10/20/20 03:40 Calcium 7.6 mg/dL (7.8-10.44) L 10/24/20 10:48 Total Bilirubin 0.5 mg/dL (0.2-1.2) 10/20/20 03:40 AST 42 U/L (5-34) H 10/20/20 03:40 ALT 41 U/L (8-55) 10/20/20 03:40 Alkaline Phosphatase 64 U/L (40-110) 10/20/20 03:40 Creatine Kinase 408 U/L (30-200) H 10/24/20 10:48 Troponin I 0.278 ng/mL (< 0.028) H 10/18/20 19:21 Serum Total Protein 5.2 g/dL (5.8-8.1) L 10/20/20 03:40 Albumin 2.4 g/dL (3.4-4.8) L 10/20/20 03:40 Sodium 152 mmol/L (136-145) H 10/24/20 10:48 Potassium 4.0 mmol/L (3.5-5.1) 10/24/20 10:48 Chloride 120 mmol/L (98-107) H 10/24/20 10:48 Carbon Dioxide 23 mmol/L (23-31) 10/24/20 10:48 Anion Gap 13 mmol/L (10-20) 10/24/20 10:48 BUN 20 mg/dL (8.4-25.7) 10/24/20 10:48 Creatinine 1.07 mg/dL (0.7-1.3) 10/24/20 10:48 Glucose 147 mg/dL (83-110) H 10/24/20 10:48 Calcium 7.6 mg/dL (7.8-10.44) L 10/24/20 10:48 Phosphorus 1.7 mg/dL (2.3-4.7) L 10/24/20 10:48 Magnesium 1.9 mg/dL (1.6-2.6) 10/24/20 10:48 Albumin 2.4 g/dL (3.4-4.8) L 10/20/20 03:40 Nephrology AP PN - Plan Acute renal failure with marked azotemia: Due to hemodynamic factors related to severe dehydration, and bactrim and lisinopril use, and rhabdomyolysis. Creat continue to trend down. Close to baseline. Severe dehydration : resolved Hypernatremia: Due to free water deficit from poor oral intake and diuretic use.Improved. serum sodoim is still high at 152 Severe metabolic acidosis: 2/2 Acute renal failure and metformin use. Rhabdomyolysis: Improved. Encephalopathy.Due to ARF and electrolyte derangement superimposed on dementia Hypokalemia: repleted Hx of HTN Hx of Dementia Hypophosphatemia: persists Paraphimosis Vit D deficiency PLAN Increase free water flushes to 350 q2h. Give 30 mmol of potassium phosphate again today Continue oral alkali therapy Avoid nehrotoxic agents including metformin, lisinopril and diuretics. Other treatments as per primary attending. Follow electrolytes and renal function
[2020-10-24] MEDS ORDERED: Potassium Phosphate 30 MMOL in Sodium Chloride 0.9% 250 ML 250 ML IVPB SCH (14:00)
--- NOTE | 2020-10-24 15:14 | PDOC.HOSPP ---
- Subjective Encounter Date: 10/24/20 Encounter Time: 12:45 Subjective: awake, does not follow verbal stimuli talks a few words which doesn't make sense gets agitated if I examine him more, sometimes doesn't want to be touched. - Objective Vital Signs & Weight: Vital Signs (12 hours) Temp Pulse Resp BP Pulse Ox 10/24/20 11:55 98.3 F 68 18 152/71 H 98 10/24/20 08:00 98.1 F 69 18 166/69 H 98 10/24/20 05:28 98.3 F 69 19 181/72 H 98 Weight Admit Weight 138 lb Weight 166 lb 14.4 oz Most Recent Monitor Data Heart Rate from ECG 95 NIBP 135/59 NIBP BP-Mean 84 Respiration from ECG 26 SpO2 100 I&O: 10/23/20 10/24/20 10/25/20 06:59 06:59 06:59 Intake Total 5311 2523 1844 Output Total 1345 825 985 Balance 3966 0620 859 Result Diagrams: 10/24/20 10:44 10/24/20 10:48 Additional Labs: Accuchecks 10/24/20 10/24/20 10/24/20 11:15 05:57 00:56 POC Glucose 142 H 93 123 H 10/23/20 17:05 POC Glucose 109 H Hospitalist ROS - Medication Medications: Active Medications Generic Name Dose Route Start Last Admin Trade Name Freq PRN Reason Stop Dose Admin Acetaminophen 650 mg 10/22/20 09:55 10/23/20 22:26 Acetaminophen 650 Mg/20.3 Ml Udcup PO 650 mg Q4H PRN Administration pain/fever Amlodipine Besylate 5 mg 10/24/20 09:00 10/24/20 09:28 Amlodipine 5 Mg Tab PO 5 mg DAILY ALTAGRACIA Administration Aspirin 81 mg 10/20/20 09:00 10/24/20 09:28 Aspirin Chewable 81 Mg Tab PER TUBE 81 mg DAILY ALTAGRACIA Administration Cyanocobalamin 1,000 mcg 10/22/20 09:00 10/24/20 09:28 Cyanocobalamin (Vitamin B-12) 1,000 Mcg Tab PER TUBE 1,000 mcg DAILY ALTAGRACIA Administration Ergocalciferol 1.25 mg 10/21/20 09:00 10/21/20 11:20 Ergocalciferol 1.25 Mg(50,000 Units) Cap PO 1.25 mg Q7DAYS ALTAGRACIA Administration Famotidine 20 mg 10/19/20 09:00 10/24/20 09:29 Famotidine/Pf 20 Mg/2ml Vial SLOW IVP 20 mg DAILY ALTAGRACIA Administration Folic Acid 1 mg 10/19/20 21:00 10/23/20 22:27 Folic Acid 1 Mg Tab PER TUBE 1 mg HS ALTAGRACIA Administration Heparin Sodium (Porcine) 5,000 units 10/18/20 21:00 10/24/20 09:29 Heparin 5,000 Units/Ml Vial SC 5,000 units BID ALTAGRACIA Administration Sodium Chloride 1,000 mls @ 999 mls/hr 10/19/20 01:00 10/19/20 00:52 Normal Saline 0.9% IV 10/19/20 02:00 1,000 mls .Q1H1M ALTAGRACIA Administration Meropenem 1 gm/ Device 50 mls @ 100 mls/hr 10/22/20 11:00 10/24/20 09:55 IVPB 50 mls 1100,2300 ALTAGRACIA Administration Influenza Virus Vaccine Quadrival 240 mcg 10/19/20 09:00 10/19/20 10:32 Flu Vacc [id number](65yr Up)/Pf 240 Mcg/0.7 Ml Syringe IM 10/19/20 09:01 Not Given .ONCE ONE Insulin Human Regular 0 units 10/19/20 11:50 10/22/20 11:16 Insulin Regular 300 Units/3 Ml Vial SC 2 unit .MODERATE SLIDING SC PRN Administration Moderate Correctional Scale Latanoprost 1 drop 10/19/20 21:00 10/23/20 22:28 Latanoprost 0.005% Ophth Soln 2.5 Ml Bottle EA EYE 1 drop HS ALTAGRACIA Administration Multivitamins 1 tab 10/19/20 21:00 10/23/20 22:27 Multivit, Therapeutic 1 Tab PER TUBE 1 tab HS ALTAGRACIA Administration Scopolamine 1.5 mg 10/21/20 16:00 10/21/20 16:39 Scopolamine 1.5 Mg/72 Hour Patch TD 1.5 mg Q3D ALTAGRACIA Administration Sodium Bicarbonate 50 meq 10/19/20 01:15 10/19/20 10:32 Sodium Bicarb 50 Meq/50 Ml Abboject 8.4% Syringe IVP 10/19/20 03:15 Not Given NOW ALTAGRACIA Sodium Bicarbonate 650 mg 10/21/20 15:00 10/24/20 09:28 Sodium Bicarbonate Tab 325 Mg Tab PO 650 mg TID ALTAGRACIA Administration Sodium Chloride 10 ml 10/22/20 09:00 10/24/20 09:29 Flush - Normal Saline 10 Ml Syringe IVF 10 ml Q12HR ALTAGRACIA Administration Thiamine HCl 100 mg 10/19/20 21:00 10/23/20 22:27 Thiamine 100 Mg Tab PER TUBE 100 mg HS ALTAGRACIA Administration Timolol Maleate 1 drop 10/20/20 09:00 10/24/20 09:30 Timolol 0.25% Ophth Soln 5 Ml Bottle EA EYE 1 drop BID ALTAGRACIA Administration Hospitalist Exam Vitals: Vital Signs (12 hours) Temp Pulse Resp BP Pulse Ox 10/24/20 11:55 98.3 F 68 18 152/71 H 98 10/24/20 08:00 98.1 F 69 18 166/69 H 98 10/24/20 05:28 98.3 F 69 19 181/72 H 98 Weight Admit Weight 138 lb Weight 166 lb 14.4 oz Most Recent Monitor Data Heart Rate from ECG 95 NIBP 135/59 NIBP BP-Mean 84 Respiration from ECG 26 SpO2 100 Eye: PERRL, anicteric sclera ENT: no oropharyngeal lesions, moist mucosa Neck: supple, no JVD Heart: RRR, no murmur Respiratory: no wheezes, no rales Gastrointestinal: soft, non-tender, non-distended, normal bowel sounds Gastrointestinal - other findings: peg+ Extremities: no cyanosis, no edema Neurological: cranial nerve grossly intact, no focal deficits Hosp A/P (1) Acute metabolic encephalopathy Code(s): G93.41 - METABOLIC ENCEPHALOPATHY Status: Acute (2) Dysphagia Code(s): R13.10 - DYSPHAGIA, UNSPECIFIED Status: Acute Qualifiers: Dysphagia type: oropharyngeal phase Qualified Code(s): R13.12 - Dysphagia, oropharyngeal phase (3) Hyperosmolality and hypernatremia Code(s): E87.0 - HYPEROSMOLALITY AND HYPERNATREMIA Status: Acute (4) Hypokalemia Code(s): E87.6 - HYPOKALEMIA Status: Resolved (5) Metabolic acidosis Code(s): E87.2 - ACIDOSIS Status: Acute (6) Rhabdomyolysis Code(s): M62.82 - RHABDOMYOLYSIS Status: Resolved Qualifiers: Rhabdomyolysis type: non-traumatic Qualified Code(s): M62.82 - Rhabdomyolysis (7) Sacral decubitus ulcer, stage II Code(s): L89.152 - PRESSURE ULCER OF SACRAL REGION, STAGE 2 Status: Chronic (8) Dehydration Code(s): E86.0 - DEHYDRATION Status: Acute (9) Alzheimer's dementia Code(s): G30.9 - ALZHEIMER'S DISEASE, UNSPECIFIED; F02.80 - DEMENTIA IN OTH DISEASES CLASSD ELSWHR W/O BEHAVRL DISTURB Status: Chronic Qualifiers: Alzheimer's disease onset: unspecified onset (10) BPH (benign prostatic hyperplasia) Code(s): N40.0 - BENIGN PROSTATIC HYPERPLASIA WITHOUT LOWER URINRY TRACT SYMP Status: Chronic Qualifiers: Lower urinary tract symptom presence: symptoms absent Qualified Code(s): N40.0 - Benign prostatic hyperplasia without lower urinary tract symptoms (11) DM2 (diabetes mellitus, type 2) Status: Chronic Qualifiers: Diabetes mellitus exterminator helper insulin use: without retirement use (12) Glaucoma Code(s): H40.9 - UNSPECIFIED GLAUCOMA Status: Chronic (13) HLD (hyperlipidemia) Code(s): E78.5 - HYPERLIPIDEMIA, UNSPECIFIED Status: Chronic Qualifiers: Hyperlipidemia type: mixed hyperlipidemia Qualified Code(s): E78.2 - Mixed hyperlipidemia (14) HTN (hypertension) Code(s): I10 - ESSENTIAL (PRIMARY) HYPERTENSION Status: Chronic Qualifiers: Hypertension type: essential hypertension Qualified Code(s): I10 - Essential (primary) hypertension - Plan is getting free water via peg and peg feeding on meropenem for suspicion of asp pna, nebs, scopalamine tts continue asp, vit B12 s/p peg on 10/23 dc plan in 24-36hrs to [facility] d/w pily MenjivarSelene and gave full updates, code status was revisited, she wants him to be full code. prognosis is poor given advance age, dysphagia, dementia, bed bound status, encephalopathic and PA resident
[2020-10-24] MEDS: Scopolamine 1.5 mg/72 hour Patch TD SCH (15:18)
[2020-10-24] MEDS: Thiamine 100 MG TAB PER TUBE SCH (20:29)
[2020-10-24] MEDS: Multivit, Therapeutic 1 TAB PER TUBE SCH (20:29)
[2020-10-24] MEDS: Folic Acid 1 MG TAB PER TUBE SCH (20:30)
[2020-10-24] MEDS: Latanoprost 0.005% Ophth Soln 2.5 ml Bottle EA EYE SCH (20:30)
[2020-10-24 21:00] LABS: Platelet Count 61 thou/uL (130-400)
[2020-10-25 05:56] LABS: Mean Corpuscular Hemoglobin 26.4 pg (27.0-31.0); Mean Corpuscular Volume 82.5 fL (78.0-98.0); Mean Platelet Volume 10.1 fL (7.4-10.4); Platelet Count 146 thou/uL (130-400); RBC Distribution Width 14.1 % (11.5-14.5); White Blood Cell (WBC) Count 10.4 thou/uL (4.8-10.8)
[2020-10-25 06:13] LABS: Band 2 % (5-11); Eosinophils 1 % (0-10); Hypochromia SLIGHT = 6-15 cells (100X) (0-5/hpf); Lymphocytes 16 % (21-51); MDiff Complete? YES; Monocytes 7 % (0-10); Neutrophil 74 % (42-75); Platelet Morphology Comment Appears Adequate
[2020-10-25 07:58] LABS: Albumin 2.3 g/dL (3.4-4.8); Anion Gap 11 mmol/L (10-20); BUN (Urea Nitrogen) 20 mg/dL (8.4-25.7); Calc. Creatinine Clearance 65 mL/min (70-130); Calcium 7.5 mg/dL (7.8-10.44); Carbon Dioxide 25 mmol/L (23-31); Chloride 113 mmol/L (98-107); Glucose 128 mg/dL (83-110); Phosphorus 2.2 mg/dL (2.3-4.7); Potassium 3.7 mmol/L (3.5-5.1); Sodium 145 mmol/L (136-145)
[2020-10-25] MEDS: Aspirin Chewable 81 MG TAB PER TUBE SCH (08:56)
[2020-10-25] MEDS: Allopurinol 100 MG TAB PO SCH (08:56)
[2020-10-25] MEDS: Ascorbic Acid 500 mg Chewable Tablet PO SCH (08:56)
[2020-10-25] MEDS: Amlodipine 10 MG TAB PO SCH (08:56)
[2020-10-25] MEDS: Atorvastatin Calcium 40 MG TAB PO SCH (08:57)
[2020-10-25] MEDS: Cyanocobalamin (Vitamin B-12) 1,000 MCG TAB PER TUBE SCH (08:57)
[2020-10-25] MEDS: Heparin 5,000 UNITS/ML VIAL SC SCH ×3 (08:58→21:59)
[2020-10-25] MEDS: Sodium Bicarbonate Tab 325 MG TAB PO SCH (08:58)
[2020-10-25] MEDS: Pantoprazole 40 MG GRANULES PACKET PER TUBE SCH (08:58)
[2020-10-25] MEDS: Metoprolol Tartrate 50 MG TAB PO SCH ×2 (08:58→21:59)
[2020-10-25] MEDS: Timolol 0.25% Ophth Soln 5 ml Bottle EA EYE SCH ×2 (08:59→22:02)
[2020-10-25] MEDS: Dorzolamide HCl 2% Ophth Soln 10 ml Bottle EA EYE SCH ×2 (09:14→22:01)
[2020-10-25] MEDS: Rivastigmine 9.5mg/24 Hour PATCH TD SCH (09:14)
[2020-10-25] MEDS: MEROPENEM 1 GM/50 ML 1 GM in Premix Bag 1 BAG IVPB SCH (10:22)
[2020-10-25] MEDS: Nystatin Powder 15 GM BOT TOP SCH ×2 (13:19→22:42)
--- NOTE | 2020-10-25 13:35 | PDOC.NEPPN ---
- Subjective Encounter Date: 10/25/20 Subjective: Seen and examined. No new problem. - Objective Vital Signs & Weight: Vital Signs (12 hours) Temp Pulse Resp BP BP Pulse Ox 10/25/20 12:02 99.0 F 58 L 24 H 148/66 H 94 L 10/25/20 08:56 68 167/74 H 10/25/20 08:00 97 10/25/20 07:57 98.5 F 68 24 H 167/74 H 97 10/25/20 04:00 98.5 F 60 18 168/71 H 97 Weight Admit Weight 138 lb Weight 171 lb Most Recent Monitor Data Heart Rate from ECG 95 NIBP 135/59 NIBP BP-Mean 84 Respiration from ECG 26 SpO2 100 I&O: 10/24/20 10/25/20 10/26/20 06:59 06:59 06:59 Intake Total 2523 6349 1090 Output Total 825 1885 Balance 1698 4464 1090 Result Diagrams: 10/25/20 05:43 10/25/20 07:20 Additional Labs: Accuchecks 10/25/20 10/25/20 10/24/20 11:11 05:31 23:54 POC Glucose 129 H 126 H 136 H 10/24/20 16:59 POC Glucose 125 H Nephrology ROS - Medication Medications: Active Medications Generic Name Dose Route Start Last Admin Trade Name Freq PRN Reason Stop Dose Admin Acetaminophen 650 mg 10/22/20 09:55 10/23/20 22:26 Acetaminophen 650 Mg/20.3 Ml Udcup PO 650 mg Q4H PRN Administration pain/fever Allopurinol 100 mg 10/25/20 09:00 10/25/20 08:56 Allopurinol 100 Mg Tab PO 100 mg DAILY [facility] Administration Amlodipine Besylate 10 mg 10/25/20 09:00 10/25/20 08:56 Amlodipine 10 Mg Tab PO 10 mg DAILY [facility] Administration Ascorbic Acid 500 mg 10/25/20 09:00 10/25/20 08:56 Ascorbic Acid 500 Mg Chewable Tablet PO 500 mg DAILY [facility] Administration Aspirin 81 mg 10/20/20 09:00 10/25/20 08:56 Aspirin Chewable 81 Mg Tab PER TUBE 81 mg DAILY [facility] Administration Atorvastatin Calcium 20 mg 10/25/20 09:00 10/25/20 08:57 Atorvastatin Calcium 40 Mg Tab PO 20 mg DAILY [facility] Administration Cyanocobalamin 1,000 mcg 10/22/20 09:00 10/25/20 08:57 Cyanocobalamin (Vitamin B-12) 1,000 Mcg Tab PER TUBE 1,000 mcg DAILY [facility] Administration Dorzolamide HCl 1 drop 10/25/20 09:00 10/25/20 09:14 Dorzolamide Hcl 2% Ophth Soln 10 Ml Bottle EA EYE 1 drop BID [facility] Administration Ergocalciferol 1.25 mg 10/21/20 09:00 10/21/20 11:20 Ergocalciferol 1.25 Mg(50,000 Units) Cap PO 1.25 mg Q7DAYS [facility] Administration Folic Acid 1 mg 10/19/20 21:00 10/24/20 20:30 Folic Acid 1 Mg Tab PER TUBE 1 mg HS [facility] Administration Heparin Sodium (Porcine) 5,000 units 10/18/20 21:00 10/25/20 09:18 Heparin 5,000 Units/Ml Vial SC Not Given BID [facility] Sodium Chloride 1,000 mls @ 999 mls/hr 10/19/20 01:00 10/19/20 00:52 Normal Saline 0.9% IV 10/19/20 02:00 1,000 mls .Q1H1M [facility] Administration Meropenem 1 gm/ Device 50 mls @ 100 mls/hr 10/22/20 11:00 10/25/20 10:22 IVPB 50 mls 1100,2300 [facility] Administration Influenza Virus Vaccine Quadrival 240 mcg 10/19/20 09:00 10/19/20 10:32 Flu Vacc [id number](65yr Up)/Pf 240 Mcg/0.7 Ml Syringe IM 10/19/20 09:01 Not Given .ONCE ONE Insulin Human Regular 0 units 10/19/20 11:50 10/22/20 11:16 Insulin Regular 300 Units/3 Ml Vial SC 2 unit .MODERATE SLIDING SC PRN Administration Moderate Correctional Scale Latanoprost 1 drop 10/19/20 21:00 10/24/20 20:30 Latanoprost 0.005% Ophth Soln 2.5 Ml Bottle EA EYE 1 drop HS [facility] Administration Memantine 10 mg 10/25/20 09:00 10/25/20 08:58 Memantine Hcl 10 Mg Tab PO 10 mg DAILY [facility] Administration Metoprolol Tartrate 50 mg 10/25/20 09:00 10/25/20 08:58 Metoprolol Tartrate 50 Mg Tab PO 50 mg BID [facility] Administration Multivitamins 1 tab 10/19/20 21:00 10/24/20 20:29 Multivit, Therapeutic 1 Tab PER TUBE 1 tab HS [facility] Administration Nystatin 0 gm 10/25/20 21:00 10/25/20 13:19 Nystatin Powder 15 Gm Bot TOP 1 applic BID [facility] Administration Pantoprazole Sodium 40 mg 10/25/20 09:00 10/25/20 08:58 Pantoprazole 40 Mg Granules Packet PER TUBE 40 mg DAILY [facility] Administration Rivastigmine 9.5 mg 10/25/20 09:00 10/25/20 09:14 Rivastigmine 9.5mg/24 Hour Patch TD 9.5 mg DAILY [facility] Administration Scopolamine 1.5 mg 10/21/20 16:00 10/24/20 15:18 Scopolamine 1.5 Mg/72 Hour Patch TD 1.5 mg Q3D [facility] Administration Sodium Bicarbonate 50 meq 10/19/20 01:15 10/19/20 10:32 Sodium Bicarb 50 Meq/50 Ml Abboject 8.4% Syringe IVP 10/19/20 03:15 Not Given NOW [facility] Sodium Chloride 10 ml 10/22/20 09:00 10/25/20 09:01 Flush - Normal Saline 10 Ml Syringe IVF 10 ml Q12HR [facility] Administration Thiamine HCl 100 mg 10/19/20 21:00 10/24/20 20:29 Thiamine 100 Mg Tab PER TUBE 100 mg HS [facility] Administration Timolol Maleate 1 drop 10/20/20 09:00 10/25/20 08:59 Timolol 0.25% Ophth Soln 5 Ml Bottle EA EYE 1 drop BID [facility] Administration - Exam General - other findings: sleeping but arousable ENT: normocephalic atraumatic, moist mucosa Neck: supple, symmetric Respiratory - other findings: fair air entry with some transmitted sound Cardiovascular: RRR Gastrointestinal: soft, non-distended Extremities - other findings: trace to mild edema of the extremities Neurological - other findings: sleeping but arousable. Confused Nephrology Results - Labs Result Diagrams: 10/25/20 05:43 10/25/20 07:20 Lab results: WBC 10.4 thou/uL (4.8-10.8) 10/25/20 05:43 Hgb 9.0 g/dL (14.0-18.0) L 10/25/20 05:43 Hct 28.0 % (42.0-52.0) L 10/25/20 05:43 MCV 82.5 fL (78.0-98.0) 10/25/20 05:43 Plt Count 146 thou/uL (130-400) 10/25/20 05:43 Neutrophils % 85.0 % (42.0-75.0) H 10/18/20 17:14 Band Neuts % (Manual) 2 % (5-11) L 10/25/20 05:43 ABG pH 7.26 (7.35-7.45) L 10/18/20 17:20 ABG pCO2 25.9 mmHg (35.0-45.0) L* 10/18/20 17:20 ABG pO2 91.7 mmHg (> 60.0) H 10/18/20 17:20 Sodium 145 mmol/L (136-145) 10/25/20 07:20 Potassium 3.7 mmol/L (3.5-5.1) 10/25/20 07:20 Chloride 113 mmol/L (98-107) H 10/25/20 07:20 Carbon Dioxide 25 mmol/L (23-31) 10/25/20 07:20 BUN 20 mg/dL (8.4-25.7) 10/25/20 07:20 Creatinine 0.99 mg/dL (0.7-1.3) 10/25/20 07:20 Glucose 128 mg/dL (83-110) H 10/25/20 07:20 Lactic Acid 1.7 mmol/L (0.5-2.2) 10/20/20 03:40 Calcium 7.5 mg/dL (7.8-10.44) L 10/25/20 07:20 Total Bilirubin 0.5 mg/dL (0.2-1.2) 10/20/20 03:40 AST 42 U/L (5-34) H 10/20/20 03:40 ALT 41 U/L (8-55) 10/20/20 03:40 Alkaline Phosphatase 64 U/L (40-110) 10/20/20 03:40 Creatine Kinase 408 U/L (30-200) H 10/24/20 10:48 Troponin I 0.278 ng/mL (< 0.028) H 10/18/20 19:21 Serum Total Protein 5.2 g/dL (5.8-8.1) L 10/20/20 03:40 Albumin 2.3 g/dL (3.4-4.8) L 10/25/20 07:20 Sodium 145 mmol/L (136-145) 10/25/20 07:20 Potassium 3.7 mmol/L (3.5-5.1) 10/25/20 07:20 Chloride 113 mmol/L (98-107) H 10/25/20 07:20 Carbon Dioxide 25 mmol/L (23-31) 10/25/20 07:20 Anion Gap 11 mmol/L (10-20) 10/25/20 07:20 BUN 20 mg/dL (8.4-25.7) 10/25/20 07:20 Creatinine 0.99 mg/dL (0.7-1.3) 10/25/20 07:20 Glucose 128 mg/dL (83-110) H 10/25/20 07:20 Calcium 7.5 mg/dL (7.8-10.44) L 10/25/20 07:20 Phosphorus 2.2 mg/dL (2.3-4.7) L 10/25/20 07:20 Magnesium 1.9 mg/dL (1.6-2.6) 10/24/20 10:48 Albumin 2.3 g/dL (3.4-4.8) L 10/25/20 07:20 Nephrology AP PN - Plan Acute renal failure with marked azotemia: Due to hemodynamic factors related to severe dehydration, and bactrim and lisinopril use, and rhabdomyolysis. Creat continue to trend down. Almost at baseline. Severe dehydration : resolved Hypernatremia: Due to free water deficit from poor oral intake and diuretic use. Improved. serum now 145 Severe metabolic acidosis: 2/2 Acute renal failure and metformin use. Resolved Rhabdomyolysis: Improved. Encephalopathy.Due to ARF and electrolyte derangement superimposed on dementia Hypokalemia: repleted Hx of HTN Hx of Dementia Hypophosphatemia: persists Paraphimosis Vit D deficiency PLAN Increase amlodipine to 10 mg daily to get adequate BP control Decrease free water flushes to 300 q2h. DC alkali therapy Start per tube phosphate supplementation Avoid nehrotoxic agents including metformin, lisinopril and diuretics. Other treatments as per primary attending. Follow electrolytes and renal function
[2020-10-25] MEDS ORDERED: Furosemide 40 MG/4 ML VIAL SLOW IVP SCH (15:15)
--- NOTE | 2020-10-25 15:15 | PDOC.HOSPP ---
- Subjective Encounter Date: 10/25/20 Encounter Time: 13:00 Subjective: awake, not in distress - Objective Vital Signs & Weight: Vital Signs (12 hours) Temp Pulse Resp BP BP Pulse Ox 10/25/20 12:02 99.0 F 58 L 24 H 148/66 H 94 L 10/25/20 08:56 68 167/74 H 10/25/20 08:00 97 10/25/20 07:57 98.5 F 68 24 H 167/74 H 97 10/25/20 04:00 98.5 F 60 18 168/71 H 97 Weight Admit Weight 138 lb Weight 171 lb Most Recent Monitor Data Heart Rate from ECG 95 NIBP 135/59 NIBP BP-Mean 84 Respiration from ECG 26 SpO2 100 I&O: 10/24/20 10/25/20 10/26/20 06:59 06:59 06:59 Intake Total 2523 6349 1090 Output Total 825 1885 Balance 1698 4464 1090 Result Diagrams: 10/25/20 05:43 10/25/20 07:20 Additional Labs: Accuchecks 10/25/20 10/25/20 10/24/20 11:11 05:31 23:54 POC Glucose 129 H 126 H 136 H 10/24/20 16:59 POC Glucose 125 H Hospitalist ROS - Medication Medications: Active Medications Generic Name Dose Route Start Last Admin Trade Name Freq PRN Reason Stop Dose Admin Acetaminophen 650 mg 10/22/20 09:55 10/23/20 22:26 Acetaminophen 650 Mg/20.3 Ml Udcup PO 650 mg Q4H PRN Administration pain/fever Allopurinol 100 mg 10/25/20 09:00 10/25/20 08:56 Allopurinol 100 Mg Tab PO 100 mg DAILY [facility] Administration Amlodipine Besylate 10 mg 10/25/20 09:00 10/25/20 08:56 Amlodipine 10 Mg Tab PO 10 mg DAILY [facility] Administration Ascorbic Acid 500 mg 10/25/20 09:00 10/25/20 08:56 Ascorbic Acid 500 Mg Chewable Tablet PO 500 mg DAILY [facility] Administration Aspirin 81 mg 10/20/20 09:00 10/25/20 08:56 Aspirin Chewable 81 Mg Tab PER TUBE 81 mg DAILY [facility] Administration Atorvastatin Calcium 20 mg 10/25/20 09:00 10/25/20 08:57 Atorvastatin Calcium 40 Mg Tab PO 20 mg DAILY [facility] Administration Cyanocobalamin 1,000 mcg 10/22/20 09:00 10/25/20 08:57 Cyanocobalamin (Vitamin B-12) 1,000 Mcg Tab PER TUBE 1,000 mcg DAILY [facility] Administration Dorzolamide HCl 1 drop 10/25/20 09:00 10/25/20 09:14 Dorzolamide Hcl 2% Ophth Soln 10 Ml Bottle EA EYE 1 drop BID [facility] Administration Ergocalciferol 1.25 mg 10/21/20 09:00 10/21/20 11:20 Ergocalciferol 1.25 Mg(50,000 Units) Cap PO 1.25 mg Q7DAYS [facility] Administration Folic Acid 1 mg 10/19/20 21:00 10/24/20 20:30 Folic Acid 1 Mg Tab PER TUBE 1 mg HS [facility] Administration Heparin Sodium (Porcine) 5,000 units 10/18/20 21:00 10/25/20 09:18 Heparin 5,000 Units/Ml Vial SC Not Given BID [facility] Sodium Chloride 1,000 mls @ 999 mls/hr 10/19/20 01:00 10/19/20 00:52 Normal Saline 0.9% IV 10/19/20 02:00 1,000 mls .Q1H1M [facility] Administration Meropenem 1 gm/ Device 50 mls @ 100 mls/hr 10/22/20 11:00 10/25/20 10:22 IVPB 50 mls 1100,2300 [facility] Administration Influenza Virus Vaccine Quadrival 240 mcg 10/19/20 09:00 10/19/20 10:32 Flu Vacc [id number](65yr Up)/Pf 240 Mcg/0.7 Ml Syringe IM 10/19/20 09:01 Not Given .ONCE ONE Insulin Human Regular 0 units 10/19/20 11:50 10/22/20 11:16 Insulin Regular 300 Units/3 Ml Vial SC 2 unit .MODERATE SLIDING SC PRN Administration Moderate Correctional Scale Latanoprost 1 drop 10/19/20 21:00 10/24/20 20:30 Latanoprost 0.005% Ophth Soln 2.5 Ml Bottle EA EYE 1 drop HS [facility] Administration Memantine 10 mg 10/25/20 09:00 10/25/20 08:58 Memantine Hcl 10 Mg Tab PO 10 mg DAILY [facility] Administration Metoprolol Tartrate 50 mg 02/21/21 09:00 10/25/20 08:58 Metoprolol Tartrate 50 Mg Tab PO 50 mg BID [facility] Administration Multivitamins 1 tab 10/19/20 21:00 10/24/20 20:29 Multivit, Therapeutic 1 Tab PER TUBE 1 tab HS [facility] Administration Nystatin 0 gm 10/25/20 21:00 10/25/20 13:19 Nystatin Powder 15 Gm Bot TOP 1 applic BID [facility] Administration Pantoprazole Sodium 40 mg 10/25/20 09:00 10/25/20 08:58 Pantoprazole 40 Mg Granules Packet PER TUBE 40 mg DAILY [facility] Administration Rivastigmine 9.5 mg 10/25/20 09:00 10/25/20 09:14 Rivastigmine 9.5mg/24 Hour Patch TD 9.5 mg DAILY [facility] Administration Scopolamine 1.5 mg 10/21/20 16:00 10/24/20 15:18 Scopolamine 1.5 Mg/72 Hour Patch TD 1.5 mg Q3D [facility] Administration Sodium Bicarbonate 50 meq 10/19/20 01:15 10/19/20 10:32 Sodium Bicarb 50 Meq/50 Ml Abboject 8.4% Syringe IVP 10/19/20 03:15 Not Given NOW [facility] Sodium Chloride 10 ml 10/22/20 09:00 10/25/20 09:01 Flush - Normal Saline 10 Ml Syringe IVF 10 ml Q12HR [facility] Administration Thiamine HCl 100 mg 10/19/20 21:00 10/24/20 20:29 Thiamine 100 Mg Tab PER TUBE 100 mg HS [facility] Administration Timolol Maleate 1 drop 10/20/20 09:00 10/25/20 08:59 Timolol 0.25% Ophth Soln 5 Ml Bottle EA EYE 1 drop BID [facility] Administration Hospitalist Exam Vitals: Vital Signs (12 hours) Temp Pulse Resp BP BP Pulse Ox 10/25/20 12:02 99.0 F 58 L 24 H 148/66 H 94 L 10/25/20 08:56 68 167/74 H 10/25/20 08:00 97 10/25/20 07:57 98.5 F 68 24 H 167/74 H 97 10/25/20 04:00 98.5 F 60 18 168/71 H 97 Weight Admit Weight 138 lb Weight 171 lb Most Recent Monitor Data Heart Rate from ECG 95 NIBP 135/59 NIBP BP-Mean 84 Respiration from ECG 26 SpO2 100 Eye: PERRL, anicteric sclera ENT: no oropharyngeal lesions, moist mucosa Neck: supple, no JVD Heart: RRR, no murmur Respiratory: no wheezes, no rales, rhonchi Gastrointestinal: soft, non-tender, normal bowel sounds Gastrointestinal - other findings: lower abd wall, penile and scrotal edema Extremities: 1+ LE edema Neurological: cranial nerve grossly intact, no new deficit Hosp A/P (1) Acute metabolic encephalopathy Code(s): G93.41 - METABOLIC ENCEPHALOPATHY Status: Acute (2) Dysphagia Code(s): R13.10 - DYSPHAGIA, UNSPECIFIED Status: Acute Qualifiers: Dysphagia type: oropharyngeal phase Qualified Code(s): R13.12 - Dysphagia, oropharyngeal phase (3) Hyperosmolality and hypernatremia Code(s): E87.0 - HYPEROSMOLALITY AND HYPERNATREMIA Status: Resolved (4) Hypokalemia Code(s): E87.6 - HYPOKALEMIA Status: Resolved (5) Metabolic acidosis Code(s): E87.2 - ACIDOSIS Status: Resolved (6) Rhabdomyolysis Code(s): M62.82 - RHABDOMYOLYSIS Status: Resolved Qualifiers: Rhabdomyolysis type: non-traumatic Qualified Code(s): M62.82 - Rhabdomyolysis (7) Sacral decubitus ulcer, stage II Code(s): L89.152 - PRESSURE ULCER OF SACRAL REGION, STAGE 2 Status: Chronic (8) Dehydration Code(s): E86.0 - DEHYDRATION Status: Resolved (9) Alzheimer's dementia Code(s): G30.9 - ALZHEIMER'S DISEASE, UNSPECIFIED; F02.80 - DEMENTIA IN OTH DISEASES CLASSD ELSWHR W/O BEHAVRL DISTURB Status: Chronic Qualifiers: Alzheimer's disease onset: unspecified onset (10) BPH (benign prostatic hyperplasia) Code(s): N40.0 - BENIGN PROSTATIC HYPERPLASIA WITHOUT LOWER URINRY TRACT SYMP Status: Chronic Qualifiers: Lower urinary tract symptom presence: symptoms absent Qualified Code(s): N40.0 - Benign prostatic hyperplasia without lower urinary tract symptoms (11) DM2 (diabetes mellitus, type 2) Status: Chronic Qualifiers: Diabetes mellitus terminal press operator insulin use: without terminal press operator use (12) Glaucoma Code(s): H40.9 - UNSPECIFIED GLAUCOMA Status: Chronic (13) HLD (hyperlipidemia) Code(s): E78.5 - HYPERLIPIDEMIA, UNSPECIFIED Status: Chronic Qualifiers: Hyperlipidemia type: mixed hyperlipidemia Qualified Code(s): E78.2 - Mixed hyperlipidemia (14) HTN (hypertension) Code(s): I10 - ESSENTIAL (PRIMARY) HYPERTENSION Status: Chronic Qualifiers: Hypertension type: essential hypertension Qualified Code(s): I10 - Essential (primary) hypertension - Plan reduce free water via peg to 200ml qid, continue 6 cans of peg feeding, one dose lasix due to worsening edema in lower abd wall, scrotal and penile area. on meropenem for suspicion of asp pna will switch to augmentin in am, nebs, scopalamine tts continue asp, vit B12 s/p peg on 10/23 dc plan in am to [facility] d/w pily and gave full updates, code status was revisited, she wants him to be full code on 10/24/20. prognosis is poor given advanced age, dysphagia, dementia, bed bound status, encephalopathic and [place] resident
[2020-10-25] MEDS: PHOS-NAK 1 PKT PACK PER TUBE SCH ×2 (15:33→21:58)
[2020-10-25] MEDS: Donepezil HCl 10 MG TAB PO SCH (21:58)
[2020-10-25] MEDS: Thiamine 100 MG TAB PER TUBE SCH (21:58)
[2020-10-25] MEDS: Melatonin 3 MG TAB PO SCH (21:58)
[2020-10-25] MEDS: Folic Acid 1 MG TAB PER TUBE SCH (21:59)
[2020-10-25] MEDS: Multivit, Therapeutic 1 TAB PER TUBE SCH (21:59)
[2020-10-25] MEDS: Latanoprost 0.005% Ophth Soln 2.5 ml Bottle EA EYE SCH (22:01)
[2020-10-26] MEDS: MEROPENEM 1 GM/50 ML 1 GM in Premix Bag 1 BAG IVPB SCH ×2 (01:19→11:58)
[2020-10-26 05:32] LABS: Albumin 2.2 g/dL (3.4-4.8); Anion Gap 12 mmol/L (10-20); BUN (Urea Nitrogen) 21 mg/dL (8.4-25.7); BUN/Creatinine Ratio 18.92; Calc. Creatinine Clearance 58 mL/min (70-130); Calcium 7.3 mg/dL (7.8-10.44); Carbon Dioxide 25 mmol/L (23-31); Chloride 111 mmol/L (98-107); Glucose 159 mg/dL (83-110); Phosphorus 2.5 mg/dL (2.3-4.7); Potassium 3.9 mmol/L (3.5-5.1); Sodium 144 mmol/L (136-145)
[2020-10-26 08:08] LABS: Hemoglobin 8.8 g/dL (14.0-18.0); Mean Corpuscular HGB CONC 32.2 g/dL (32.0-36.0); Mean Corpuscular Hemoglobin 26.8 pg (27.0-31.0); Mean Corpuscular Volume 83.1 fL (78.0-98.0); Mean Platelet Volume 9.5 fL (7.4-10.4); Platelet Count 153 thou/uL (130-400); Red Blood Cell (RBC) Count 3.27 mill/uL (4.70-6.10); White Blood Cell (WBC) Count 8.9 thou/uL (4.8-10.8)
[2020-10-26] MEDS: Allopurinol 100 MG TAB PO SCH (09:08)
[2020-10-26] MEDS: Atorvastatin Calcium 40 MG TAB PO SCH (09:12)
[2020-10-26] MEDS: Aspirin Chewable 81 MG TAB PER TUBE SCH (09:12)
[2020-10-26] MEDS: Ascorbic Acid 500 mg Chewable Tablet PO SCH (09:12)
[2020-10-26] MEDS: Cyanocobalamin (Vitamin B-12) 1,000 MCG TAB PER TUBE SCH (09:13)
[2020-10-26] MEDS: Heparin 5,000 UNITS/ML VIAL SC SCH ×2 (09:14→22:25)
[2020-10-26] MEDS: Dorzolamide HCl 2% Ophth Soln 10 ml Bottle EA EYE SCH ×2 (09:14→22:28)
[2020-10-26] MEDS: Metoprolol Tartrate 50 MG TAB PO SCH ×2 (09:15→22:25)
[2020-10-26] MEDS: Nystatin Powder 15 GM BOT TOP SCH ×2 (09:15→22:27)
[2020-10-26] MEDS: PHOS-NAK 1 PKT PACK PER TUBE SCH ×3 (09:16→22:26)
[2020-10-26] MEDS: Pantoprazole 40 MG GRANULES PACKET PER TUBE SCH (09:16)
[2020-10-26] MEDS: Rivastigmine 9.5mg/24 Hour PATCH TD SCH (09:16)
[2020-10-26] MEDS: Timolol 0.25% Ophth Soln 5 ml Bottle EA EYE SCH ×2 (09:17→22:28)
[2020-10-26] MEDS: Amlodipine 10 MG TAB PO SCH (09:35)
--- NOTE | 2020-10-26 11:15 | PDOC.NEPPN ---
- Subjective Encounter Date: 10/26/20 Subjective: Seen and examined. No new problem. Responsiding more and answeing some simple questions. tolerating tube feeds and free water flushes - Objective Vital Signs & Weight: Vital Signs (12 hours) Temp Pulse Resp BP BP Pulse Ox 10/26/20 09:35 71 129/64 10/26/20 08:14 99 F 71 15 129/64 91 L 10/26/20 04:12 98.7 F 60 25 H 110/56 L 96 10/26/20 03:29 96 10/26/20 00:00 98.2 F 78 15 154/64 H 96 Weight Admit Weight 138 lb Weight 168 lb 9 oz Most Recent Monitor Data Heart Rate from ECG 95 NIBP 135/59 NIBP BP-Mean 84 Respiration from ECG 26 SpO2 100 I&O: 10/25/20 10/26/20 10/27/20 06:59 06:59 06:59 Intake Total 6349 4030 1080 Output Total 1885 3900 Balance 4464 130 1080 Result Diagrams: 10/26/20 07:35 10/26/20 05:12 Additional Labs: Accuchecks 10/25/20 10/25/20 10/25/20 23:21 18:07 11:11 POC Glucose 129 H 141 H 129 H Nephrology ROS - Medication Medications: Active Medications Generic Name Dose Route Start Last Admin Trade Name Freq PRN Reason Stop Dose Admin Acetaminophen 650 mg 10/22/20 09:55 10/23/20 22:26 Acetaminophen 650 Mg/20.3 Ml Udcup PO 650 mg Q4H PRN Administration pain/fever Allopurinol 100 mg 10/25/20 09:00 10/26/20 09:08 Allopurinol 100 Mg Tab PO 100 mg DAILY [facility] Administration Amlodipine Besylate 10 mg 10/25/20 09:00 10/26/20 09:35 Amlodipine 10 Mg Tab PO 10 mg DAILY [facility] Administration Ascorbic Acid 500 mg 10/25/20 09:00 10/26/20 09:12 Ascorbic Acid 500 Mg Chewable Tablet PO 500 mg DAILY [facility] Administration Aspirin 81 mg 10/20/20 09:00 10/26/20 09:12 Aspirin Chewable 81 Mg Tab PER TUBE 81 mg DAILY [facility] Administration Atorvastatin Calcium 20 mg 10/25/20 09:00 10/26/20 09:12 Atorvastatin Calcium 40 Mg Tab PO 20 mg DAILY [facility] Administration Cyanocobalamin 1,000 mcg 10/22/20 09:00 10/26/20 09:13 Cyanocobalamin (Vitamin B-12) 1,000 Mcg Tab PER TUBE 1,000 mcg DAILY [facility] Administration Donepezil HCl 10 mg 10/25/20 21:00 10/25/20 21:58 Donepezil Hcl 10 Mg Tab PO 10 mg HS [facility] Administration Dorzolamide HCl 1 drop 10/25/20 09:00 10/26/20 09:14 Dorzolamide Hcl 2% Ophth Soln 10 Ml Bottle EA EYE 1 drop BID [facility] Administration Ergocalciferol 1.25 mg 10/21/20 09:00 10/21/20 11:20 Ergocalciferol 1.25 Mg(50,000 Units) Cap PO 1.25 mg Q7DAYS [facility] Administration Folic Acid 1 mg 10/19/20 21:00 10/25/20 21:59 Folic Acid 1 Mg Tab PER TUBE 1 mg HS [facility] Administration Heparin Sodium (Porcine) 5,000 units 10/18/20 21:00 10/26/20 09:14 Heparin 5,000 Units/Ml Vial SC 5,000 units BID [facility] Administration Sodium Chloride 1,000 mls @ 999 mls/hr 10/19/20 01:00 10/19/20 00:52 Normal Saline 0.9% IV 10/19/20 02:00 1,000 mls .Q1H1M [facility] Administration Meropenem 1 gm/ Device 50 mls @ 100 mls/hr 10/22/20 11:00 10/26/20 01:19 IVPB 50 mls 1100,2300 [facility] Administration Influenza Virus Vaccine Quadrival 240 mcg 10/19/20 09:00 10/19/20 10:32 Flu Vacc [id number](65yr Up)/Pf 240 Mcg/0.7 Ml Syringe IM 10/19/20 09:01 Not Given .ONCE ONE Insulin Human Regular 0 units 10/19/20 11:50 10/22/20 11:16 Insulin Regular 300 Units/3 Ml Vial SC 2 unit .MODERATE SLIDING SC PRN Administration Moderate Correctional Scale Latanoprost 1 drop 10/19/20 21:00 10/25/20 22:01 Latanoprost 0.005% Ophth Soln 2.5 Ml Bottle EA EYE 1 drop HS [facility] Administration Melatonin 3 mg 10/25/20 21:00 10/25/20 21:58 Melatonin 3 Mg Tab PO 3 mg HS [facility] Administration Memantine 10 mg 10/25/20 09:00 10/26/20 09:15 Memantine Hcl 10 Mg Tab PO 10 mg DAILY [facility] Administration Metoprolol Tartrate 50 mg 10/25/20 09:00 10/26/20 09:15 Metoprolol Tartrate 50 Mg Tab PO 50 mg BID [facility] Administration Miscellaneous Medication 1 pkt 10/25/20 15:00 10/26/20 09:16 Phos-Nak 1 Pkt Pack PER TUBE 10/27/20 15:01 1 pkt TID [facility] Administration Multivitamins 1 tab 10/19/20 21:00 10/25/20 21:59 Multivit, Therapeutic 1 Tab PER TUBE 1 tab HS [facility] Administration Nystatin 0 gm 10/25/20 21:00 10/26/20 09:15 Nystatin Powder 15 Gm Bot TOP 1 applic BID [facility] Administration Pantoprazole Sodium 40 mg 10/25/20 09:00 10/26/20 09:16 Pantoprazole 40 Mg Granules Packet PER TUBE 40 mg DAILY [facility] Administration Rivastigmine 9.5 mg 10/25/20 09:00 10/26/20 09:16 Rivastigmine 9.5mg/24 Hour Patch TD 9.5 mg DAILY [facility] Administration Scopolamine 1.5 mg 10/21/20 16:00 10/24/20 15:18 Scopolamine 1.5 Mg/72 Hour Patch TD 1.5 mg Q3D [facility] Administration Sodium Bicarbonate 50 meq 10/19/20 01:15 10/19/20 10:32 Sodium Bicarb 50 Meq/50 Ml Abboject 8.4% Syringe IVP 10/19/20 03:15 Not Given NOW [facility] Sodium Chloride 10 ml 10/22/20 09:00 10/26/20 09:16 Flush - Normal Saline 10 Ml Syringe IVF 10 ml Q12HR [facility] Administration Thiamine HCl 100 mg 10/19/20 21:00 10/25/20 21:58 Thiamine 100 Mg Tab PER TUBE 100 mg HS [facility] Administration Timolol Maleate 1 drop 10/20/20 09:00 10/26/20 09:17 Timolol 0.25% Ophth Soln 5 Ml Bottle EA EYE 1 drop BID [facility] Administration - Exam General - other findings: sleeping but easily arousable. ENT: normocephalic atraumatic, moist mucosa Neck: supple, symmetric Respiratory - other findings: fair air entry bilaterallt. No distress Cardiovascular: RRR Gastrointestinal: soft, non-tender, non-distended, normal bowel sounds Gastrointestinal - other findings: PEG tube noted Extremities - other findings: extremity fuullness noted Neurological: CN's grossly intact Neurological - other findings: verbalizing some. oriented to person at least Nephrology Results - Labs Result Diagrams: 10/26/20 07:35 10/26/20 05:12 Lab results: WBC 8.9 thou/uL (4.8-10.8) 10/26/20 07:35 Hgb 8.8 g/dL (14.0-18.0) L 10/26/20 07:35 Hct 27.2 % (42.0-52.0) L 10/26/20 07:35 MCV 83.1 fL (78.0-98.0) 10/26/20 07:35 Plt Count 153 thou/uL (130-400) 10/26/20 07:35 Neutrophils % 85.0 % (42.0-75.0) H 10/18/20 17:14 Band Neuts % (Manual) 2 % (5-11) L 10/25/20 05:43 ABG pH 7.26 (7.35-7.45) L 10/18/20 17:20 ABG pCO2 25.9 mmHg (35.0-45.0) L* 10/18/20 17:20 ABG pO2 91.7 mmHg (> 60.0) H 10/18/20 17:20 Sodium 144 mmol/L (136-145) 10/26/20 05:12 Potassium 3.9 mmol/L (3.5-5.1) 10/26/20 05:12 Chloride 111 mmol/L (98-107) H 10/26/20 05:12 Carbon Dioxide 25 mmol/L (23-31) 10/26/20 05:12 BUN 21 mg/dL (8.4-25.7) 10/26/20 05:12 Creatinine 1.11 mg/dL (0.7-1.3) 10/26/20 05:12 Glucose 159 mg/dL (83-110) H 10/26/20 05:12 Lactic Acid 1.7 mmol/L (0.5-2.2) 10/20/20 03:40 Calcium 7.3 mg/dL (7.8-10.44) L 10/26/20 05:12 Total Bilirubin 0.5 mg/dL (0.2-1.2) 10/20/20 03:40 AST 42 U/L (5-34) H 10/20/20 03:40 ALT 41 U/L (8-55) 10/20/20 03:40 Alkaline Phosphatase 64 U/L (40-110) 10/20/20 03:40 Creatine Kinase 408 U/L (30-200) H 10/24/20 10:48 Troponin I 0.278 ng/mL (< 0.028) H 10/18/20 19:21 Serum Total Protein 5.2 g/dL (5.8-8.1) L 10/20/20 03:40 Albumin 2.2 g/dL (3.4-4.8) L 10/26/20 05:12 Sodium 144 mmol/L (136-145) 10/26/20 05:12 Potassium 3.9 mmol/L (3.5-5.1) 10/26/20 05:12 Chloride 111 mmol/L (98-107) H 10/26/20 05:12 Carbon Dioxide 25 mmol/L (23-31) 10/26/20 05:12 Anion Gap 12 mmol/L (10-20) 10/26/20 05:12 BUN 21 mg/dL (8.4-25.7) 10/26/20 05:12 Creatinine 1.11 mg/dL (0.7-1.3) 10/26/20 05:12 Glucose 159 mg/dL (83-110) H 10/26/20 05:12 Calcium 7.3 mg/dL (7.8-10.44) L 10/26/20 05:12 Phosphorus 2.5 mg/dL (2.3-4.7) 10/26/20 05:12 Magnesium 1.9 mg/dL (1.6-2.6) 10/24/20 10:48 Albumin 2.2 g/dL (3.4-4.8) L 10/26/20 05:12 Nephrology AP PN - Plan Acute renal failure with marked azotemia: Due to hemodynamic factors related to severe dehydration, and bactrim and lisinopril use, and rhabdomyolysis. Improved. Severe dehydration : resolved Hypernatremia: Due to free water deficit from poor oral intake and diuretic use. Resolved Severe metabolic acidosis: 2/2 Acute renal failure and metformin use. Resolved Rhabdomyolysis: Resolved Encephalopathy.Due to ARF and electrolyte derangement superimposed on dementia. Improving. Hypokalemia: repleted HTN: Control is better Hx of Dementia Hypophosphatemia: Vit D deficiency PLAN Decrease free water flushess to 300 every 4 hours Continue amlodipine and metoprolol adequate BP control Avoid nehrotoxic agents including metformin, lisinopril and diuretics. Other treatments as per primary attending. Follow electrolytes and renal function
--- NOTE | 2020-10-26 12:29 | PDOC.HOSPP ---
- Subjective Encounter Date: 10/26/20 Encounter Time: 12:00 Subjective: sitting on bed with support, does not interact with me is trying to work with PT - Objective Vital Signs & Weight: Vital Signs (12 hours) Temp Pulse Resp BP BP BP Pulse Ox 10/26/20 11:45 98.2 F 64 22 H 120/61 10/26/20 09:35 71 129/64 10/26/20 08:14 99 F 71 15 129/64 91 L 10/26/20 04:12 98.7 F 60 25 H 110/56 L 96 10/26/20 03:29 96 Weight Admit Weight 138 lb Weight 168 lb 9 oz Most Recent Monitor Data Heart Rate from ECG 95 NIBP 135/59 NIBP BP-Mean 84 Respiration from ECG 26 SpO2 100 I&O: 10/25/20 10/26/20 10/27/20 06:59 06:59 06:59 Intake Total 6349 4030 1080 Output Total 1885 3900 Balance 4464 130 1080 Result Diagrams: 10/26/20 07:35 10/26/20 05:12 Additional Labs: Accuchecks 10/26/20 10/25/20 10/25/20 12:03 23:21 18:07 POC Glucose 130 H 129 H 141 H Hospitalist ROS - Medication Medications: Active Medications Generic Name Dose Route Start Last Admin Trade Name Freq PRN Reason Stop Dose Admin Acetaminophen 650 mg 10/22/20 09:55 10/23/20 22:26 Acetaminophen 650 Mg/20.3 Ml Udcup PO 650 mg Q4H PRN Administration pain/fever Allopurinol 100 mg 10/25/20 09:00 10/26/20 09:08 Allopurinol 100 Mg Tab PO 100 mg DAILY ALTAGRACIA Administration Amlodipine Besylate 10 mg 10/25/20 09:00 10/26/20 09:35 Amlodipine 10 Mg Tab PO 10 mg DAILY ALTAGRACIA Administration Ascorbic Acid 500 mg 10/25/20 09:00 10/26/20 09:12 Ascorbic Acid 500 Mg Chewable Tablet PO 500 mg DAILY ALTAGRACIA Administration Aspirin 81 mg 10/20/20 09:00 10/26/20 09:12 Aspirin Chewable 81 Mg Tab PER TUBE 81 mg DAILY ALTGARACIA Administration Atorvastatin Calcium 20 mg 10/25/20 09:00 10/26/20 09:12 Atorvastatin Calcium 40 Mg Tab PO 20 mg DAILY ALTAGRACIA Administration Cyanocobalamin 1,000 mcg 10/22/20 09:00 10/26/20 09:13 Cyanocobalamin (Vitamin B-12) 1,000 Mcg Tab PER TUBE 1,000 mcg DAILY ALTAGRACIA Administration Donepezil HCl 10 mg 10/25/20 21:00 10/25/20 21:58 Donepezil Hcl 10 Mg Tab PO 10 mg HS ALTAGRACIA Administration Dorzolamide HCl 1 drop 10/25/20 09:00 10/26/20 09:14 Dorzolamide Hcl 2% Ophth Soln 10 Ml Bottle EA EYE 1 drop BID ALTAGRACIA Administration Ergocalciferol 1.25 mg 10/21/20 09:00 10/21/20 11:20 Ergocalciferol 1.25 Mg(50,000 Units) Cap PO 1.25 mg Q7DAYS ALTAGRACIA Administration Folic Acid 1 mg 10/19/20 21:00 10/25/20 21:59 Folic Acid 1 Mg Tab PER TUBE 1 mg HS ALTAGRACIA Administration Heparin Sodium (Porcine) 5,000 units 10/18/20 21:00 10/26/20 09:14 Heparin 5,000 Units/Ml Vial SC 5,000 units BID ALTAGRACIA Administration Sodium Chloride 1,000 mls @ 999 mls/hr 10/19/20 01:00 10/19/20 00:52 Normal Saline 0.9% IV 10/19/20 02:00 1,000 mls .Q1H1M ALTAGRACIA Administration Meropenem 1 gm/ Device 50 mls @ 100 mls/hr 10/22/20 11:00 10/26/20 11:58 IVPB 50 mls 1100,2300 ALTAGRACIA Administration Influenza Virus Vaccine Quadrival 240 mcg 10/19/20 09:00 10/19/20 10:32 Flu Vacc [id number](65yr Up)/Pf 240 Mcg/0.7 Ml Syringe IM 10/19/20 09:01 Not Given .ONCE ONE Insulin Human Regular 0 units 10/19/20 11:50 10/22/20 11:16 Insulin Regular 300 Units/3 Ml Vial SC 2 unit .MODERATE SLIDING SC PRN Administration Moderate Correctional Scale Latanoprost 1 drop 10/19/20 21:00 10/25/20 22:01 Latanoprost 0.005% Ophth Soln 2.5 Ml Bottle EA EYE 1 drop HS ALTAGRACIA Administration Melatonin 3 mg 10/25/20 21:00 10/25/20 21:58 Melatonin 3 Mg Tab PO 3 mg HS ALTAGRACIA Administration Memantine 10 mg 10/25/20 09:00 10/26/20 09:15 Memantine Hcl 10 Mg Tab PO 10 mg DAILY ALTAGRACIA Administration Metoprolol Tartrate 50 mg 10/25/20 09:00 10/26/20 09:15 Metoprolol Tartrate 50 Mg Tab PO 50 mg BID ALTAGRACIA Administration Miscellaneous Medication 1 pkt 10/25/20 15:00 10/26/20 09:16 Phos-Nak 1 Pkt Pack PER TUBE 10/27/20 15:01 1 pkt TID ALTAGRACIA Administration Multivitamins 1 tab 10/19/20 21:00 10/25/20 21:59 Multivit, Therapeutic 1 Tab PER TUBE 1 tab HS ALTAGRACIA Administration Nystatin 0 gm 10/25/20 21:00 10/26/20 09:15 Nystatin Powder 15 Gm Bot TOP 1 applic BID ALTAGRACIA Administration Pantoprazole Sodium 40 mg 10/25/20 09:00 10/26/20 09:16 Pantoprazole 40 Mg Granules Packet PER TUBE 40 mg DAILY ALTAGRACIA Administration Rivastigmine 9.5 mg 10/25/20 09:00 10/26/20 09:16 Rivastigmine 9.5mg/24 Hour Patch TD 9.5 mg DAILY ALTAGRACIA Administration Scopolamine 1.5 mg 10/21/20 16:00 10/24/20 15:18 Scopolamine 1.5 Mg/72 Hour Patch TD 1.5 mg Q3D ALTAGRACIA Administration Sodium Bicarbonate 50 meq 10/19/20 01:15 10/19/20 10:32 Sodium Bicarb 50 Meq/50 Ml Abboject 8.4% Syringe IVP 10/19/20 03:15 Not Given NOW ALTAGRACIA Sodium Chloride 10 ml 10/22/20 09:00 10/26/20 09:16 Flush - Normal Saline 10 Ml Syringe IVF 10 ml Q12HR ALTAGRACIA Administration Thiamine HCl 100 mg 10/19/20 21:00 10/25/20 21:58 Thiamine 100 Mg Tab PER TUBE 100 mg HS ALTAGRACIA Administration Timolol Maleate 1 drop 10/20/20 09:00 10/26/20 09:17 Timolol 0.25% Ophth Soln 5 Ml Bottle EA EYE 1 drop BID ALTAGRACIA Administration Hospitalist Exam Vitals: Vital Signs (12 hours) Temp Pulse Resp BP BP BP Pulse Ox 10/26/20 11:45 98.2 F 64 22 H 120/61 10/26/20 09:35 71 129/64 10/26/20 08:14 99 F 71 15 129/64 91 L 10/26/20 04:12 98.7 F 60 25 H 110/56 L 96 10/26/20 03:29 96 Weight Admit Weight 138 lb Weight 168 lb 9 oz Most Recent Monitor Data Heart Rate from ECG 95 NIBP 135/59 NIBP BP-Mean 84 Respiration from ECG 26 SpO2 100 General Appearance: ill appearing Eye: PERRL, anicteric sclera ENT: no oropharyngeal lesions, moist mucosa Neck: supple, no JVD Heart: RRR, no murmur Respiratory: no wheezes, no rales Gastrointestinal: soft, non-tender, non-distended, normal bowel sounds Gastrointestinal - other findings: penile and scrotal edema, has lower abd wall edema Extremities: no cyanosis, 1+ LE edema Neurological: cranial nerve grossly intact, no focal deficits Hosp A/P (1) Acute metabolic encephalopathy Code(s): G93.41 - METABOLIC ENCEPHALOPATHY Status: Acute (2) Dysphagia Code(s): R13.10 - DYSPHAGIA, UNSPECIFIED Status: Acute Qualifiers: Dysphagia type: oropharyngeal phase Qualified Code(s): R13.12 - Dysphagia, oropharyngeal phase (3) Hyperosmolality and hypernatremia Code(s): E87.0 - HYPEROSMOLALITY AND HYPERNATREMIA Status: Resolved (4) Hypokalemia Code(s): E87.6 - HYPOKALEMIA Status: Resolved (5) Metabolic acidosis Code(s): E87.2 - ACIDOSIS Status: Resolved (6) Rhabdomyolysis Code(s): M62.82 - RHABDOMYOLYSIS Status: Resolved Qualifiers: Rhabdomyolysis type: non-traumatic Qualified Code(s): M62.82 - Rhabdomyolysis (7) Sacral decubitus ulcer, stage II Code(s): L89.152 - PRESSURE ULCER OF SACRAL REGION, STAGE 2 Status: Chronic (8) Dehydration Code(s): E86.0 - DEHYDRATION Status: Resolved (9) Alzheimer's dementia Code(s): G30.9 - ALZHEIMER'S DISEASE, UNSPECIFIED; F02.80 - DEMENTIA IN OTH DISEASES CLASSD ELSWHR W/O BEHAVRL DISTURB Status: Chronic Qualifiers: Alzheimer's disease onset: unspecified onset (10) BPH (benign prostatic hyperplasia) Code(s): N40.0 - BENIGN PROSTATIC HYPERPLASIA WITHOUT LOWER URINRY TRACT SYMP Status: Chronic Qualifiers: Lower urinary tract symptom presence: symptoms absent Qualified Code(s): N40.0 - Benign prostatic hyperplasia without lower urinary tract symptoms (11) DM2 (diabetes mellitus, type 2) Status: Chronic Qualifiers: Diabetes mellitus group home insulin use: without group home use (12) Glaucoma Code(s): H40.9 - UNSPECIFIED GLAUCOMA Status: Chronic (13) HLD (hyperlipidemia) Code(s): E78.5 - HYPERLIPIDEMIA, UNSPECIFIED Status: Chronic Qualifiers: Hyperlipidemia type: mixed hyperlipidemia Qualified Code(s): E78.2 - Mixed hyperlipidemia (14) HTN (hypertension) Code(s): I10 - ESSENTIAL (PRIMARY) HYPERTENSION Status: Chronic Qualifiers: Hypertension type: essential hypertension Qualified Code(s): I10 - Essential (primary) hypertension - Plan reduce free water via peg to 85mls with meds, continue 6 cans of peg feeding, continue lasix for edema in lower abd wall, scrotal and penile area. will switch to augmentin, nebs, scopalamine tts continue asp, vit B12 s/p peg on 10/23 dc plan in am to [facility] d/w pily and gave full updates, code status was revisited, she wants him to be full code on 10/24/20. prognosis is poor given advanced age, dysphagia, dementia, bed bound status, encephalopathic and [place] resident
[2020-10-26 14:29] LABS: Band 8 % (5-11); Eosinophils 2 % (0-10); Lymphocytes 15 % (21-51); Myelocyte 1 % (0-0); Neutrophil 71 % (42-75); Nucleated RBC 1 % (0); Reactive Lymphocytes 2 % (0-10)
[2020-10-26 14:30] LABS: Ovalocytes SLIGHT = 2-5 cells (100X) (0-1/hpf); Polychromasia MODERATE = 3-4 cells (100X) (0-2/hpf)
[2020-10-26 14:31] LABS: Hypochromia SLIGHT = 6-15 cells (100X) (0-5/hpf); MDiff Complete? YES; Platelet Morphology Comment Appears Adequate
[2020-10-26 14:53] VITALS: BMI 27.1
[2020-10-26] MEDS: Folic Acid 1 MG TAB PER TUBE SCH (22:25)
[2020-10-26] MEDS: Thiamine 100 MG TAB PER TUBE SCH (22:26)
[2020-10-26] MEDS: Melatonin 3 MG TAB PO SCH (22:26)
[2020-10-26] MEDS: Donepezil HCl 10 MG TAB PO SCH (22:26)
[2020-10-26] MEDS: Latanoprost 0.005% Ophth Soln 2.5 ml Bottle EA EYE SCH (22:29)
[2020-10-26] MEDS: Multivit, Therapeutic 1 TAB PER TUBE SCH (23:00)
[2020-10-26] MEDS ORDERED: Meropenem 1 GM in Sodium Chloride 0.9% 100 ML IVPB SCH (23:59)
[2020-10-27] MEDS: MEROPENEM 1 GM/50 ML 1 GM in Premix Bag 1 BAG IVPB SCH (00:53)
[2020-10-27 05:50] LABS: Albumin 2.2 g/dL (3.4-4.8); Anion Gap 11 mmol/L (10-20); BUN (Urea Nitrogen) 20 mg/dL (8.4-25.7); Calc. Creatinine Clearance 64 mL/min (70-130); Calcium 7.3 mg/dL (7.8-10.44); Carbon Dioxide 27 mmol/L (23-31); Chloride 112 mmol/L (98-107); Glucose 140 mg/dL (83-110); Phosphorus 2.3 mg/dL (2.3-4.7); Potassium 3.7 mmol/L (3.5-5.1); Sodium 146 mmol/L (136-145)
[2020-10-27 06:43] LABS: Hemoglobin 8.9 g/dL (14.0-18.0); Mean Corpuscular Hemoglobin 27.5 pg (27.0-31.0); Mean Corpuscular Volume 83.4 fL (78.0-98.0); Mean Platelet Volume 9.4 fL (7.4-10.4); Platelet Count 177 thou/uL (130-400); RBC Distribution Width 14.2 % (11.5-14.5); Red Blood Cell (RBC) Count 3.23 mill/uL (4.70-6.10); White Blood Cell (WBC) Count 8.4 thou/uL (4.8-10.8)
[2020-10-27] MEDS ORDERED: Furosemide 40 MG/4 ML VIAL SLOW IVP SCH (06:45)
[2020-10-27 09:08] LABS: Band 7 % (5-11); Eosinophils 3 % (0-10); Lymphocytes 12 % (21-51); MDiff Complete? YES; Monocytes 6 % (0-10); Neutrophil 71 % (42-75); Nucleated RBC 2 % (0); Platelet Morphology Comment Appears Adequate; Polychromasia SLIGHT = 2-3 cells (100X) (0-2/hpf); Reactive Lymphocytes 1 % (0-10)
[2020-10-27] MEDS: Ascorbic Acid 500 mg Chewable Tablet PO SCH (09:26)
[2020-10-27] MEDS: Aspirin Chewable 81 MG TAB PER TUBE SCH (09:27)
[2020-10-27] MEDS: Pantoprazole 40 MG GRANULES PACKET PER TUBE SCH (09:27)
[2020-10-27] MEDS: Cyanocobalamin (Vitamin B-12) 1,000 MCG TAB PER TUBE SCH (09:27)
[2020-10-27] MEDS: Atorvastatin Calcium 40 MG TAB PO SCH (09:27)
[2020-10-27] MEDS: Amlodipine 10 MG TAB PO SCH (09:27)
[2020-10-27] MEDS: Allopurinol 100 MG TAB PO SCH (09:28)
[2020-10-27] MEDS: Metoprolol Tartrate 50 MG TAB PO SCH (09:28)
[2020-10-27] MEDS: Heparin 5,000 UNITS/ML VIAL SC SCH (09:28)
[2020-10-27] MEDS: Rivastigmine 9.5mg/24 Hour PATCH TD SCH (09:29)
[2020-10-27] MEDS: Dorzolamide HCl 2% Ophth Soln 10 ml Bottle EA EYE SCH (09:29)
[2020-10-27] MEDS: Nystatin Powder 15 GM BOT TOP SCH (09:30)
[2020-10-27] MEDS: Timolol 0.25% Ophth Soln 5 ml Bottle EA EYE SCH (09:30)
[2020-10-27] MEDS: Acetaminophen 650 MG/20.3 ML UDCUP PO PRN (09:37)
[2020-10-27] MEDS: PHOS-NAK 1 PKT PACK PER TUBE SCH ×2 (10:10→14:56)
--- NOTE | 2020-10-27 11:25 | PDOC.NEPPN ---
- Subjective Encounter Date: 10/27/20 Subjective: Seen and examined. No new problem. Got lasix yesterday for edema. - Objective Vital Signs & Weight: Vital Signs (12 hours) Temp Pulse Resp BP BP Pulse Ox 10/27/20 10:08 99.0 F 60 19 130/54 L 98 10/27/20 09:27 65 10/27/20 04:00 98.7 F 65 16 129/62 93 L 10/27/20 00:00 98.8 F 71 16 158/64 H 97 Weight Admit Weight 138 lb Weight 167 lb 3 oz Most Recent Monitor Data Heart Rate from ECG 95 NIBP 135/59 NIBP BP-Mean 84 Respiration from ECG 26 SpO2 100 I&O: 10/26/20 10/27/20 10/28/20 06:59 06:59 06:59 Intake Total 4030 3590 Output Total 3900 2080 Balance 130 1510 Result Diagrams: 10/27/20 06:31 10/27/20 05:23 Additional Labs: Accuchecks 10/27/20 10/26/20 10/26/20 11:07 23:22 17:39 POC Glucose 145 H 95 111 H 10/26/20 12:03 POC Glucose 130 H Nephrology ROS - Medication Medications: Active Medications Generic Name Dose Route Start Last Admin Trade Name Freq PRN Reason Stop Dose Admin Acetaminophen 650 mg 10/22/20 09:55 10/27/20 09:37 Acetaminophen 650 Mg/20.3 Ml Udcup PO 650 mg Q4H PRN Administration pain/fever Allopurinol 100 mg 10/25/20 09:00 10/27/20 09:28 Allopurinol 100 Mg Tab PO 100 mg DAILY ALTAGRACIA Administration Amlodipine Besylate 10 mg 10/25/20 09:00 10/27/20 09:27 Amlodipine 10 Mg Tab PO 10 mg DAILY ALTAGRACIA Administration Ascorbic Acid 500 mg 10/25/20 09:00 10/27/20 09:26 Ascorbic Acid 500 Mg Chewable Tablet PO 500 mg DAILY ALTAGRACIA Administration Aspirin 81 mg 10/20/20 09:00 10/27/20 09:27 Aspirin Chewable 81 Mg Tab PER TUBE 81 mg DAILY ALTAGRACIA Administration Atorvastatin Calcium 20 mg 10/25/20 09:00 10/27/20 09:27 Atorvastatin Calcium 40 Mg Tab PO 20 mg DAILY ALTAGRACIA Administration Cyanocobalamin 1,000 mcg 10/22/20 09:00 10/27/20 09:27 Cyanocobalamin (Vitamin B-12) 1,000 Mcg Tab PER TUBE 1,000 mcg DAILY ALTAGRACIA Administration Donepezil HCl 10 mg 10/25/20 21:00 10/26/20 22:26 Donepezil Hcl 10 Mg Tab PO 10 mg HS ALTAGRACIA Administration Dorzolamide HCl 1 drop 10/25/20 09:00 10/27/20 09:29 Dorzolamide Hcl 2% Ophth Soln 10 Ml Bottle EA EYE 1 drop BID ALTAGRACIA Administration Ergocalciferol 1.25 mg 10/21/20 09:00 10/21/20 11:20 Ergocalciferol 1.25 Mg(50,000 Units) Cap PO 1.25 mg Q7DAYS ALTAGRACIA Administration Folic Acid 1 mg 10/19/20 21:00 10/26/20 22:25 Folic Acid 1 Mg Tab PER TUBE 1 mg HS ALTAGRACIA Administration Heparin Sodium (Porcine) 5,000 units 10/18/20 21:00 10/27/20 09:28 Heparin 5,000 Units/Ml Vial SC 5,000 units BID ALTAGRACIA Administration Sodium Chloride 1,000 mls @ 999 mls/hr 10/19/20 01:00 10/19/20 00:52 Normal Saline 0.9% IV 10/19/20 02:00 1,000 mls .Q1H1M ALTAGRACIA Administration Influenza Virus Vaccine Quadrival 240 mcg 10/19/20 09:00 10/19/20 10:32 Flu Vacc [id number](65yr Up)/Pf 240 Mcg/0.7 Ml Syringe IM 10/19/20 09:01 Not Given .ONCE ONE Insulin Human Regular 0 units 10/19/20 11:50 10/22/20 11:16 Insulin Regular 300 Units/3 Ml Vial SC 2 unit .MODERATE SLIDING SC PRN Administration Moderate Correctional Scale Latanoprost 1 drop 10/19/20 21:00 10/26/20 22:29 Latanoprost 0.005% Ophth Soln 2.5 Ml Bottle EA EYE 1 drop HS ALTAGRACIA Administration Melatonin 3 mg 10/25/20 21:00 10/26/20 22:26 Melatonin 3 Mg Tab PO 3 mg HS ALTAGRACIA Administration Memantine 10 mg 10/25/20 09:00 10/27/20 09:27 Memantine Hcl 10 Mg Tab PO 10 mg DAILY ALTAGRACIA Administration Metoprolol Tartrate 50 mg 10/25/20 09:00 10/27/20 09:28 Metoprolol Tartrate 50 Mg Tab PO 50 mg BID ALTAGRACIA Administration Miscellaneous Medication 1 pkt 10/25/20 15:00 10/27/20 10:10 Phos-Nak 1 Pkt Pack PER TUBE 10/27/20 15:01 1 pkt TID ALTAGRACIA Administration Multivitamins 1 tab 10/19/20 21:00 10/26/20 23:00 Multivit, Therapeutic 1 Tab PER TUBE 1 tab HS ALTAGRACIA Administration Nystatin 0 gm 10/25/20 21:00 10/27/20 09:30 Nystatin Powder 15 Gm Bot TOP 1 applic BID ALTAGRACIA Administration Pantoprazole Sodium 40 mg 10/25/20 09:00 10/27/20 09:27 Pantoprazole 40 Mg Granules Packet PER TUBE 40 mg DAILY ALTAGRACIA Administration Rivastigmine 9.5 mg 10/25/20 09:00 10/27/20 09:29 Rivastigmine 9.5mg/24 Hour Patch TD 9.5 mg DAILY ALTAGRACIA Administration Sodium Bicarbonate 50 meq 10/19/20 01:15 10/19/20 10:32 Sodium Bicarb 50 Meq/50 Ml Abboject 8.4% Syringe IVP 10/19/20 03:15 Not Given NOW ALTAGRACIA Sodium Chloride 10 ml 10/22/20 09:00 10/27/20 09:30 Flush - Normal Saline 10 Ml Syringe IVF 10 ml Q12HR ALTAGRACIA Administration Thiamine HCl 100 mg 10/19/20 21:00 10/26/20 22:26 Thiamine 100 Mg Tab PER TUBE 100 mg HS ALTAGRACIA Administration Timolol Maleate 1 drop 10/20/20 09:00 10/27/20 09:30 Timolol 0.25% Ophth Soln 5 Ml Bottle EA EYE 1 drop BID ALTAGRACIA Administration - Exam General - other findings: sleeping but easily arousable. ENT: normocephalic atraumatic, moist mucosa Neck: symmetric Respiratory - other findings: fair air entry bilaterally Cardiovascular: RRR Gastrointestinal: soft, non-distended, normal bowel sounds Gastrointestinal - other findings: Villanueva catheter in place Extremities - other findings: trace to mild edema of the extreities Neurological: CN's grossly intact, no new deficit PSYCH: oriented to person Psychiatric - other findings: confused Nephrology Results - Labs Result Diagrams: 10/27/20 06:31 10/27/20 05:23 Lab results: WBC 8.4 thou/uL (4.8-10.8) 10/27/20 06:31 Hgb 8.9 g/dL (14.0-18.0) L 10/27/20 06:31 Hct 26.9 % (42.0-52.0) L 10/27/20 06:31 MCV 83.4 fL (78.0-98.0) 10/27/20 06:31 Plt Count 177 thou/uL (130-400) 10/27/20 06:31 Neutrophils % 85.0 % (42.0-75.0) H 10/18/20 17:14 Band Neuts % (Manual) 7 % (5-11) 10/27/20 06:31 ABG pH 7.26 (7.35-7.45) L 10/18/20 17:20 ABG pCO2 25.9 mmHg (35.0-45.0) L* 10/18/20 17:20 ABG pO2 91.7 mmHg (> 60.0) H 10/18/20 17:20 Sodium 146 mmol/L (136-145) H 10/27/20 05:23 Potassium 3.7 mmol/L (3.5-5.1) 10/27/20 05:23 Chloride 112 mmol/L (98-107) H 10/27/20 05:23 Carbon Dioxide 27 mmol/L (23-31) 10/27/20 05:23 BUN 20 mg/dL (8.4-25.7) 10/27/20 05:23 Creatinine 1.00 mg/dL (0.7-1.3) 10/27/20 05:23 Glucose 140 mg/dL (83-110) H 10/27/20 05:23 Lactic Acid 1.7 mmol/L (0.5-2.2) 10/20/20 03:40 Calcium 7.3 mg/dL (7.8-10.44) L 10/27/20 05:23 Total Bilirubin 0.5 mg/dL (0.2-1.2) 10/20/20 03:40 AST 42 U/L (5-34) H 10/20/20 03:40 ALT 41 U/L (8-55) 10/20/20 03:40 Alkaline Phosphatase 64 U/L (40-110) 10/20/20 03:40 Creatine Kinase 408 U/L (30-200) H 10/24/20 10:48 Troponin I 0.278 ng/mL (< 0.028) H 10/18/20 19:21 Serum Total Protein 5.2 g/dL (5.8-8.1) L 10/20/20 03:40 Albumin 2.2 g/dL (3.4-4.8) L 10/27/20 05:23 Sodium 146 mmol/L (136-145) H 10/27/20 05:23 Potassium 3.7 mmol/L (3.5-5.1) 10/27/20 05:23 Chloride 112 mmol/L (98-107) H 10/27/20 05:23 Carbon Dioxide 27 mmol/L (23-31) 10/27/20 05:23 Anion Gap 11 mmol/L (10-20) 10/27/20 05:23 BUN 20 mg/dL (8.4-25.7) 10/27/20 05:23 Creatinine 1.00 mg/dL (0.7-1.3) 10/27/20 05:23 Glucose 140 mg/dL (83-110) H 10/27/20 05:23 Calcium 7.3 mg/dL (7.8-10.44) L 10/27/20 05:23 Phosphorus 2.3 mg/dL (2.3-4.7) 10/27/20 05:23 Magnesium 1.9 mg/dL (1.6-2.6) 10/24/20 10:48 Albumin 2.2 g/dL (3.4-4.8) L 10/27/20 05:23 Nephrology AP PN - Plan Acute renal failure with marked azotemia: Due to hemodynamic factors related to severe dehydration, and bactrim and lisinopril use, and rhabdomyolysis. Improved. Severe dehydration : resolved Hypernatremia: Due to free water deficit from poor oral intake and diuretic use. Sodium is up today to 146 with lasix. Severe metabolic acidosis: 2/2 Acute renal failure and metformin use. Resolved Rhabdomyolysis: Resolved Encephalopathy.Due to ARF and electrolyte derangement superimposed on dementia. Improving. Hypokalemia: repleted HTN: Control is better Hx of Dementia Hypophosphatemia: Vit D deficiency Edema Mostly due to hypoalbuminemia PLAN Change free water flushess to 400 every 4 hours Continue lasix as needed for edema Continue amlodipine and metoprolol adequate BP control Avoid nehrotoxic agents including metformin, lisinopril and diuretics. Other treatments as per primary attending. Follow electrolytes and renal function
[2020-10-27 14:19] VITALS: BP 121/59; TEMP 99.1
--- NOTE | 2020-10-27 15:16 | PDOC.HOSPP ---
- Subjective Encounter Date: 10/27/20 Encounter Time: 11:00 Subjective: no new complaints, does not talk much not in distress - Objective Vital Signs & Weight: Vital Signs (12 hours) Temp Pulse Resp BP BP Pulse Ox 10/27/20 14:15 99.1 F 56 L 19 121/59 L 10/27/20 10:08 99.0 F 60 19 130/54 L 98 10/27/20 09:27 65 10/27/20 04:00 98.7 F 65 16 129/62 93 L Weight Admit Weight 138 lb Weight 167 lb 3 oz Most Recent Monitor Data Heart Rate from ECG 95 NIBP 135/59 NIBP BP-Mean 84 Respiration from ECG 26 SpO2 100 I&O: 10/26/20 10/27/20 10/28/20 06:59 06:59 06:59 Intake Total 4030 3590 644 Output Total 3900 2080 Balance 130 1510 644 Result Diagrams: 10/27/20 06:31 10/27/20 05:23 Additional Labs: Accuchecks 10/27/20 10/26/20 10/26/20 11:07 23:22 17:39 POC Glucose 145 H 95 111 H Hospitalist ROS - Medication Medications: Active Medications Generic Name Dose Route Start Last Admin Trade Name Freq PRN Reason Stop Dose Admin Acetaminophen 650 mg 10/22/20 09:55 10/27/20 09:37 Acetaminophen 650 Mg/20.3 Ml Udcup PO 650 mg Q4H PRN Administration pain/fever Allopurinol 100 mg 10/25/20 09:00 10/27/20 09:28 Allopurinol 100 Mg Tab PO 100 mg DAILY ALTAGRACIA Administration Amlodipine Besylate 10 mg 10/25/20 09:00 10/27/20 09:27 Amlodipine 10 Mg Tab PO 10 mg DAILY ALTAGRACIA Administration Ascorbic Acid 500 mg 10/25/20 09:00 10/27/20 09:26 Ascorbic Acid 500 Mg Chewable Tablet PO 500 mg DAILY ALTAGRACIA Administration Aspirin 81 mg 10/20/20 09:00 10/27/20 09:27 Aspirin Chewable 81 Mg Tab PER TUBE 81 mg DAILY ALTAGRACIA Administration Atorvastatin Calcium 20 mg 10/25/20 09:00 10/27/20 09:27 Atorvastatin Calcium 40 Mg Tab PO 20 mg DAILY ALTAGRACIA Administration Cyanocobalamin 1,000 mcg 10/22/20 09:00 10/27/20 09:27 Cyanocobalamin (Vitamin B-12) 1,000 Mcg Tab PER TUBE 1,000 mcg DAILY ALTAGRACIA Administration Donepezil HCl 10 mg 10/25/20 21:00 10/26/20 22:26 Donepezil Hcl 10 Mg Tab PO 10 mg HS ALTAGRACIA Administration Dorzolamide HCl 1 drop 10/25/20 09:00 10/27/20 09:29 Dorzolamide Hcl 2% Ophth Soln 10 Ml Bottle EA EYE 1 drop BID ALTAGRACIA Administration Ergocalciferol 1.25 mg 10/21/20 09:00 10/21/20 11:20 Ergocalciferol 1.25 Mg(50,000 Units) Cap PO 1.25 mg Q7DAYS ALTAGRACIA Administration Folic Acid 1 mg 10/19/20 21:00 10/26/20 22:25 Folic Acid 1 Mg Tab PER TUBE 1 mg HS ALTAGRACIA Administration Heparin Sodium (Porcine) 5,000 units 10/18/20 21:00 10/27/20 09:28 Heparin 5,000 Units/Ml Vial SC 5,000 units BID ALTAGRACIA Administration Sodium Chloride 1,000 mls @ 999 mls/hr 10/19/20 01:00 10/19/20 00:52 Normal Saline 0.9% IV 10/19/20 02:00 1,000 mls .Q1H1M ALTAGRACIA Administration Influenza Virus Vaccine Quadrival 240 mcg 10/19/20 09:00 10/19/20 10:32 Flu Vacc [id number](65yr Up)/Pf 240 Mcg/0.7 Ml Syringe IM 10/19/20 09:01 Not Given .ONCE ONE Insulin Human Regular 0 units 10/19/20 11:50 10/22/20 11:16 Insulin Regular 300 Units/3 Ml Vial SC 2 unit .MODERATE SLIDING SC PRN Administration Moderate Correctional Scale Latanoprost 1 drop 10/19/20 21:00 10/26/20 22:29 Latanoprost 0.005% Ophth Soln 2.5 Ml Bottle EA EYE 1 drop HS ALTAGRACIA Administration Melatonin 3 mg 10/25/20 21:00 10/26/20 22:26 Melatonin 3 Mg Tab PO 3 mg HS ALTAGRACIA Administration Memantine 10 mg 10/25/20 09:00 10/27/20 09:27 Memantine Hcl 10 Mg Tab PO 10 mg DAILY ALTAGRACIA Administration Metoprolol Tartrate 50 mg 10/25/20 09:00 10/27/20 09:28 Metoprolol Tartrate 50 Mg Tab PO 50 mg BID ALTAGRACIA Administration Multivitamins 1 tab 10/19/20 21:00 10/26/20 23:00 Multivit, Therapeutic 1 Tab PER TUBE 1 tab HS ALTAGRACIA Administration Nystatin 0 gm 10/25/20 21:00 10/27/20 09:30 Nystatin Powder 15 Gm Bot TOP 1 applic BID ALTAGRACIA Administration Pantoprazole Sodium 40 mg 10/25/20 09:00 10/27/20 09:27 Pantoprazole 40 Mg Granules Packet PER TUBE 40 mg DAILY ALTAGRACIA Administration Rivastigmine 9.5 mg 10/25/20 09:00 10/27/20 09:29 Rivastigmine 9.5mg/24 Hour Patch TD 9.5 mg DAILY ALTAGRACIA Administration Sodium Bicarbonate 50 meq 10/19/20 01:15 10/19/20 10:32 Sodium Bicarb 50 Meq/50 Ml Abboject 8.4% Syringe IVP 10/19/20 03:15 Not Given NOW [facility] Sodium Chloride 10 ml 10/22/20 09:00 10/27/20 09:30 Flush - Normal Saline 10 Ml Syringe IVF 10 ml Q12HR ALTAGRACIA Administration Thiamine HCl 100 mg 10/19/20 21:00 10/26/20 22:26 Thiamine 100 Mg Tab PER TUBE 100 mg HS ALTAGRACIA Administration Timolol Maleate 1 drop 10/20/20 09:00 10/27/20 09:30 Timolol 0.25% Ophth Soln 5 Ml Bottle EA EYE 1 drop BID ALTAGRACIA Administration Hospitalist Exam Vitals: Vital Signs (12 hours) Temp Pulse Resp BP BP Pulse Ox 10/27/20 14:15 99.1 F 56 L 19 121/59 L 10/27/20 10:08 99.0 F 60 19 130/54 L 98 10/27/20 09:27 65 10/27/20 04:00 98.7 F 65 16 129/62 93 L Weight Admit Weight 138 lb Weight 167 lb 3 oz Most Recent Monitor Data Heart Rate from ECG 95 NIBP 135/59 NIBP BP-Mean 84 Respiration from ECG 26 SpO2 100 General Appearance: awake alert Eye: PERRL, anicteric sclera ENT: no oropharyngeal lesions, moist mucosa Neck: supple, no JVD Heart: RRR, no murmur Respiratory: no wheezes, no rales Gastrointestinal: soft, non-tender, non-distended, normal bowel sounds Gastrointestinal - other findings: peg+ Extremities: no cyanosis, no edema Neurological: cranial nerve grossly intact, no focal deficits Hosp A/P (1) Acute metabolic encephalopathy Code(s): G93.41 - METABOLIC ENCEPHALOPATHY Status: Resolved (2) Dysphagia Code(s): R13.10 - DYSPHAGIA, UNSPECIFIED Status: Acute Qualifiers: Dysphagia type: oropharyngeal phase Qualified Code(s): R13.12 - Dysphagia, oropharyngeal phase (3) Hyperosmolality and hypernatremia Code(s): E87.0 - HYPEROSMOLALITY AND HYPERNATREMIA Status: Resolved (4) Hypokalemia Code(s): E87.6 - HYPOKALEMIA Status: Resolved (5) Metabolic acidosis Code(s): E87.2 - ACIDOSIS Status: Resolved (6) Rhabdomyolysis Code(s): M62.82 - RHABDOMYOLYSIS Status: Resolved Qualifiers: Rhabdomyolysis type: non-traumatic Qualified Code(s): M62.82 - Rhabdomyolysis (7) Sacral decubitus ulcer, stage II Code(s): L89.152 - PRESSURE ULCER OF SACRAL REGION, STAGE 2 Status: Chronic (8) Dehydration Code(s): E86.0 - DEHYDRATION Status: Resolved (9) Alzheimer's dementia Code(s): G30.9 - ALZHEIMER'S DISEASE, UNSPECIFIED; F02.80 - DEMENTIA IN OTH DISEASES CLASSD ELSWHR W/O BEHAVRL DISTURB Status: Chronic Qualifiers: Alzheimer's disease onset: unspecified onset (10) BPH (benign prostatic hyperplasia) Code(s): N40.0 - BENIGN PROSTATIC HYPERPLASIA WITHOUT LOWER URINRY TRACT SYMP Status: Chronic Qualifiers: Lower urinary tract symptom presence: symptoms absent Qualified Code(s): N40.0 - Benign prostatic hyperplasia without lower urinary tract symptoms (11) DM2 (diabetes mellitus, type 2) Status: Chronic Qualifiers: Diabetes mellitus termination clerk insulin use: without penitentiary use (12) Glaucoma Code(s): H40.9 - UNSPECIFIED GLAUCOMA Status: Chronic (13) HLD (hyperlipidemia) Code(s): E78.5 - HYPERLIPIDEMIA, UNSPECIFIED Status: Chronic Qualifiers: Hyperlipidemia type: mixed hyperlipidemia Qualified Code(s): E78.2 - Mixed hyperlipidemia (14) HTN (hypertension) Code(s): I10 - ESSENTIAL (PRIMARY) HYPERTENSION Status: Chronic Qualifiers: Hypertension type: essential hypertension Qualified Code(s): I10 - Essential (primary) hypertension - Plan free water via peg 85mls with meds, continue 6 cans of peg feeding. He will need outpt urology appt in 10 days, to leave street in for dc. is on augmentin, nebs continue asp, vit B12 s/p peg on 10/23 dc plan to [facility] d/w pily and gave full updates, code status was revisited, she wants him to be full code on 10/24/20. prognosis is poor given advanced age, dysphagia, dementia, bed bound status, encephalopathic and [place] resident
--- NOTE | 2020-10-27 18:21 | DIS ---
DATE OF ADMISSION: 10/18/2020 DATE OF DISCHARGE: 10/27/2020 DISCHARGE DISPOSITION: [facility]. PRIMARY DISCHARGE DIAGNOSES: 1. Severe dehydration with severe hypernatremia and hyperosmolality secondary to dysphagia and inability to eat or drink. 2. Acute metabolic encephalopathy secondary to above. 3. Metabolic acidosis/acute kidney injury secondary to above. 4. Rhabdomyolysis. 5. Multiple electrolyte abnormalities. 6. Advanced dementia. 7. Sacral decubitus stage II. 8. Benign prostatic hypertrophy. 9. Diabetes mellitus type 2. 10. Glaucoma. 11. Hypertension. 12. Dyslipidemia. PROCEDURES DONE DURING HOSPITALIZATION: The patient has had a PEG tube placed on 10/23/2020. CT brain without contrast on admission showed no acute intracranial abnormality. Ultrasound of the kidneys done showed right renal cysts. Blood cultures x2, no growth. Urine culture, no growth. Hemoglobin and hematocrit 9 and 27, platelet count 177, white count of 8, MCV 83. Initial sodium levels were greater than 175. Discharge sodium is 146, discharge BUN and creatinine 20 and 1.0, albumin is 2.2. Admitting BUN and creatinine was 151 and 4.3 with serum bicarb of 10. COVID-19 PCR was not detected on 10/18/2020. DISCHARGE MEDICATIONS: 1. Allopurinol 100 mg p.o. daily. 2. Exelon patch 9.5 mg one patch daily. 3. Timolol, latanoprost and dorzolamide eyedrops as before. 4. Atorvastatin 20 mg daily. 5. Melatonin 2 mg p.o. at bedtime. 6. Metoprolol tartrate 50 mg twice daily. 7. Norvasc 10 mg daily. 8. Nuedexta 20 mg daily. 9. Ultram 50 mg every 6 hours p.r.n. 10. Vitamin C 500 mg p.o. twice daily. 11. Donepezil 10 mg p.o. at bedtime. 12. Ergocalciferol 1.25 mg p.o. once weekly. 13. DuoNeb every 6 hours p.r.n. 14. Folic acid 1 mg p.o. at bedtime. 15. Namenda 10 mg p.o. daily. 16. Multivitamin one tablet daily. 17. Vitamin B12 1000 mcg daily. ALLERGIES: IODINE. INPATIENT CONSULT: Dr. Nelson for Nephrology, Dr. Alvarez for Gastroenterology, Dr. Barreto for Pulmonology. BRIEF COURSE DURING HOSPITALIZATION: The patient initially was sent over from [facility] for altered mental state. On arrival, the patient's sodium was more than 175 with acute kidney injury and obtundation. The patient was severely dehydrated with multiple electrolyte abnormalities secondary to poor oral intake and dysphagia. He likely has underlying advanced dementia. The patient's family and a power of state attorney, Ms. Selene Potter, niece wanted everything to be done including full code and a PEG tube. In view of this, Gastroenterology consultation was requested with Dr. Alvarez. The patient was volume resuscitated with correction of multiple electrolyte abnormalities including acute renal failure. He was initially placed in ICU, later downgraded to medical floor. He is currently tolerating six cans of PEG feeding along with 100 mL of free water with medications. This can be slowly escalated. The free water can be increased based on electrolyte levels in 3 to 4 days at the [facility]. His overall prognosis is guarded due to advanced dementia and multiple medical issues along with bed bound status. He is otherwise hemodynamically stable and will be discharged back to his [facility] at [facility]. A total of 35 minutes was spent on discharge plan. Please see a [id number] documentation for the day of discharge on [employer]. Job ID: [id number]
== END 2020-10-27 16:43 | DRG 871 ==
LOC: CCU 16:52 → 3SE 10-21 02:28
PROVIDERS: ADMIT Internal Medicine; ATTEND Internal Medicine
PROC: 0DJ08ZZ Inspection of Upper Intestinal Tract, Via Natural or Artificial Opening Endoscopic (ICD-10-PCS; principal; 2020-10-23)
PROC: 0DH63UZ Insertion of Feeding Device into Stomach, Percutaneous Approach (ICD-10-PCS; 2020-10-23)
PROC: 3E0G76Z Introduction of Nutritional Substance into Upper GI, Via Natural or Artificial Opening (ICD-10-PCS; 2020-10-23)
DX: A41.9 Sepsis, unspecified organism (principal); G93.41 Metabolic encephalopathy; J69.0 Pneumonitis due to inhalation of food and vomit; E87.0 Hyperosmolality and hypernatremia; N17.9 Acute kidney failure, unspecified; M62.82 Rhabdomyolysis; E87.2 Acidosis; I24.8 Other forms of acute ischemic heart disease; G30.9 Alzheimer's disease, unspecified; F02.80 Dementia in other diseases classified elsewhere, unspecified severity, without behavioral disturbance, psychotic disturbance, mood disturbance, and anxiety; I12.9 Hypertensive chronic kidney disease with stage 1 through stage 4 chronic kidney disease, or unspecified chronic kidney disease; E11.22 Type 2 diabetes mellitus with diabetic chronic kidney disease; N40.0 Benign prostatic hyperplasia without lower urinary tract symptoms; E78.5 Hyperlipidemia, unspecified; L89.152 Pressure ulcer of sacral region, stage 2; R13.12 Dysphagia, oropharyngeal phase; N47.2 Paraphimosis; E55.9 Vitamin D deficiency, unspecified; N18.2 Chronic kidney disease, stage 2 (mild); H40.9 Unspecified glaucoma; E88.09 Other disorders of plasma-protein metabolism, not elsewhere classified; E86.0 Dehydration; Z20.822 Contact with and (suspected) exposure to COVID-19; E87.6 Hypokalemia; E83.39 Other disorders of phosphorus metabolism; Z91.041 Radiographic dye allergy status; Z79.84 Long term (current) use of oral hypoglycemic drugs; Z86.73 Personal history of transient ischemic attack (TIA), and cerebral infarction without residual deficits; Z74.01 Bed confinement status
CPT/HCPCS: 36415; 36416; 36600; 70450; 71045; 76770; 80048; 80053; 80069; 80202; 82306; 82533; 82550; 82570; 82805; 83605; 83735; 84100; 84145; 84156; 84300; 84443; 84484; 84540; 85007; 85027; 85610; 85730; 86769; 87086; 87635; J1644; J1815; J1940; J2185; J2543; J2704; J3370; J3490; J7050; J7070; S0028; U0003; U0005